=== PATIENT | female | born 1975 | race Caucasian/White ===

== ENCOUNTER 2018-11-28 20:56 | Emergency (ER) | payer BC, MEDICARE ==
--- NOTE | 2018-11-28 22:57 | ED ---
General Adult HPI - General Chief complaint: Recheck/Abnormal Lab/Rx Stated complaint: Stiff muscles & swelling Time Seen by Provider: 11/28/18 22:29 Source: patient, RN notes reviewed, old records reviewed Mode of arrival: ambulatory Limitations: no limitations - History of Present Illness Initial comments: This is a 43-year-old male the ER for evaluation. Patient has history of multiple medical issues. Psychiatric issues. Patient coming in today for joint pain and swelling. Joint pain throughout her body. Hand smoke mainly with most likely. Which she also has knees and ankles and hips, neck pain. Patient denies any trauma. No fevers. No nausea vomiting or diarrhea. No other associated complaints -: days(s) Location: neck, upper extremity, lower extremity Radiation: non-radiation Severity scale (1-10): 1 Quality: aching Consistency: constant, intermittent Improves with: none Worsens with: none Associated Symptoms: denies other symptoms Treatments Prior to Arrival: none - Related Data Home Medications Medication Instructions Recorded Confirmed Cholecalciferol [Vitamin D3] 1,000 unit PO DAILY 11/28/18 11/28/18 Cinnamon Bark [Cinnamon] 500 mg PO DAILY 11/28/18 11/28/18 Ibuprofen [Motrin] 600 mg PO Q8HR PRN 11/28/18 11/28/18 LORazepam [Ativan] 0.5 mg PO HS PRN 11/28/18 11/28/18 Magnesium 200 mg PO DAILY 11/28/18 11/28/18 [place]-3 Fatty Acids/Fish Oil [Fish 1 cap PO DAILY 11/28/18 11/28/18 Oil 1,000 mg Softgel] Phytonadione [Vitamin K] 5 mg PO DAILY 11/28/18 11/28/18 Psyllium Husk 100% [Metamucil 6 gm PO DAILY 11/28/18 11/28/18 Packet] carBAMazepine [TEGretol] 400 mg PO HS 11/28/18 11/28/18 Previous Rx's Medication Instructions Recorded predniSONE 50 mg PO DAILY #5 tab 11/29/18 Allergies Allergy/AdvReac Type Severity Reaction Status Date / Time acetaminophen [From Vicodin] Allergy Dyspnea Verified 11/28/18 23:04 hydrocodone [From Vicodin] Allergy Dyspnea Verified 11/28/18 23:04 lamotrigine [From Lamictal] Allergy Dyspnea Verified 11/28/18 23:04 Sulfa (Sulfonamide Allergy Rash/Hives Verified 11/28/18 23:04 Antibiotics) Review of Systems ROS Statement: Those systems with pertinent positive or pertinent negative responses have been documented in the HPI. ROS Other: All systems not noted in ROS Statement are negative. Past Medical History Past Medical History: Osteoarthritis (OA) History of Any Multi-Drug Resistant Organisms: None Reported Past Surgical History: No Surgical Hx Reported Past Psychological History: Bipolar Smoking Status: Current every day smoker Past Alcohol Use History: None Reported Past Drug Use History: None Reported General Exam Limitations: no limitations General appearance: alert, in no apparent distress Head exam: Present: atraumatic, normocephalic, normal inspection Eye exam: Present: normal appearance, PERRL, EOMI. Absent: scleral icterus, conjunctival injection, periorbital swelling ENT exam: Present: normal exam, mucous membranes moist Neck exam: Present: normal inspection. Absent: tenderness, meningismus, lymphadenopathy Respiratory exam: Present: normal lung sounds bilaterally. Absent: respiratory distress, wheezes, rales, rhonchi, stridor Cardiovascular Exam: Present: regular rate, normal rhythm, normal heart sounds. Absent: systolic murmur, diastolic murmur, rubs, gallop, clicks GI/Abdominal exam: Present: soft, normal bowel sounds. Absent: distended, tenderness, guarding, rebound, rigid Extremities exam: Present: normal inspection, full ROM, normal capillary refill. Absent: tenderness, pedal edema, joint swelling, calf tenderness Back exam: Present: normal inspection Neurological exam: Present: alert, oriented X3, CN II-XII intact Psychiatric exam: Present: normal affect, normal mood Skin exam: Present: warm, dry, intact, normal color. Absent: rash Course Vital Signs 11/28/18 21:25 Temperature 98.8 F Pulse Rate 94 Respiratory 18 Rate Blood Pressure 157/84 O2 Sat by Pulse 98 Oximetry - Reevaluation(s) Reevaluation #1: 11/28/18 23:02 Medical records reviewed, noncontributory Reevaluation #2: 11/28/18 23:02 Symptoms improved Medical Decision Making - Medical Decision Making 43 female the ER with multiple joints affecting her, swelling and arthritis. Patient be discharged to continue Motrin at home and start taking steroids here in the hospital. We will also discharge on short dose of steroids to follow-up with primary care - Lab Data Result diagrams: 11/28/18 22:55 11/28/18 22:55 Lab Results 11/28/18 11/28/18 11/28/18 Range/Units 22:55 22:55 22:55 WBC 9.7 (3.8-10.6) k/uL RBC 4.30 (3.80-5.40) m/uL Hgb 13.6 (11.4-16.0) gm/dL Hct 40.9 (34.0-46.0) % MCV 95.0 (80.0-100.0) fL MCH 31.5 (25.0-35.0) pg MCHC 33.2 (31.0-37.0) g/dL RDW 12.2 (11.5-15.5) % Plt Count 271 (150-450) k/uL Neutrophils % 59 % Lymphocytes % 33 % Monocytes % 6 % Eosinophils % 1 % Basophils % 0 % Neutrophils # 5.7 (1.3-7.7) k/uL Lymphocytes # 3.2 (1.0-4.8) k/uL Monocytes # 0.5 (0-1.0) k/uL Eosinophils # 0.1 (0-0.7) k/uL Basophils # 0.0 (0-0.2) k/uL Sodium 137 (137-145) mmol/L Potassium 4.4 (3.5-5.1) mmol/L Chloride 106 (98-107) mmol/L Carbon Dioxide 23 (22-30) mmol/L Anion Gap 8 mmol/L BUN 14 (7-17) mg/dL Creatinine 0.49 L (0.52-1.04) mg/dL Est GFR (CKD-EPI)AfAm >90 (>60 ml/min/1.73 sqM) Est GFR (CKD-EPI)NonAf >90 (>60 ml/min/1.73 sqM) Glucose 92 (74-99) mg/dL Calcium 9.4 (8.4-10.2) mg/dL Phosphorus 4.0 (2.5-4.5) mg/dL Magnesium 2.0 (1.6-2.3) mg/dL Total Bilirubin 0.3 (0.2-1.3) mg/dL AST 18 (14-36) U/L ALT 25 (9-52) U/L Alkaline Phosphatase 48 (38-126) U/L Creatine Kinase 51 (30-135) U/L CK-MB (CK-2) 0.4 (0.0-2.4) ng/mL Total Protein 6.5 (6.3-8.2) g/dL Albumin 4.1 (3.5-5.0) g/dL Heterophile Antibody (Negative) 11/28/18 Range/Units 23:10 WBC (3.8-10.6) k/uL RBC (3.80-5.40) m/uL Hgb (11.4-16.0) gm/dL Hct (34.0-46.0) % MCV (80.0-100.0) fL MCH (25.0-35.0) pg MCHC (31.0-37.0) g/dL RDW (11.5-15.5) % Plt Count (150-450) k/uL Neutrophils % % Lymphocytes % % Monocytes % % Eosinophils % % Basophils % % Neutrophils # (1.3-7.7) k/uL Lymphocytes # (1.0-4.8) k/uL Monocytes # (0-1.0) k/uL Eosinophils # (0-0.7) k/uL Basophils # (0-0.2) k/uL Sodium (137-145) mmol/L Potassium (3.5-5.1) mmol/L Chloride (98-107) mmol/L Carbon Dioxide (22-30) mmol/L Anion Gap mmol/L BUN (7-17) mg/dL Creatinine (0.52-1.04) mg/dL Est GFR (CKD-EPI)AfAm (>60 ml/min/1.73 sqM) Est GFR (CKD-EPI)NonAf (>60 ml/min/1.73 sqM) Glucose (74-99) mg/dL Calcium (8.4-10.2) mg/dL Phosphorus (2.5-4.5) mg/dL Magnesium (1.6-2.3) mg/dL Total Bilirubin (0.2-1.3) mg/dL AST (14-36) U/L ALT (9-52) U/L Alkaline Phosphatase (38-126) U/L Creatine Kinase (30-135) U/L CK-MB (CK-2) (0.0-2.4) ng/mL Total Protein (6.3-8.2) g/dL Albumin (3.5-5.0) g/dL Heterophile Antibody Negative (Negative) Disposition Clinical Impression: Polyarthritis Disposition: HOME SELF-CARE Condition: Good Instructions (If sedation given, give patient instructions): Arthralgia (ED), Arthritis (ED) Prescriptions: predniSONE 50 mg PO DAILY #5 tab Is patient prescribed a controlled substance at d/c from ED?: No Referrals: Stanton Wen DO [Primary Care Provider] - 1-2 days
[2018-11-28] MEDS: SODIUM CHLORIDE 0.9% 1,000 ML IV STA (23:03)
[2018-11-28] MEDS: KETOROLAC 30 MG/ML 1 ML VIAL IVP STA (23:05)
[2018-11-28] MEDS: DEXAMETHASONE SOD PHOSPHATE 10 MG/ML 1 ML VIAL IV STA (23:06)
[2018-11-28] MEDS: MORPHINE SULFATE 4 MG/ML SYRINGE IV STA (23:07)
[2018-11-29 00:23] LABS: Basophils % (A) 0 %; Eosinophils # (A) 0.1 k/uL (0-0.7); Eosinophils % (A) 1 %; HCT 40.9 % (34.0-46.0); HGB 13.6 gm/dL (11.4-16.0); Lymphocytes # (A) 3.2 k/uL (1.0-4.8); Lymphocytes % (A) 33 %; MCH 31.5 pg (25.0-35.0); MCHC 33.2 g/dL (31.0-37.0); Mean Platelet Volume 6.5; Monocytes # (A) 0.5 k/uL (0-1.0); Monocytes % (A) 6 %; Neutrophils # (A) 5.7 k/uL (1.3-7.7); Neutrophils % (A) 59 %; Platelet Count 271 k/uL (150-450); RDW 12.2 % (11.5-15.5); WBC 9.7 k/uL (3.8-10.6)
[2018-11-29 00:28] LABS: ALT 25 U/L (9-52); AST 18 U/L (14-36); Albumin 4.1 g/dL (3.5-5.0); Alkaline Phosphatase 48 U/L (38-126); Anion Gap 8 mmol/L; Blood Urea Nitrogen 14 mg/dL (7-17); Calcium 9.4 mg/dL (8.4-10.2); Carbon Dioxide 23 mmol/L (22-30); Chloride 106 mmol/L (98-107); Creatine Kinase 51 U/L (30-135); Glucose 92 mg/dL (74-99); Potassium 4.4 mmol/L (3.5-5.1); Sodium 137 mmol/L (137-145); Total Bilirubin 0.3 mg/dL (0.2-1.3); Total Protein 6.5 g/dL (6.3-8.2)
--- NOTE | 2018-11-29 01:46 | ED ---
Medical Decision Making - Lab Data Result diagrams: 11/28/18 22:55 11/28/18 22:55 Lab Results 11/28/18 11/28/18 11/28/18 Range/Units 22:55 22:55 22:55 WBC 9.7 (3.8-10.6) k/uL RBC 4.30 (3.80-5.40) m/uL Hgb 13.6 (11.4-16.0) gm/dL Hct 40.9 (34.0-46.0) % MCV 95.0 (80.0-100.0) fL MCH 31.5 (25.0-35.0) pg MCHC 33.2 (31.0-37.0) g/dL RDW 12.2 (11.5-15.5) % Plt Count 271 (150-450) k/uL Neutrophils % 59 % Lymphocytes % 33 % Monocytes % 6 % Eosinophils % 1 % Basophils % 0 % Neutrophils # 5.7 (1.3-7.7) k/uL Lymphocytes # 3.2 (1.0-4.8) k/uL Monocytes # 0.5 (0-1.0) k/uL Eosinophils # 0.1 (0-0.7) k/uL Basophils # 0.0 (0-0.2) k/uL Sodium 137 (137-145) mmol/L Potassium 4.4 (3.5-5.1) mmol/L Chloride 106 (98-107) mmol/L Carbon Dioxide 23 (22-30) mmol/L Anion Gap 8 mmol/L BUN 14 (7-17) mg/dL Creatinine 0.49 L (0.52-1.04) mg/dL Est GFR (CKD-EPI)AfAm >90 (>60 ml/min/1.73 sqM) Est GFR (CKD-EPI)NonAf >90 (>60 ml/min/1.73 sqM) Glucose 92 (74-99) mg/dL Calcium 9.4 (8.4-10.2) mg/dL Phosphorus 4.0 (2.5-4.5) mg/dL Magnesium 2.0 (1.6-2.3) mg/dL Total Bilirubin 0.3 (0.2-1.3) mg/dL AST 18 (14-36) U/L ALT 25 (9-52) U/L Alkaline Phosphatase 48 (38-126) U/L Creatine Kinase 51 (30-135) U/L CK-MB (CK-2) 0.4 (0.0-2.4) ng/mL Total Protein 6.5 (6.3-8.2) g/dL Albumin 4.1 (3.5-5.0) g/dL Heterophile Antibody (Negative) 11/28/18 Range/Units 23:10 WBC (3.8-10.6) k/uL RBC (3.80-5.40) m/uL Hgb (11.4-16.0) gm/dL Hct (34.0-46.0) % MCV (80.0-100.0) fL MCH (25.0-35.0) pg MCHC (31.0-37.0) g/dL RDW (11.5-15.5) % Plt Count (150-450) k/uL Neutrophils % % Lymphocytes % % Monocytes % % Eosinophils % % Basophils % % Neutrophils # (1.3-7.7) k/uL Lymphocytes # (1.0-4.8) k/uL Monocytes # (0-1.0) k/uL Eosinophils # (0-0.7) k/uL Basophils # (0-0.2) k/uL Sodium (137-145) mmol/L Potassium (3.5-5.1) mmol/L Chloride (98-107) mmol/L Carbon Dioxide (22-30) mmol/L Anion Gap mmol/L BUN (7-17) mg/dL Creatinine (0.52-1.04) mg/dL Est GFR (CKD-EPI)AfAm (>60 ml/min/1.73 sqM) Est GFR (CKD-EPI)NonAf (>60 ml/min/1.73 sqM) Glucose (74-99) mg/dL Calcium (8.4-10.2) mg/dL Phosphorus (2.5-4.5) mg/dL Magnesium (1.6-2.3) mg/dL Total Bilirubin (0.2-1.3) mg/dL AST (14-36) U/L ALT (9-52) U/L Alkaline Phosphatase (38-126) U/L Creatine Kinase (30-135) U/L CK-MB (CK-2) (0.0-2.4) ng/mL Total Protein (6.3-8.2) g/dL Albumin (3.5-5.0) g/dL Heterophile Antibody Negative (Negative) Disposition Clinical Impression: Polyarthritis Disposition: HOME SELF-CARE Condition: Good Instructions (If sedation given, give patient instructions): Arthralgia (ED), Arthritis (ED) Prescriptions: predniSONE 50 mg PO DAILY #5 tab Is patient prescribed a controlled substance at d/c from ED?: No Referrals: Rudy Mon DO [STAFF PHYSICIAN] - 1-2 days
[2018-11-29 01:48] VITALS: BP 139/79; PULSE 87; RESP 20; TEMP 97.7
[2018-11-29 11:10] LABS: Rheumatoid Factor 8 IU/mL (0-15)
[2018-11-29 11:50] LABS: EBV-VCA (IgG) >8.0 AI
== END 2018-11-29 02:14 | disposition home or self-care (01) ==
LOC: EC 20:56
DX: M13.0 Polyarthritis, unspecified (principal); F17.200 Nicotine dependence, unspecified, uncomplicated; Z79.899 Other long term (current) drug therapy; Z88.2 Allergy status to sulfonamides; Z88.5 Allergy status to narcotic agent; Z88.6 Allergy status to analgesic agent; Z88.8 Allergy status to other drugs, medicaments and biological substances
CPT/HCPCS: 36415; 86665 ×2; 80053; 86663; 82550; 82553; 83735; 84100; 85025; 86308; 86431; 86664; 86038; 86039; 99284; 96374; 96375 ×2; 96361 ×2; J2270; J1100; J1885

== ENCOUNTER 2018-12-31 03:04 | Emergency (ER) | payer OTHER, MEDICARE ==
[2018-12-31] MEDS ORDERED: MORPHINE SULFATE 4 MG/ML SYRINGE IV STA (03:35)
[2018-12-31] MEDS ORDERED: SODIUM CHLORIDE 0.9% 500 ML 500 ML IV STA (03:35)
--- NOTE | 2018-12-31 03:43 | ED ---
Neck Injury/Pain HPI - General Chief Complaint: Neck Pain/Injury Stated Complaint: neck/arm numbness Time Seen by Provider: 12/31/18 03:14 Mode of arrival: wheelchair Limitations: physical limitation - History of Present Illness Initial Comments: This patient is a 43-year-old woman with history of chronic neck pain. She states that tonight probably an hour ago while she was in bed she rolled and then experienced sharp neck pain that radiates to her left shoulder and arm. Th e patient states that also feels like there is some tingling to left arm and hand. The patient denies other symptoms. No chest pain. No dyspnea. No diaphoresis. MD Complaint: neck pain Onset/Timin -: hour(s) Place: home Radiation: left lateral, left shoulder Severity: severe Quality: sharp Consistency: constant Improves With: none Worsens With: movement of neck Associated Symptoms: tingling Treatments Prior to Arrival: none - Related Data Home Medications Medication Instructions Recorded Confirmed Cholecalciferol [Vitamin D3] 1,000 unit PO DAILY 11/28/18 11/28/18 Cinnamon Bark [Cinnamon] 500 mg PO DAILY 11/28/18 11/28/18 Ibuprofen [Motrin] 600 mg PO Q8HR PRN 11/28/18 11/28/18 LORazepam [Ativan] 0.5 mg PO HS PRN 11/28/18 11/28/18 Magnesium 200 mg PO DAILY 11/28/18 11/28/18 [place]-3 Fatty Acids/Fish Oil [Fish 1 cap PO DAILY 11/28/18 11/28/18 Oil 1,000 mg Softgel] Phytonadione [Vitamin K] 5 mg PO DAILY 11/28/18 11/28/18 Psyllium Husk 100% [Metamucil 6 gm PO DAILY 11/28/18 11/28/18 Packet] carBAMazepine [TEGretol] 400 mg PO HS 11/28/18 11/28/18 Previous Rx's Medication Instructions Recorded predniSONE 50 mg PO DAILY #5 tab 11/29/18 Methocarbamol [Robaxin-750] 750 mg PO TID PRN #30 tablet 12/31/18 predniSONE 60 mg PO DAILY #30 tab 12/31/18 Allergies Allergy/AdvReac Type Severity Reaction Status Date / Time acetaminophen [From Vicodin] Allergy Dyspnea Verified 12/31/18 03:11 hydrocodone [From Vicodin] Allergy Dyspnea Verified 12/31/18 03:11 lamotrigine [From Lamictal] Allergy Dyspnea Verified 12/31/18 03:11 Sulfa (Sulfonamide Allergy Rash/Hives Verified 12/31/18 03:11 Antibiotics) Review of Systems ROS Statement: Those systems with pertinent positive or pertinent negative responses have been documented in the HPI. ROS Other: All systems not noted in ROS Statement are negative. Constitutional: Denies: fever, chills, weakness Respiratory: Denies: cough, dyspnea Cardiovascular: Denies: chest pain, palpitations, syncope Gastrointestinal: Denies: abdominal pain, nausea, vomiting Musculoskeletal: Reports: as per HPI, other (Neck and shoulder pain) Skin: Denies: rash Neurological: Reports: paresthesias. Denies: headache, weakness Past Medical History Past Medical History: Osteoarthritis (OA) History of Any Multi-Drug Resistant Organisms: None Reported Past Surgical History: No Surgical Hx Reported Past Psychological History: Bipolar Smoking Status: Current every day smoker Past Alcohol Use History: None Reported Past Drug Use History: None Reported General Exam Limitations: physical limitation General appearance: alert, in no apparent distress Head exam: Present: atraumatic, normocephalic Eye exam: Present: normal appearance Neck exam: Absent: tenderness, meningismus Respiratory exam: Present: normal lung sounds bilaterally. Absent: respiratory distress, wheezes, rales, rhonchi, stridor Cardiovascular Exam: Present: normal rhythm, bradycardia (Rate 52 bpm), normal heart sounds. Absent: systolic murmur, diastolic murmur, rubs, gallop GI/Abdominal exam: Present: soft. Absent: distended, tenderness, guarding, rebound, mass Extremities exam: Present: normal inspection, normal capillary refill. Absent: pedal edema, calf tenderness Back exam: Present: normal inspection. Absent: CVA tenderness (R), CVA tenderness (L), vertebral tenderness Neurological exam: Present: alert, oriented X3. Absent: motor sensory deficit Skin exam: Present: warm, dry, intact, normal color. Absent: rash Course Vital Signs 12/31/18 12/31/18 12/31/18 03:08 03:30 03:46 Temperature Pulse Rate 52 L 60 83 Respiratory 18 18 18 Rate Blood Pressure 75/46 108/63 112/98 O2 Sat by Pulse 100 99 99 Oximetry 12/31/18 12/31/18 12/31/18 04:03 04:42 04:46 Temperature 97.4 F L Pulse Rate 81 80 Respiratory 18 17 Rate Blood Pressure 105/75 119/82 O2 Sat by Pulse 98 97 Oximetry Medical Decision Making - Lab Data Result diagrams: 12/31/18 03:20 12/31/18 03:20 Lab Results 12/31/18 12/31/18 12/31/18 Range/Units 03:20 03:20 03:20 WBC 13.8 H (3.8-10.6) k/uL RBC 4.29 (3.80-5.40) m/uL Hgb 13.4 (11.4-16.0) gm/dL Hct 40.7 (34.0-46.0) % MCV 94.9 (80.0-100.0) fL MCH 31.3 (25.0-35.0) pg MCHC 33.0 (31.0-37.0) g/dL RDW 12.4 (11.5-15.5) % Plt Count 359 (150-450) k/uL Neutrophils % 51 % Lymphocytes % 41 % Monocytes % 5 % Eosinophils % 1 % Basophils % 1 % Neutrophils # 7.0 (1.3-7.7) k/uL Lymphocytes # 5.6 H (1.0-4.8) k/uL Monocytes # 0.7 (0-1.0) k/uL Eosinophils # 0.2 (0-0.7) k/uL Basophils # 0.1 (0-0.2) k/uL Sodium 138 (137-145) mmol/L Potassium 4.1 (3.5-5.1) mmol/L Chloride 107 (98-107) mmol/L Carbon Dioxide 22 (22-30) mmol/L Anion Gap 9 mmol/L BUN 17 (7-17) mg/dL Creatinine 0.60 (0.52-1.04) mg/dL Est GFR (CKD-EPI)AfAm >90 (>60 ml/min/1.73 sqM) Est GFR (CKD-EPI)NonAf >90 (>60 ml/min/1.73 sqM) Glucose 143 H (74-99) mg/dL Calcium 9.2 (8.4-10.2) mg/dL Troponin I <0.012 (0.000-0.034) ng/mL C-Reactive Protein 5.3 (<10.0) mg/L - EKG Data EKG shows normal: sinus rhythm, axis (Normal), intervals (Normal), QRS complexes (Normal), ST-T waves (Normal) Rate: normal Disposition Clinical Impression: Cervical radiculopathy Disposition: HOME SELF-CARE Condition: Good Instructions (If sedation given, give patient instructions): Cervical Radiculopathy (ED) Prescriptions: predniSONE 60 mg PO DAILY #30 tab Methocarbamol [Robaxin-750] 750 mg PO TID PRN #30 tablet PRN Reason: pain Is patient prescribed a controlled substance at d/c from ED?: No Referrals: Neeraj Lacy MD [Primary Care Provider] - 1-2 days Sharon Gomez DO [Doctor of Osteopathic Medicine] - 1-2 days
[2018-12-31 03:48] LABS: Basophils # (A) 0.1 k/uL (0-0.2); Basophils % (A) 1 %; Eosinophils # (A) 0.2 k/uL (0-0.7); Eosinophils % (A) 1 %; HCT 40.7 % (34.0-46.0); HGB 13.4 gm/dL (11.4-16.0); Lymphocytes # (A) 5.6 k/uL (1.0-4.8); Lymphocytes % (A) 41 %; MCH 31.3 pg (25.0-35.0); MCV 94.9 fL (80.0-100.0); Mean Platelet Volume 7.3; Monocytes # (A) 0.7 k/uL (0-1.0); Monocytes % (A) 5 %; Neutrophils % (A) 51 %; Platelet Count 359 k/uL (150-450); RBC 4.29 m/uL (3.80-5.40); RDW 12.4 % (11.5-15.5); WBC 13.8 k/uL (3.8-10.6)
[2018-12-31 04:06] LABS: Anion Gap 9 mmol/L; Blood Urea Nitrogen 17 mg/dL (7-17); C Reactive Protein 5.3 mg/L (<10.0); Calcium 9.2 mg/dL (8.4-10.2); Carbon Dioxide 22 mmol/L (22-30); Chloride 107 mmol/L (98-107); Glucose 143 mg/dL (74-99); Potassium 4.1 mmol/L (3.5-5.1); Sodium 138 mmol/L (137-145)
--- NOTE | 2018-12-31 04:13 | CT ---
EXAM: CT Cervical Spine Without Intravenous Contrast CLINICAL HISTORY: pain TECHNIQUE: Axial computed tomography images of the cervical spine without intravenous contrast. CTDI is 8.9 mGy and DLP is 296.4 mGy-cm. This CT exam was performed using one or more of the following dose reduction techniques: automated exposure control, adjustment of the mA and/or kV according to patient size, and/or use of iterative reconstruction technique. Coronal and sagittal reformatted images were created and reviewed. COMPARISON: No relevant prior studies available. FINDINGS: Vertebrae: Unremarkable. No acute fracture. Straightening normal cervical lordosis which may be due to positioning Discs/spinal canal/neural foramina: No acute findings. No spinal canal stenosis. Soft tissues: Unremarkable. IMPRESSION: No evidence for fracture or malalignment cervical spine
[2018-12-31] MEDS ORDERED: methylPREDNISolone SOD SUCCI 125 MG/2 ML VIAL IV STA (04:15)
[2018-12-31] MEDS ORDERED: KETOROLAC 30 MG/ML 1 ML VIAL IVP STA (05:36)
[2018-12-31] MEDS ORDERED: HYDROmorphone 1 MG/ML 1 ML SYRINGE IVP STA (05:36)
[2018-12-31 07:05] VITALS: BP 112/70; PULSE 74; RESP 16; TEMP 98.3
== END 2018-12-31 07:05 | disposition home or self-care (01) ==
LOC: EC 03:04
DX: M54.12 Radiculopathy, cervical region (principal); R00.1 Bradycardia, unspecified; F17.200 Nicotine dependence, unspecified, uncomplicated; Z79.899 Other long term (current) drug therapy; Z88.5 Allergy status to narcotic agent; Z88.2 Allergy status to sulfonamides; Z88.6 Allergy status to analgesic agent; Z88.8 Allergy status to other drugs, medicaments and biological substances
CPT/HCPCS: 99284 ×2; 96374 ×2; 96375 ×4; 36415; 80048; 84484; 85025; 86140; 72125; J2270; J2930; J1885; J1170

== ENCOUNTER 2019-01-13 18:54 | Inpatient (IN) | payer OTHER, MEDICARE ==
[2019-01-13] MEDS ORDERED: AMOXIC-POT CLAV 875-125MG 1 EACH TAB PO STA (19:54)
[2019-01-13 20:35] LABS: Amphetamine Screen,Urine Not Detected (NotDetected); Barbiturate Screen,Urine Not Detected (NotDetected); Benzodiazepines Screen,Urine Not Detected (NotDetected); Cocaine Screen,Urine Not Detected (NotDetected); Methadone Screen, Urine Not Detected (NotDetected); Opiate Screen,Urine Not Detected (NotDetected); Oxycodone Screen, Urine Not Detected (NotDetected); Phencyclidine Screen,Urine Not Detected (NotDetected); Tricyclic Antidepressant,Urine Not Detected (NotDetected); Urn Cannabinoid Scrn Not Detected (NotDetected)
--- NOTE | 2019-01-13 20:46 | ED ---
Psych HPI - General Source: patient, police Mode of arrival: ambulatory <Sera Thorpe - Last Filed: 01/13/19 22:35> <Luna Louie - Last Filed: 01/13/19 23:39> - General Chief Complaint: Psychiatric Symptoms Stated Complaint: EPS eval Time Seen by Provider: 01/13/19 19:20 - History of Present Illness Initial Comments: 43-year-old female patient with past medical history significant for bipolar disorder depressive type. Patient was brought in by the [employer] after being called by her for patient exhibiting manic behavior. Patient states she was cleaning house all day long. Patient denies suicidal or homicidal ideation. She denies any current injuries or physical concerns. She denies alcohol or drug use. Patient denies any recent rash, fever, chills, shortness breath, chest pain, abdominal pain, nausea, vomiting, diarrhea, constipation, back pain, numbness, tingling, dizziness, weakness, hematuria, dysuria, urinary urgency, urinary frequency, headache, visual changes, or any other complaints. (Sera Thorpe) - Related Data Home Medications Medication Instructions Recorded Confirmed Cholecalciferol [Vitamin D3] 1,000 unit PO DAILY 11/28/18 11/28/18 Cinnamon Bark [Cinnamon] 500 mg PO DAILY 11/28/18 11/28/18 Ibuprofen [Motrin] 600 mg PO Q8HR PRN 11/28/18 11/28/18 LORazepam [Ativan] 0.5 mg PO HS PRN 11/28/18 11/28/18 Magnesium 200 mg PO DAILY 11/28/18 11/28/18 [place]-3 Fatty Acids/Fish Oil [Fish 1 cap PO DAILY 11/28/18 11/28/18 Oil 1,000 mg Softgel] Phytonadione [Vitamin K] 5 mg PO DAILY 11/28/18 11/28/18 Psyllium Husk 100% [Metamucil 6 gm PO DAILY 11/28/18 11/28/18 Packet] carBAMazepine [TEGretol] 400 mg PO HS 11/28/18 11/28/18 Previous Rx's Medication Instructions Recorded predniSONE 50 mg PO DAILY #5 tab 11/29/18 Methocarbamol [Robaxin-750] 750 mg PO TID PRN #30 tablet 12/31/18 predniSONE 60 mg PO DAILY #30 tab 12/31/18 Allergies Allergy/AdvReac Type Severity Reaction Status Date / Time acetaminophen [From Vicodin] Allergy Dyspnea Verified 01/13/19 19:12 hydrocodone [From Vicodin] Allergy Dyspnea Verified 01/13/19 19:12 lamotrigine [From Lamictal] Allergy Dyspnea Verified 01/13/19 19:12 Sulfa (Sulfonamide Allergy Rash/Hives Verified 01/13/19 19:12 Antibiotics) Review of Systems ROS Other: All systems not noted in ROS Statement are negative. <Sera Thorpe M - Last Filed: 01/13/19 22:35> ROS Other: All systems not noted in ROS Statement are negative. <Luna Louie - Last Filed: 01/13/19 23:39> ROS Statement: Those systems with pertinent positive or pertinent negative responses have been documented in the HPI. Past Medical History Past Medical History: Osteoarthritis (OA) History of Any Multi-Drug Resistant Organisms: None Reported Past Surgical History: No Surgical Hx Reported Past Psychological History: Bipolar Smoking Status: Current every day smoker Past Alcohol Use History: Occasional Past Drug Use History: None Reported <Sera Thorpe - Last Filed: 01/13/19 22:35> General Exam Limitations: no limitations General appearance: alert, in no apparent distress, other (Physical well- developed, well-nourished adult female patient in no acute distress. Vital signs upon presentation are temperature 98.5F, pulse 77, respirations 18, blood pressure 156/93, pulse ox 98% on room air.) Eye exam: Present: normal appearance, PERRL, EOMI. Absent: scleral icterus, conjunctival injection, periorbital swelling ENT exam: Present: normal exam, normal oropharynx, mucous membranes moist Respiratory exam: Present: normal lung sounds bilaterally. Absent: respiratory distress, wheezes, rales, rhonchi, stridor Cardiovascular Exam: Present: regular rate, normal rhythm, normal heart sounds. Absent: systolic murmur, diastolic murmur, rubs, gallop, clicks Extremities exam: Present: full ROM, normal capillary refill, other (Left hand edema, temperature is normal, no cellulitis.). Absent: tenderness, pedal edema, joint swelling, calf tenderness Neurological exam: Present: alert, oriented X3, CN II-XII intact Psychiatric exam: Present: normal affect, normal mood Skin exam: Present: warm, dry, intact, normal color. Absent: rash <Sera Thorpe - Last Filed: 01/13/19 22:35> Course Vital Signs 01/13/19 01/13/19 19:08 21:58 Temperature 98.5 F 99.0 F Pulse Rate 77 117 H Respiratory 18 18 Rate Blood Pressure 156/93 134/81 O2 Sat by Pulse 98 100 Oximetry Medical Decision Making <Sera Thorpe - Last Filed: 01/13/19 22:35> <Luna Louie - Last Filed: 01/13/19 23:39> - Medical Decision Making Patient seen and evaluated by emergency psychiatric services, associated benefit from inpatient admission, she'll be transferred to the mental health unit. (Sera Thorpe) I personally saw and evaluated this patient. I agree with the mid-level's ass essment as well as the psychiatric service assessment that this patient is currently manic and potentially a danger to herself. Patient would benefit from inpatient psychiatric care. I did complete the psychiatric certification paperwork for the patient to be admitted involuntarily. Patient did state that she would be admitted voluntarily however she does have a history of involuntary admissions and trying to leave immediately upon arrival to the psychiatric facility therefore I feel that it would be in her best interest and safety to have a formal certification completed. (Luna Louie) - Lab Data Lab Results 01/13/19 Range/Units 20:05 Urine Opiates Screen Not Detected (NotDetected) Ur Oxycodone Screen Not Detected (NotDetected) Urine Methadone Screen Not Detected (NotDetected) Ur Propoxyphene Screen Not Detected (NotDetected) Ur Barbiturates Screen Not Detected (NotDetected) U Tricyclic Antidepress Not Detected (NotDetected) Ur Phencyclidine Scrn Not Detected (NotDetected) Ur Amphetamines Screen Not Detected (NotDetected) U Methamphetamines Scrn Not Detected (NotDetected) U Benzodiazepines Scrn Not Detected (NotDetected) Urine Cocaine Screen Not Detected (NotDetected) U Marijuana (THC) Screen Not Detected (NotDetected) Disposition - Out of Hospital Transfer - Req. Specs Out of Hospital Transfer - Requested Specifics: Psychiatric Non-ICU ([facility]) <Sera Thorpe M - Last Filed: 01/13/19 22:35> <Luna Louie - Last Filed: 01/13/19 23:39> Clinical Impression: Jaycee Disposition: TRANSFER TO PSYCH HOSP/UNIT Condition: Serious
[2019-01-13] MEDS ORDERED: MAGNESIUM HYDROXIDE 2,400 MG/10 ML CUP PO PRN (22:31)
[2019-01-13] MEDS ORDERED: MAG HYDROX/AL HYDROX/SIMETH 30 ML CUP PO PRN (22:31)
[2019-01-13 22:46] LABS: Appearance,Urine Clear (Clear); Bilirubin,Urine Negative (Negative); Blood,Urine Trace (Negative); Color,Urine Colorless; Glucose,Urine (UA) Negative (Negative); Ketones,Urine Negative (Negative); Leukocyte Esterase,Urine Negative (Negative); Mucus,Urine Rare /hpf; Nitrite,Urine Negative (Negative); PH, Urine 6.5 (5.0-8.0); Protein,Urine Negative (Negative); RBC,Urine <1 /hpf (0-5); Specific Gravity,Urine 1.001 (1.001-1.035); Urobilinogen,Urine <2.0 mg/dL (<2.0)
[2019-01-14 10:15] LABS: Basophils % (A) 0 %; Eosinophils # (A) 0.1 k/uL (0-0.7); Eosinophils % (A) 1 %; HCT 37.9 % (34.0-46.0); HGB 12.1 gm/dL (11.4-16.0); Lymphocytes # (A) 2.7 k/uL (1.0-4.8); Lymphocytes % (A) 19 %; MCH 30.3 pg (25.0-35.0); MCHC 32.1 g/dL (31.0-37.0); MCV 94.5 fL (80.0-100.0); Mean Platelet Volume 7.4; Monocytes # (A) 0.8 k/uL (0-1.0); Monocytes % (A) 6 %; Neutrophils # (A) 10.2 k/uL (1.3-7.7); Neutrophils % (A) 73 %; Platelet Count 321 k/uL (150-450); RBC 4.01 m/uL (3.80-5.40); RDW 12.5 % (11.5-15.5); WBC 13.9 k/uL (3.8-10.6)
[2019-01-14 10:17] LABS: ALT 45 U/L (9-52); AST 52 U/L (14-36); Albumin 4.1 g/dL (3.5-5.0); Alkaline Phosphatase 52 U/L (38-126); Anion Gap 7 mmol/L; Blood Urea Nitrogen 5 mg/dL (7-17); Calcium 9.1 mg/dL (8.4-10.2); Carbon Dioxide 28 mmol/L (22-30); Chloride 106 mmol/L (98-107); Cholesterol 123 mg/dL (<200); Glucose 103 mg/dL (74-99); HDL Cholesterol 55 mg/dL (40-60); LDL Cholesterol,Calculated 52 mg/dL (0-99); Potassium 3.7 mmol/L (3.5-5.1); Sodium 141 mmol/L (137-145); Total Bilirubin 0.4 mg/dL (0.2-1.3); Total Protein 6.5 g/dL (6.3-8.2); Triglycerides 81 mg/dL (<150)
[2019-01-14 10:25] VITALS: BMI 23.9
[2019-01-14 10:55] LABS: Glucose,Whole Blood 135 mg/dL (75-99)
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
[2019-01-14] MEDS: ZIPRASIDONE 20 MG VIAL IM PRN (12:36)
[2019-01-14] MEDS: LORazepam 2 MG/ML INJ IM PRN (12:36)
[2019-01-14 19:09] LABS: Hemoglobin A1C 5.7 % (4.0-6.0)
[2019-01-14] MEDS: LORazepam 1 MG TAB PO PRN (21:06)
[2019-01-15] MEDS: LORazepam 1 MG TAB PO PRN ×2 (05:22→19:59)
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
[2019-01-15] MEDS ORDERED: ZIPRASIDONE 20 MG CAP PO STA (20:16)
[2019-01-15] MEDS: ZIPRASIDONE 20 MG VIAL IM PRN (20:25)
[2019-01-16] MEDS: LORazepam 1 MG TAB PO PRN (02:59)
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
[2019-01-16] MEDS: ZIPRASIDONE 20 MG VIAL IM PRN (19:31)
[2019-01-17] MEDS ORDERED: diphenhydrAMINE 50 MG/ML 1 ML VIAL IM STA (01:17)
[2019-01-17] MEDS ORDERED: chlorproMAZINE 25 MG/ML 2 ML AMP IM STA (01:17)
[2019-01-17] MEDS: LORazepam 2 MG/ML INJ IM PRN (01:42)
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
[2019-01-17] MEDS: flUPHENAZine 2.5 MG/ML (MDV) 10 ML VIAL IM SCH ×3 (12:12→23:25)
[2019-01-18] MEDS: flUPHENAZine 2.5 MG/ML (MDV) 10 ML VIAL IM SCH ×3 (05:03→18:37)
[2019-01-18] MEDS: DIVALPROEX ER 250 MG TAB.ER.24H PO SCH (08:47)
--- NOTE | 2019-01-18 14:07 | PN ---
DATE OF SERVICE: 01/18/2019 PROGRESS NOTE CHIEF COMPLAINT: The patient had excessive energy bazaar behavior and aggression. INTERVAL HISTORY: Patient has been doing fair. She continues to be disorganized in thoughts and behavior. She wanders the unit. When I first saw her she was in another patient's room and seemed to be in a somewhat bewildered state. She later on attempted to walk back into that room and then seemed to realize it was not her room. She had no specific complaints today. She has not attended group today. She did attend one group yesterday though did not engage in any purposeful activity. She is generally cooperative. She seems to be communicating a little better compared to how she has been. She did not have any specific complaints or concerns when I talked to her. She did not report any specific problems or issues relating to her medications. She was vague about whether or not she slept well last night. Her appetite is fair. MENTAL STATUS: Patient sat with some restlessness. Eye contact was fair. Overall psychomotor activity was slowed. She answered questions with brief responses. Her thoughts were vague and not always goal directed. She had a flat affect. Her mood was reserved. She did not appear to be significantly distressed. On cognitive exam when I asked her the day of the week she first said and then Sunday. She thought for a little bit and then said it is almost Easter. When I asked her the month, she said March then said her birthday was 1975. After that, she said it was December. When I asked her her medications she said without hesitation. "Depakote and Prolixin". She did not make an effort to answer formal cognitive questions. ASSESSMENT: I will continue the current diagnosis, namely bipolar disorder apparently there is consideration for a steroid induced psychosis. The patient will continue current medications including Depakote 250 mg a day and Prolixin 2.5 mg q.6 hours. There is not a Depakote level documented in the chart. Her Depakote level is likely to be low given her current dose. Whether or not she would benefit from titrating up on Prolixin to a more therapeutic range remains to be seen. We will continue to focus on stabilization and discharge planning. MMODL / IJN: [id number] / [facility]
[2019-01-18] MEDS ORDERED: BENZTROPINE 2 MG/2 ML AMP IM ONE (20:09)
[2019-01-19] MEDS: flUPHENAZine 2.5 MG/ML (MDV) 10 ML VIAL IM SCH ×3 (00:47→13:00)
[2019-01-19] MEDS: DIVALPROEX ER 250 MG TAB.ER.24H PO SCH (09:39)
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
[2019-01-19] MEDS: BENZTROPINE MESYLATE 0.5 MG TAB PO SCH (20:58)
[2019-01-19 22:24] LABS: Appearance,Urine Clear (Clear); Bacteria,Urine Rare /hpf; Bilirubin,Urine Negative (Negative); Blood,Urine Moderate (Negative); Color,Urine Light Yellow; Glucose,Urine (UA) Negative (Negative); Ketones,Urine Negative (Negative); Leukocyte Esterase,Urine Negative (Negative); Nitrite,Urine Negative (Negative); Protein,Urine Negative (Negative); RBC,Urine 1 /hpf (0-5); Specific Gravity,Urine 1.003 (1.001-1.035); Squamous Epithelial Cell,Urine 5 /hpf (0-4); Urobilinogen,Urine <2.0 mg/dL (<2.0); WBC,Urine 1 /hpf (0-5)
[2019-01-20] MEDS: DIVALPROEX ER 250 MG TAB.ER.24H PO SCH (08:53)
[2019-01-20] MEDS: BENZTROPINE MESYLATE 0.5 MG TAB PO SCH ×2 (08:53→21:42)
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
[2019-01-20] MEDS: MULTIVITAMINS, THERA 1 EACH TAB PO SCH (13:02)
[2019-01-20] MEDS: DIVALPROEX ER 500 MG TAB.ER.24H PO SCH (21:42)
[2019-01-20] MEDS: PSYLLIUM HUSK 100% 6 GM PACKET PO SCH (21:45)
[2019-01-21] MEDS: LORazepam 1 MG TAB PO PRN (00:27)
[2019-01-21] MEDS: BENZTROPINE MESYLATE 0.5 MG TAB PO SCH (08:43)
[2019-01-21] MEDS: PSYLLIUM HUSK 100% 6 GM PACKET PO SCH ×2 (08:43→21:14)
[2019-01-21] MEDS: MULTIVITAMINS, THERA 1 EACH TAB PO SCH (13:47)
--- NOTE | 2019-01-21 16:23 | PN ---
PROGRESS NOTE DATE OF SERVICE: 01/21/2019 CHIEF COMPLAINT: The patient had excessive energy, bizarre behavior and aggression. INTERVAL HISTORY: Patient has been doing fairly well. She had a quiet evening last night. She slept fairly well today. She has been up. She attended two groups, though not another. Yesterday she did not attend any groups at all. The patient reports that she is doing better in terms of her mood. Her thoughts are much clearer than they had been earlier in her admission. She will be out in the day area. She will walk around the unit with a somewhat slow measured to gait. She will interact with others, though she does tend to keep to herself more than not. She feels that restlessness that she has had may be a little less than she had been experiencing. She otherwise seems to tolerate her psychotropic medications. MENTAL STATUS: Patient gave fairly good eye contact. Psychomotor activity was somewhat restless. She answered questions with direct responses. Her thoughts were clear and coherent. At times she rambled some and was a little tangential in her thoughts. She would talk quite a bit, though it was not clear that she had pressured speech or flight of ideas. Her affect was a little constricted. Her mood was quiet. She did not appear to be significantly distressed. There was no clear indication for hypomanic, manic or depressive symptoms. She was oriented and alert. She was ambulatory with normal gait and strength. There was no tremor, abnormal movements or rigidity. ASSESSMENT: I will continue the current diagnosis and treatment plan. The patient appears to be showing progress. Overall, it appears that her thoughts and function have improved significantly. We will continue to focus on stabilization and discharge planning. MMODL / IJN: [id number] /
[2019-01-21] MEDS: IBUPROFEN 400 MG TAB PO PRN ×2 (16:49→23:11)
[2019-01-21] MEDS: DIVALPROEX ER 500 MG TAB.ER.24H PO SCH (21:14)
[2019-01-21] MEDS: BENZTROPINE MESYLATE 1 MG TAB PO SCH (21:14)
[2019-01-22] MEDS: LORazepam 1 MG TAB PO PRN ×2 (01:14→23:07)
[2019-01-22] MEDS: PSYLLIUM HUSK 100% 6 GM PACKET PO SCH ×2 (09:15→20:49)
[2019-01-22] MEDS: MULTIVITAMINS, THERA 1 EACH TAB PO SCH (13:32)
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
[2019-01-22] MEDS: IBUPROFEN 400 MG TAB PO PRN (15:00)
[2019-01-22] MEDS: BENZTROPINE MESYLATE 1 MG TAB PO SCH (20:49)
[2019-01-22] MEDS: DIVALPROEX ER 500 MG TAB.ER.24H PO SCH (20:49)
[2019-01-23] MEDS: IBUPROFEN 400 MG TAB PO PRN (01:10)
[2019-01-23] MEDS: PSYLLIUM HUSK 100% 6 GM PACKET PO SCH ×2 (08:43→21:45)
[2019-01-23] MEDS ORDERED: IBUPROFEN 400 MG TAB PO PRN (12:33)
[2019-01-23] MEDS ORDERED: IBUPROFEN 800 MG TAB PO PRN (12:37)
[2019-01-23] MEDS: MULTIVITAMINS, THERA 1 EACH TAB PO SCH (12:42)
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
[2019-01-23] MEDS: DIVALPROEX ER 500 MG TAB.ER.24H PO SCH (21:45)
[2019-01-23] MEDS: BENZTROPINE MESYLATE 1 MG TAB PO SCH (21:45)
[2019-01-24] MEDS: LORazepam 1 MG TAB PO PRN (00:51)
[2019-01-24 07:01] VITALS: BP 109/60; PULSE 86; RESP 12; TEMP 97.9
[2019-01-24] MEDS: PSYLLIUM HUSK 100% 6 GM PACKET PO SCH (08:41)
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
== END 2019-01-24 11:33 | disposition home or self-care (01) | DRG 885 ==
LOC: EC 18:54 → 3MHU 22:29
PROVIDERS: ADMIT Psychiatry & Neurology Psychiatry; ATTEND Psychiatry & Neurology Psychiatry
DX: F31.2 Bipolar disorder, current episode manic severe with psychotic features (principal); Z91.19 Patient's noncompliance with other medical treatment and regimen; F17.200 Nicotine dependence, unspecified, uncomplicated; M19.90 Unspecified osteoarthritis, unspecified site; M54.12 Radiculopathy, cervical region; G24.9 Dystonia, unspecified; Z79.899 Other long term (current) drug therapy; Z88.6 Allergy status to analgesic agent; Z88.5 Allergy status to narcotic agent; Z88.2 Allergy status to sulfonamides; Z88.8 Allergy status to other drugs, medicaments and biological substances
CPT/HCPCS: 80053; 80061; 80165; 80306; 81001; 81025; 82075; 83036; 84443; 85025; 87086; 99285

== ENCOUNTER 2019-02-10 11:19 | Inpatient (IN) | payer OTHER, MEDICARE ==
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
[2019-02-10 12:34] LABS: Amphetamine Screen,Urine Not Detected (NotDetected); Barbiturate Screen,Urine Not Detected (NotDetected); Benzodiazepines Screen,Urine Not Detected (NotDetected); Cocaine Screen,Urine Not Detected (NotDetected); Methadone Screen, Urine Not Detected (NotDetected); Opiate Screen,Urine Not Detected (NotDetected); Oxycodone Screen, Urine Not Detected (NotDetected); Phencyclidine Screen,Urine Not Detected (NotDetected); Tricyclic Antidepressant,Urine Not Detected (NotDetected); Urn Cannabinoid Scrn Not Detected (NotDetected)
[2019-02-10] MEDS ORDERED: ZIPRASIDONE 20 MG VIAL IM PRN (15:13)
[2019-02-10] MEDS ORDERED: MAGNESIUM HYDROXIDE 2,400 MG/10 ML CUP PO PRN (15:13)
[2019-02-10] MEDS ORDERED: MAG HYDROX/AL HYDROX/SIMETH 30 ML CUP PO PRN (15:13)
[2019-02-10] MEDS ORDERED: LORazepam 2 MG/ML INJ IM PRN (15:17)
[2019-02-10] MEDS: DIVALPROEX ER 500 MG TAB.ER.24H PO SCH (16:45)
[2019-02-10 17:23] LABS: Amorphous Sediment,Urine Rare /hpf; Appearance,Urine Clear (Clear); Bilirubin,Urine Negative (Negative); Blood,Urine Trace (Negative); Color,Urine Light Yellow; Glucose,Urine (UA) 3+ (Negative); Ketones,Urine Negative (Negative); Leukocyte Esterase,Urine Negative (Negative); Mucus,Urine Rare /hpf; Nitrite,Urine Negative (Negative); PH, Urine 6.5 (5.0-8.0); Protein,Urine Negative (Negative); RBC,Urine 1 /hpf (0-5); Specific Gravity,Urine 1.006 (1.001-1.035); Squamous Epithelial Cell,Urine 7 /hpf (0-4); Urobilinogen,Urine <2.0 mg/dL (<2.0); WBC,Urine <1 /hpf (0-5)
[2019-02-10 17:56] VITALS: BMI 22.1
[2019-02-10] MEDS: PSYLLIUM HUSK 100% 6 GM PACKET PO SCH (21:00)
[2019-02-10] MEDS ORDERED: BENZTROPINE MESYLATE 1 MG TAB PO SCH (21:00)
[2019-02-10] MEDS: LORazepam 1 MG TAB PO PRN (22:55)
[2019-02-11] MEDS: PSYLLIUM HUSK 100% 6 GM PACKET PO SCH ×2 (10:19→21:13)
[2019-02-11 10:34] LABS: Basophils # (A) 0.1 k/uL (0-0.2); Basophils % (A) 1 %; Eosinophils # (A) 0.1 k/uL (0-0.7); Eosinophils % (A) 1 %; HCT 43.5 % (34.0-46.0); HGB 13.9 gm/dL (11.4-16.0); Lymphocytes # (A) 2.2 k/uL (1.0-4.8); Lymphocytes % (A) 24 %; MCH 30.5 pg (25.0-35.0); MCHC 31.9 g/dL (31.0-37.0); MCV 95.7 fL (80.0-100.0); Mean Platelet Volume 7.3; Monocytes # (A) 0.5 k/uL (0-1.0); Monocytes % (A) 6 %; Neutrophils # (A) 6.3 k/uL (1.3-7.7); Neutrophils % (A) 69 %; Platelet Count 294 k/uL (150-450); RBC 4.54 m/uL (3.80-5.40); RDW 13.5 % (11.5-15.5); WBC 9.2 k/uL (3.8-10.6)
[2019-02-11 11:26] LABS: ALT 26 U/L (9-52); AST 24 U/L (14-36); Albumin 4.2 g/dL (3.5-5.0); Alkaline Phosphatase 40 U/L (38-126); Anion Gap 11 mmol/L; Blood Urea Nitrogen 10 mg/dL (7-17); Calcium 9.6 mg/dL (8.4-10.2); Carbon Dioxide 21 mmol/L (22-30); Chloride 106 mmol/L (98-107); Cholesterol 132 mg/dL (<200); Glucose 120 mg/dL (74-99); HDL Cholesterol 47 mg/dL (40-60); LDL Cholesterol,Calculated 62 mg/dL (0-99); Potassium 4.9 mmol/L (3.5-5.1); Sodium 138 mmol/L (137-145); Total Bilirubin 0.6 mg/dL (0.2-1.3); Total Protein 6.5 g/dL (6.3-8.2); Triglycerides 116 mg/dL (<150)
--- NOTE | 2019-02-11 11:29 | P.HP ---
Psychiatric H&P - . H&P Date: 02/11/19 History & Physical: Allergies Allergy/AdvReac Type Severity Reaction Status Date / Time acetaminophen [From Vicodin] Allergy Dyspnea Verified 02/10/19 15:34 carbamazepine [From Tegretol] Allergy Rash/Hives Verified 02/10/19 15:34 hydrocodone [From Vicodin] Allergy Dyspnea Verified 02/10/19 15:34 lamotrigine [From Lamictal] Allergy Dyspnea Verified 02/10/19 15:34 Sulfa (Sulfonamide Allergy Rash/Hives Verified 02/10/19 15:34 Antibiotics) Vital Signs Temp 98.8 F 02/11/19 02:31 Pulse 130 H 02/11/19 02:31 Resp 16 02/11/19 02:31 BP 107/70 02/11/19 02:31 Pulse Ox 98 02/10/19 15:29 Intake & Output 02/10/19 02/11/19 02/11/19 18:59 06:59 18:59 Weight 56.699 kg Laboratory Last Values Urine Color Light Yellow 02/10/19 11:58 Urine Appearance Clear (Clear) 02/10/19 11:58 Urine pH 6.5 (5.0-8.0) 02/10/19 11:58 Ur Specific [place] 1.006 (1.001-1.035) 02/10/19 11:58 Urine Protein Negative (Negative) 02/10/19 11:58 Urine Glucose (UA) 3+ (Negative) H 02/10/19 11:58 Urine Ketones Negative (Negative) 02/10/19 11:58 Urine Blood Trace (Negative) H 02/10/19 11:58 Urine Nitrite Negative (Negative) 02/10/19 11:58 Urine Bilirubin Negative (Negative) 02/10/19 11:58 Urine Urobilinogen <2.0 mg/dL (<2.0) 02/10/19 11:58 Ur Leukocyte Esterase Negative (Negative) 02/10/19 11:58 Urine RBC 1 /hpf (0-5) 02/10/19 11:58 Urine WBC <1 /hpf (0-5) 02/10/19 11:58 Ur Squamous Epith Cells 7 /hpf (0-4) H 02/10/19 11:58 Amorphous Sediment Rare /hpf (None) H 02/10/19 11:58 Urine Mucus Rare /hpf (None) H 02/10/19 11:58 Urine HCG, Qual Not Detected (Not Detectd) 02/10/19 11:58 Urine Opiates Screen Not Detected (NotDetected) 02/10/19 11:58 Ur Oxycodone Screen Not Detected (NotDetected) 02/10/19 11:58 Urine Methadone Screen Not Detected (NotDetected) 02/10/19 11:58 Ur Propoxyphene Screen Not Detected (NotDetected) 02/10/19 11:58 Ur Barbiturates Screen Not Detected (NotDetected) 02/10/19 11:58 Valproic Acid 124.1 ug/mL H* 02/10/19 15:49 U Tricyclic Antidepress Not Detected (NotDetected) 02/10/19 11:58 Ur Phencyclidine Scrn Not Detected (NotDetected) 02/10/19 11:58 Ur Amphetamines Screen Not Detected (NotDetected) 02/10/19 11:58 U Methamphetamines Scrn Not Detected (NotDetected) 02/10/19 11:58 U Benzodiazepines Scrn Not Detected (NotDetected) 02/10/19 11:58 Urine Cocaine Screen Not Detected (NotDetected) 02/10/19 11:58 U Marijuana (THC) Screen Not Detected (NotDetected) 02/10/19 11:58 Assessment and Plan Assessment: This Is a 43-year-old female history depression who is brought in by EMS for evaluation. She was demonstrating flight of ideas and a lot of anxiety. She apparently did have a gun in her house that authorities were looking for. She does not express any thoughts of suicide to me. He is very anxious, however. Tongue about boats and trucks and kids. MD Complaint: other pt brought in by EMS. pt is very anxious and tearful. pt presents with paranoid ideation and requests that staff go into room before she would enter. pt ruminates about being on disability but not needing it and brings this up several times throughout assessment. pt exhibits flight of ideas and requires frequent redirection. pt states that she is here because "My daughter and called it in. Everyone in my house was yelling. I was afraid. There's something weird. God protects me. I don't think there's anything wrong with not wanting to be disabled." pt is hyperverbal and frequently breaks into crying spells. pt states, "I just need to be quiet right now. I need to speak to an trial attorney." pt unable to answer why she needs to speak to an trial attorney. When asked about previous attempts, pt states, "I'll tell you what...for my records...I did not tell the truth at [facility] to get admitted. I wasn't actually suicidal." pt then states, "That's all there is to say about this." When asked about sleep, pt states, "I'm having a strange side effect from Depakote. It just seemed like something was a little off. With all these people yelling at me, it felt like no one was on my side. I stayed up last night." pt reports that she did not sleep last night because she was "uneasy about things" and had "a lot of anxiety." When asked about change in appetite, pt states, "I've been eating a lot of potassium. A lot of bananas."pt states that "My has guns. A lot of guns. They're locked up. You need a little blue hunt. I hid it in the bathroom." When asked for clarification, pt states, "I hid a handgun in the bathroom." Petition filled out by states that pt had barricaded herself in a locked bathroom with a gun and ammunition. - Related Data Home Medications Medication Instructions Recorded Confirmed Divalproex ER [Depakote ER] 500 mg PO HS@209902/10/19 02/10/19 Methocarbamol [Robaxin-750] 750 - 1,500 mg PO TID PRN 02/10/19 02/10/19 Multivitamins, Thera [Multivitamin 1 tab PO DAILY@1200 02/10/19 02/10/19 (formulary)] fluPHENAZine [Prolixin] 10 mg PO HS@2100 02/10/19 02/10/19 Previous Rx's Medication Instructions Recorded Benztropine Mesylate [Cogentin] 1 mg PO HS 30 Days #30 tab 01/24/19 Psyllium Husk 100% [Metamucil 6 gm PO BID packet 01/24/19 Packet] Allergies Allergy/AdvReac Type Severity Reaction Status Date / Time acetaminophen [From Vicodin] Allergy Dyspnea Verified 02/10/19 11:28 carbamazepine [From Tegretol] Allergy Rash/Hives Verified 02/10/19 11:28 hydrocodone [From Vicodin] Allergy Dyspnea Verified 02/10/19 11:28 lamotrigine [From Lamictal] Allergy Dyspnea Verified 02/10/19 11:28 Sulfa (Sulfonamide Allergy Rash/Hives Verified 02/10/19 11:28 Antibiotics) Past Medical History Past Medical History: Osteoarthritis (OA) History of Any Multi-Drug Resistant Organisms: None Reported Past Surgical History: No Surgical Hx Reported Past Anesthesia/Blood Transfusion Reactions: Unable to Obtain Past Psychological History: Bipolar Smoking Status: Former smoker Past Alcohol Use History: Occasional Past Drug Use History: None Reported Musculoskeletal Examination - Abnormal/Involuntary Movements: [none] Strength: [greater than antigravity (greater than/equal to 3/5) in all extremities] Muscle Tone: [no impairment] Gait: [grossly normal Station: [grossly normal : Mental Status Examination - General Appearance: [disheveled, bizarre, appears younger than stated age] Speech/Language: [spontaneous, rapid, expressive, loud] Attitude/Behavior: [cooperative, guarded, irritable, withdrawn, indifferent] Mood: [ depressed, anxious, elated, irritable, angry, fearful, hopelessness] Affect: [full range, lively, flat, incongruent, labile, blunted constricted, other] Orientation: [time, person, place situation] Thought Content: [somatic delusions, obsessions, phobias] Risk Factors: [denies suicidal (ideations, plan) Perception: [wnl,denies hallucinations (auditory, visual, tactile), other] Thought Processes: [ concrete, circumstantial, tangential, other] Concentration/Attention Span: [impaired] [Per observation and interview with the patient] Recent Memory: [ impaired] [0 out of 3 in 3 minutes] Remote Memory: [ impaired] [past events, as related history] Intelligence: [below average] [based on history, based on vocabulary, syntax, grammar, and content] Judgement: [ fair] [per patient's behavior/history of present illness] Insight: [ fair] [understanding severity of illness/history of present illness] Admitting Diagnosis: [Bipolar disorder in acute chris and acute psychosis] Patient Strengths - Housing stability: [x] Resources - social, interpersonal, monetary: x Interpersonal relationships and supports available - family, relatives, friends: [x] Patient Limitations: [medication, non-compliance, intellectual impairment, complicated medical illness, legal issues Initial Plan of Care: [admit involuntary due to no comprehension to [facility]. He will be evaluated by medicine, psychiatry, nursing staff, social work and occupational evaluation for a biopsychosocial treatment to be integrated into a calvo milieu therapeutic environment. She'll remain on the Depakote and will start with Latuda -20 mg with meal and raise Cogentin 1 mg twice a day. Estimated Length of Stay: [7-10 days] Initial Discharge Plan: [home, [facility], referred to therapist, partial hospital, intensive outpatient, residential placement, other] Prognosis: [ guarded] Justification for Inpatient Hospitalization - [ agitation, anxiety, depression resulting in significant loss of functioning.] [Dangerous to self, others, or property with need for controlled environment.] [Emotional or behavioral conditions and complications requiring 24 hour medical and nursing care.] [Need for special drug therapy, or other therapeutic program requiring continuous hospitalization.] [Failure of social or occupational functioning.] [Inability to meet basic life and health needs.] [Legally mandated admission.] (1) Bipolar I disorder with chris Current Visit: Yes Status: Acute Priority: High Code(s): F31.10 - BIPOLAR DISORD, CRNT EPISODE MANIC W/O PSYCH FEATURES, UNSP SNOMED Code(s): 16490738 Time with Patient: Less than 30
[2019-02-11 11:32] LABS: Valproic Acid (Depakene) 49.6 ug/mL
[2019-02-11] MEDS: MULTIVITAMINS, THERA 1 EACH TAB PO SCH (12:42)
[2019-02-11] MEDS: LORazepam 1 MG TAB PO PRN (14:58)
[2019-02-11 19:38] LABS: Hemoglobin A1C 5.9 % (4.0-6.0)
[2019-02-11] MEDS: DIVALPROEX ER 500 MG TAB.ER.24H PO SCH (21:13)
[2019-02-11] MEDS: BENZTROPINE MESYLATE 1 MG TAB PO SCH (21:14)
[2019-02-12] MEDS ORDERED: LORazepam 1 MG TAB ONE (00:36)
--- NOTE | 2019-02-12 07:53 | P.HPIM ---
History of Present Illness H&P Date: 02/12/19 Chief Complaint: Altered mental status suicidality This is a medical history of physical and 43-year-old white female who has struggled with mental illness over the last several months. This is her second admission in the last 8 weeks. She is petitioned by her and has multiple histories of previous mental illness breakdown's. Paranoia and suspicion is still noted. Supposedly, she is petitioned due to patient's stating that she barricaded herself in the household and had weapons. Review of Systems Constitutional: Denies chills, Denies fever Eyes: denies blurred vision, denies pain Ears, nose, mouth and throat: Denies headache, Denies sore throat Cardiovascular: Denies chest pain, Denies shortness of breath Genitourinary: Denies dysuria, Denies hematuria Psychiatric: Reports as per HPI Past Medical History Past Medical History: Osteoarthritis (OA) History of Any Multi-Drug Resistant Organisms: None Reported Past Surgical History: No Surgical Hx Reported Past Anesthesia/Blood Transfusion Reactions: Unable to Obtain Smoking Status: Former smoker Medications and Allergies Home Medications Medication Instructions Recorded Confirmed Type Benztropine Mesylate [Cogentin] 1 mg PO HS 30 Days #30 tab 01/24/19 02/10/19 Rx Psyllium Husk 100% [Metamucil 6 gm PO BID packet 01/24/19 02/10/19 Rx Packet] Divalproex ER [Depakote ER] 500 mg PO HS@2100 02/10/19 02/10/19 History Methocarbamol [Robaxin-750] 750 - 1,500 mg PO TID PRN 02/10/19 02/10/19 History Multivitamins, Thera [Multivitamin 1 tab PO DAILY@1200 02/10/19 02/10/19 History (formulary)] fluPHENAZine [Prolixin] 10 mg PO HS@2100 02/10/19 02/10/19 History Allergies Allergy/AdvReac Type Severity Reaction Status Date / Time acetaminophen [From Vicodin] Allergy Dyspnea Verified 02/10/19 15:34 carbamazepine [From Tegretol] Allergy Rash/Hives Verified 02/10/19 15:34 hydrocodone [From Vicodin] Allergy Dyspnea Verified 02/10/19 15:34 lamotrigine [From Lamictal] Allergy Dyspnea Verified 02/10/19 15:34 Sulfa (Sulfonamide Allergy Rash/Hives Verified 02/10/19 15:34 Antibiotics) Physical Exam Vitals: Vital Signs Temp Pulse Resp BP 02/12/19 00:15 98.7 F 95 14 123/84 - Constitutional General appearance: no acute distress - EENT Eyes: EOMI - Respiratory Respiratory: bilateral: CTA - Cardiovascular Rhythm: regular Heart sounds: normal: S1, S2 Abnormal Heart Sounds: no S3 Gallop - Gastrointestinal General gastrointestinal: soft, no tenderness - Musculoskeletal Musculoskeletal: gait normal - Psychiatric Psychiatric: no appropriate affect Results CBC & Chem 7: 02/11/19 08:55 02/11/19 08:55 Labs: Abnormal Lab Results - Last 24 Hours (Table) 02/11/19 Range/Units 08:55 Carbon Dioxide 21 L (22-30) mmol/L Creatinine 0.50 L (0.52-1.04) mg/dL Glucose 120 H (74-99) mg/dL Thrombosis Risk Factor Assmnt - Choose All That Apply Any of the Below Risk Factors Present?: No Other Risk Factors: No Other congenital or acquired thrombophilia - If yes, enter type in comment: No Thrombosis Risk Factor Assessment Level: Very Low Risk Assessment and Plan (1) Bipolar I disorder with jaycee Current Visit: Yes Status: Acute Priority: High Code(s): F31.10 - BIPOLAR DISORD, CRNT EPISODE MANIC W/O PSYCH FEATURES, UNSP SNOMED Code(s): 68397598 (2) Depression Current Visit: Yes Status: Acute Code(s): F32.9 - MAJOR DEPRESSIVE DISORDER, SINGLE EPISODE, UNSPECIFIED SNOMED Code(s): 97490961 (3) Jaycee Current Visit: No Status: Acute Code(s): F30.9 - MANIC EPISODE, UNSPECIFIED SNOMED Code(s): 456012509 Plan: Recurrent altered mental status and mental breakdown. We'll continue follow from a medical perspective. Reconcile medications as necessary. Continue inpatient treatment Prognosis is guarded secondary to her history and multiple history of mental breakdown. Time with Patient: Less than 30
[2019-02-12] MEDS ORDERED: LURASIDONE 20 MG TAB PO SCH (09:00)
[2019-02-12] MEDS: BENZTROPINE MESYLATE 1 MG TAB PO SCH ×2 (09:16→21:14)
[2019-02-12] MEDS: PSYLLIUM HUSK 100% 6 GM PACKET PO SCH ×2 (09:17→21:31)
--- NOTE | 2019-02-12 11:11 | P.PN ---
Subjective Progress Note Date: 02/12/19 Principal diagnosis: Bipolar disorder in acute chris and acute psychosis] 02/12/2019:chart reviewed, discussed in team. Interview with patient and still remains irritable, paranoid and depressed. Objective - Vital Signs Vital signs: Vital Signs Temp 98.7 F 02/12/19 00:15 Pulse 95 02/12/19 00:15 Resp 14 02/12/19 00:15 BP 123/84 02/12/19 00:15 Pulse Ox 98 02/10/19 15:29 - Labs CBC & Chem 7: 02/11/19 08:55 02/11/19 08:55 Labs: Abnormal Lab Results - Last 24 Hours (Table) 02/11/19 Range/Units 08:55 Carbon Dioxide 21 L (22-30) mmol/L Creatinine 0.50 L (0.52-1.04) mg/dL Glucose 120 H (74-99) mg/dL Assessment and Plan Assessment: This Is a 43-year-old female history depression who is brought in by EMS for evaluation. She was demonstrating flight of ideas and a lot of anxiety. She apparently did have a gun in her house that authorities were looking for. She does not express any thoughts of suicide to me. He is very anxious, however. Tongue about boats and trucks and kids. MD Complaint: other pt brought in by EMS. pt is very anxious and tearful. pt presents with paranoid ideation and requests that staff go into room before she would enter. pt ruminates about being on disability but not needing it and brings this up several times throughout assessment. pt exhibits flight of ideas and requires frequent redirection. pt states that she is here because "My daughter and called it in. Everyone in my house was yelling. I was afraid. There's something weird. God protects me. I don't think there's anything wrong with not wanting to be disabled." pt is hyperverbal and frequently breaks into crying spells. pt states, "I just need to be quiet right now. I need to speak to an workers compensation attorney." pt unable to answer why she needs to speak to an workers compensation attorney. When asked about previous attempts, pt states, "I'll tell you what...for my records...I did not tell the truth at [facility] to get admitted. I wasn't actually suicidal." pt then states, "That's all there is to say about this." When asked about sleep, pt states, "I'm having a strange side effect from Depako te. It just seemed like something was a little off. With all these people yelling at me, it felt like no one was on my side. I stayed up last night." pt reports that she did not sleep last night because she was "uneasy about things" and had "a lot of anxiety." When asked about change in appetite, pt states, "I've been eating a lot of potassium. A lot of bananas."pt states that "My has guns. A lot of guns. They're locked up. You need a little blue hunt. I hid it in the bathroom." When asked for clarification, pt states, "I hid a handgun in the bathroom." Petition filled out by states that pt had barricaded herself in a locked bathroom with a gun and ammunition. - Related Data Home Medications Medication Instructions Recorded Confirmed Divalproex ER [Depakote ER] 500 mg PO HS@2100 02/10/19 02/10/19 Methocarbamol [Robaxin-750] 750 - 1,500 mg PO TID PRN 02/10/19 02/10/19 Multivitamins, Thera [Multivitamin 1 tab PO DAILY@1200 02/10/19 02/10/19 (formulary)] fluPHENAZine [Prolixin] 10 mg PO HS@2100 02/10/19 02/10/19 Previous Rx's Medication Instructions Recorded Benztropine Mesylate [Cogentin] 1 mg PO HS 30 Days #30 tab 01/24/19 Psyllium Husk 100% [Metamucil 6 gm PO BID packet 01/24/19 Packet] Allergies Allergy/AdvReac Type Severity Reaction Status Date / Time acetaminophen [From Vicodin] Allergy Dyspnea Verified 02/10/19 11:28 carbamazepine [From Tegretol] Allergy Rash/Hives Verified 02/10/19 11:28 hydrocodone [From Vicodin] Allergy Dyspnea Verified 02/10/19 11:28 lamotrigine [From Lamictal] Allergy Dyspnea Verified 02/10/19 11:28 Sulfa (Sulfonamide Allergy Rash/Hives Verified 02/10/19 11:28 Antibiotics) Past Medical History Past Medical History: Osteoarthritis (OA) History of Any Multi-Drug Resistant Organisms: None Reported Past Surgical History: No Surgical Hx Reported Past Anesthesia/Blood Transfusion Reactions: Unable to Obtain Past Psychological History: Bipolar Smoking Status: Former smoker Past Alcohol Use History: Occasional Past Drug Use History: None Reported Musculoskeletal Examination - Abnormal/Involuntary Movements: [none] Strength: [greater than antigravity (greater than/equal to 3/5) in all extremities] Muscle Tone: [no impairment] Gait: [grossly normal Station: [grossly normal : Mental Status Examination - General Appearance: [disheveled, bizarre, appears younger than stated age] Speech/Language: [spontaneous, rapid, expressive, loud] Attitude/Behavior: [cooperative, guarded, irritable, withdrawn, indifferent] Mood: [ depressed, anxious, elated, irritable, angry, fearful, hopelessness] Affect: [full range, lively, flat, incongruent, labile, blunted constricted, other] Orientation: [time, person, place situation] Thought Content: [somatic delusions, obsessions, phobias] Risk Factors: [denies suicidal (ideations, plan) Perception: [wnl,denies hallucinations (auditory, visual, tactile), other] Thought Processes: [ concrete, circumstantial, tangential, other] Concentration/Attention Span: [impaired] [Per observation and interview with the patient] Recent Memory: [ impaired] [0 out of 3 in 3 minutes] Remote Memory: [ impaired] [past events, as related history] Intelligence: [below average] [based on history, based on vocabulary, syntax, grammar, and content] Judgement: [ fair] [per patient's behavior/history of present illness] Insight: [ fair] [understanding severity of illness/history of present illness] Admitting Diagnosis: [Bipolar disorder in acute chris and acute psychosis] Patient Strengths - Housing stability: [x] Resources - social, interpersonal, monetary: x Interpersonal relationships and supports available - family, relatives, friends: [x] Patient Limitations: [medication, non-compliance, intellectual impairment, complicated medical illness, legal issues Initial Plan of Care: [admit involuntary due to no comprehension to [facility]. He will be evaluated by medicine, psychiatry, nursing staff, social work and occupational evaluation for a biopsychosocial treatment to be integrated into a cal[facility] milieu therapeutic environment. She'll remain on the Depakote and will start with Latuda -20 mg with meal and raise Cogentin 1 mg twice a day. Estimated Length of Stay: [7-10 days] Initial Discharge Plan: [home, [facility], referred to therapist, partial hospital, intensive outpatient, residential placement, other] Prognosis: [ guarded] Justification for Inpatient Hospitalization - [ agitation, anxiety, depression resulting in significant loss of functioning.] [Dangerous to self, others, or property with need for controlled environment.] [Emotional or behavioral conditions and complications requiring 24 hour medical and nursing care.] [Need for special drug therapy, or other therapeutic program requiring theodore nuous hospitalization.] [Failure of social or occupational functioning.] [Inability to meet basic life and health needs.] [Legally mandated admission.] (1) Bipolar I disorder with chris Current Visit: Yes Status: Acute Priority: High Code(s): F31.10 - BIPOLAR DISORD, CRNT EPISODE MANIC W/O PSYCH FEATURES, UNSP SNOMED Code(s): 56821013 Time with Patient: Less than 30
[2019-02-12] MEDS: MULTIVITAMINS, THERA 1 EACH TAB PO SCH (11:33)
[2019-02-12] MEDS: DIVALPROEX ER 500 MG TAB.ER.24H PO SCH (21:14)
[2019-02-13] MEDS: MAGNESIUM OXIDE 400 MG TAB PO SCH (08:12)
[2019-02-13] MEDS: LURASIDONE 40 MG TAB PO SCH (08:12)
[2019-02-13] MEDS: BENZTROPINE MESYLATE 1 MG TAB PO SCH ×2 (08:12→20:58)
[2019-02-13] MEDS: PSYLLIUM HUSK 100% 6 GM PACKET PO SCH ×2 (08:14→20:58)
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
[2019-02-13] MEDS: MULTIVITAMINS, THERA 1 EACH TAB PO SCH (13:16)
[2019-02-13] MEDS: LURASIDONE 20 MG TAB PO SCH (17:46)
[2019-02-13] MEDS: DIVALPROEX ER 500 MG TAB.ER.24H PO SCH (20:58)
[2019-02-14] MEDS: LURASIDONE 40 MG TAB PO SCH (08:56)
[2019-02-14] MEDS: MAGNESIUM OXIDE 400 MG TAB PO SCH (08:56)
[2019-02-14] MEDS: BENZTROPINE MESYLATE 1 MG TAB PO SCH ×2 (08:56→20:04)
[2019-02-14] MEDS: PSYLLIUM HUSK 100% 6 GM PACKET PO SCH ×2 (08:57→20:08)
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
[2019-02-14] MEDS: MULTIVITAMINS, THERA 1 EACH TAB PO SCH (12:53)
[2019-02-14 16:06] LABS: C Reactive Protein, High Sens 2.5 mg/L (0.000-3.000)
[2019-02-14] MEDS: LURASIDONE 20 MG TAB PO SCH (19:34)
[2019-02-14] MEDS: DIVALPROEX ER 500 MG TAB.ER.24H PO SCH (20:04)
[2019-02-15] MEDS: BENZTROPINE MESYLATE 1 MG TAB PO SCH ×2 (07:43→20:49)
[2019-02-15] MEDS: MAGNESIUM OXIDE 400 MG TAB PO SCH (07:43)
[2019-02-15] MEDS: LURASIDONE 40 MG TAB PO SCH (07:43)
[2019-02-15] MEDS: PSYLLIUM HUSK 100% 6 GM PACKET PO SCH ×2 (08:21→20:49)
--- NOTE | 2019-02-15 10:03 | P.PN ---
Progress Note - Text Interval history: The patient is found in the hallway she follows me to an interview room. She indicates her mood is sad. She is tearful throughout the session. She states that her told her he never wants her to return she states she will build to see her 13-year-old daughter again. She indicates she is not attending groups. Numerous time she states she doesn't know where she will live upon discharge. We reviewed her psychotropic medications. She states that she would like it noted that the Latuda appears to be causing inflammation in her left hand. Mental status exam: The patient is a thin female. She is dressed in her own clothing she is mildly disheveled. Her affect varies between constricted and tearful. She lacks insight as to why she was admitted to the hospital. There is documentation that she presented manic and psychotic and she is unable to appreciate those symptoms as part of her initial presentation. She demonstrated circumstantial thinking at times tangential thinking. She demonstrated no verbal or physical aggressiveness. She reports no thoughts of wanting to harm herself or others. Insight and judgment impaired. Plan: The patient will continue on her current psychotropic medication. She is encouraged to participate in the milieu for coping skill development. We will monitor her for safety. Vital signs reviewed. Suggestions for cognitive reframing were offered.
[2019-02-15] MEDS: MULTIVITAMINS, THERA 1 EACH TAB PO SCH (11:46)
[2019-02-15] MEDS: LURASIDONE 20 MG TAB PO SCH (16:57)
[2019-02-15] MEDS: DIVALPROEX ER 500 MG TAB.ER.24H PO SCH (20:49)
[2019-02-16] MEDS: LURASIDONE 40 MG TAB PO SCH (08:46)
[2019-02-16] MEDS: MULTIVITAMINS, THERA 1 EACH TAB PO SCH ×2 (08:46→12:20)
[2019-02-16] MEDS: MAGNESIUM OXIDE 400 MG TAB PO SCH (08:46)
[2019-02-16] MEDS: BENZTROPINE MESYLATE 1 MG TAB PO SCH ×2 (08:47→20:14)
[2019-02-16] MEDS: PSYLLIUM HUSK 100% 6 GM PACKET PO SCH ×2 (08:47→20:14)
--- NOTE | 2019-02-16 09:22 | P.PN ---
Progress Note - Text Interval history: The patient is found in the hallway she follows me to an interview room. She indicates that she slept well despite staff recording she slept 3 hours. Appetite stable. She length about her concern about where she will go upon discharge. She feels she cannot return to her 's home. She is reassured that this will be discussed prior to her discharge further with her attending psychiatrist and rn social services. She had no questions or concerns regarding medications today. Mental status exam: The patient is alert she is dressed in her own clothing hygiene grooming adequate. She has spontaneous speech she is verbose but not pressured. I do have to interrupt in order to ask another question. She indicates feeling better today and is less fearful. She is reporting no suicidal or homicidal thoughts. She denies any symptoms of psychosis however they may persist. She demonstrates no verbal or physical aggressiveness. Insight and judgment limited. Thought process can be briefly linear she demonstrated circumstantial thinking. She can be tangential at times. She demonstrates no involuntary repetitive movements. Plan: The patient will continue on her current psychotropic medications. We will monitor her for safety and encourage full participation in the milieu. Vital signs reviewed.
[2019-02-16] MEDS: LURASIDONE 20 MG TAB PO SCH (18:40)
[2019-02-16] MEDS: DIVALPROEX ER 500 MG TAB.ER.24H PO SCH (20:14)
[2019-02-17] MEDS: LURASIDONE 40 MG TAB PO SCH (08:31)
[2019-02-17] MEDS: BENZTROPINE MESYLATE 1 MG TAB PO SCH ×2 (08:31→21:36)
[2019-02-17] MEDS: MAGNESIUM OXIDE 400 MG TAB PO SCH (08:31)
[2019-02-17] MEDS: PSYLLIUM HUSK 100% 6 GM PACKET PO SCH ×2 (08:49→21:35)
[2019-02-17] MEDS: MULTIVITAMINS, THERA 1 EACH TAB PO SCH (12:06)
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
[2019-02-17] MEDS ORDERED: LURASIDONE 20 MG TAB PO SCH (17:00)
[2019-02-17] MEDS: DIVALPROEX ER 500 MG TAB.ER.24H PO SCH (21:35)
[2019-02-18] MEDS: PSYLLIUM HUSK 100% 6 GM PACKET PO SCH ×2 (09:37→20:54)
[2019-02-18] MEDS: BENZTROPINE MESYLATE 1 MG TAB PO SCH ×2 (09:37→20:51)
[2019-02-18] MEDS: MAGNESIUM OXIDE 400 MG TAB PO SCH (09:37)
[2019-02-18] MEDS: MULTIVITAMINS, THERA 1 EACH TAB PO SCH (12:52)
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
[2019-02-18] MEDS: LURASIDONE 20 MG TAB PO SCH (16:52)
[2019-02-18] MEDS: DIVALPROEX ER 250 MG TAB.ER.24H PO SCH (20:52)
[2019-02-19] MEDS: MAGNESIUM OXIDE 400 MG TAB PO SCH (08:51)
[2019-02-19] MEDS: BENZTROPINE MESYLATE 1 MG TAB PO SCH ×2 (08:51→20:52)
[2019-02-19] MEDS: MULTIVITAMINS, THERA 1 EACH TAB PO SCH (08:51)
[2019-02-19] MEDS: PSYLLIUM HUSK 100% 6 GM PACKET PO SCH ×2 (08:52→21:52)
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
[2019-02-19] MEDS: LURASIDONE 20 MG TAB PO SCH (18:23)
[2019-02-19] MEDS: DIVALPROEX ER 250 MG TAB.ER.24H PO SCH (20:53)
[2019-02-20] MEDS: BENZTROPINE MESYLATE 1 MG TAB PO SCH ×2 (09:02→21:06)
[2019-02-20] MEDS: MAGNESIUM OXIDE 400 MG TAB PO SCH (09:02)
[2019-02-20] MEDS: PSYLLIUM HUSK 100% 6 GM PACKET PO SCH ×2 (09:03→21:07)
[2019-02-20] MEDS: MULTIVITAMINS, THERA 1 EACH TAB PO SCH (12:16)
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
--- NOTE | 2019-02-20 12:32 | P.DS ---
Providers Date of admission: 02/10/19 14:30 Expected date of discharge: 02/21/19 Attending physician: Vinicius Berry DO Consults: 02/10/19 18:48 Consult Physician Routine Consulting Provider: Neeraj Lacy Consult Reason/Comments: H&P Do you want consulting provider notified?: Yes Primary care physician: Neeraj Lacy - Discharge Diagnosis(es) (1) Bipolar I disorder with chris Allergies Allergy/AdvReac Type Severity Reaction Status Date / Time acetaminophen [From Vicodin] Allergy Dyspnea Verified 02/10/19 15:34 carbamazepine [From Tegretol] Allergy Rash/Hives Verified 02/10/19 15:34 hydrocodone [From Vicodin] Allergy Dyspnea Verified 02/10/19 15:34 lamotrigine [From Lamictal] Allergy Dyspnea Verified 02/10/19 15:34 Sulfa (Sulfonamide Allergy Rash/Hives Verified 02/10/19 15:34 Antibiotics) Vital Signs Temp 98.8 F 02/11/19 02:31 Pulse 130 H 02/11/19 02:31 Resp 16 02/11/19 02:31 BP 107/70 02/11/19 02:31 Pulse Ox 98 02/10/19 15:29 Intake & Output 02/10/19 02/11/19 02/11/19 18:59 06:59 18:59 Weight 56.699 kg Laboratory Last Values Urine Color Light Yellow 02/10/19 11:58 Urine Appearance Clear (Clear) 02/10/19 11:58 Urine pH 6.5 (5.0-8.0) 02/10/19 11:58 Ur Specific [place] 1.006 (1.001-1.035) 02/10/19 11:58 Urine Protein Negative (Negative) 02/10/19 11:58 Urine Glucose (UA) 3+ (Negative) H 02/10/19 11:58 Urine Ketones Negative (Negative) 02/10/19 11:58 Urine Blood Trace (Negative) H 02/10/19 11:58 Urine Nitrite Negative (Negative) 02/10/19 11:58 Urine Bilirubin Negative (Negative) 02/10/19 11:58 Urine Urobilinogen <2.0 mg/dL (<2.0) 02/10/19 11:58 Ur Leukocyte Esterase Negative (Negative) 02/10/19 11:58 Urine RBC 1 /hpf (0-5) 02/10/19 11:58 Urine WBC <1 /hpf (0-5) 02/10/19 11:58 Ur Squamous Epith Cells 7 /hpf (0-4) H 02/10/19 11:58 Amorphous Sediment Rare /hpf (None) H 02/10/19 11:58 Urine Mucus Rare /hpf (None) H 02/10/19 11:58 Urine HCG, Qual Not Detected (Not Detectd) 02/10/19 11:58 Urine Opiates Screen Not Detected (NotDetected) 02/10/19 11:58 Ur Oxycodone Screen Not Detected (NotDetected) 02/10/19 11:58 Urine Methadone Screen Not Detected (NotDetected) 02/10/19 11:58 Ur Propoxyphene Screen Not Detected (NotDetected) 02/10/19 11:58 Ur Barbiturates Screen Not Detected (NotDetected) 02/10/19 11:58 Valproic Acid 124.1 ug/mL H* 02/10/19 15:49 U Tricyclic Antidepress Not Detected (NotDetected) 02/10/19 11:58 Ur Phencyclidine Scrn Not Detected (NotDetected) 02/10/19 11:58 Ur Amphetamines Screen Not Detected (NotDetected) 02/10/19 11:58 U Methamphetamines Scrn Not Detected (NotDetected) 02/10/19 11:58 U Benzodiazepines Scrn Not Detected (NotDetected) 02/10/19 11:58 Urine Cocaine Screen Not Detected (NotDetected) 02/10/19 11:58 U Marijuana (THC) Screen Not Detected (NotDetected) 02/10/19 11:58 Assessment and Plan Assessment: This Is a 43-year-old female history depression who is brought in by EMS for evaluation. She was demonstrating flight of ideas and a lot of anxiety. She apparently did have a gun in her house that authorities were looking for. She does not express any thoughts of suicide to me. He is very anxious, however. Tongue about boats and trucks and kids. Complaint: other pt brought in by EMS. pt is very anxious and tearful. pt presents with paranoid ideation and requests that staff go into room before she would enter. pt ruminates about being on disability but not needing it and brings this up several times throughout assessment. pt exhibits flight of ideas and requires frequent redirection. pt states that she is here because "My daughter and called it in. Everyone in my house was yelling. I was afraid. There's something weird. God protects me. I don't think there's anything wrong with not wanting to be disabled." pt is hyperverbal and frequently breaks into crying spells. pt states, "I just need to be quiet right now. I need to speak to an professional advisor." pt unable to answer why she needs to speak to an professional advisor. When asked about previous attempts, pt states, "I'll tell you what...for my records...I did not tell the truth at [facility] to get admitted. I wasn't actually suicidal." pt then states, "That's all there is to say about this." When asked about sleep, pt states, "I'm having a strange side effect from Depakote. It just seemed like something was a little off. With all these people yelling at me, it felt like no one was on my side. I stayed up last night." pt reports that she did not sleep last night because she was "uneasy about things" and had "a lot of anxiety." When asked about change in appetite, pt states, "I've been eating a lot of potassium. A lot of bananas."pt states that "My has guns. A lot of guns. They're locked up. You need a little blue hunt. I hid it in the bathroom." When asked for clarification, pt states, "I hid a handgun in the bathroom." Petition filled out by states that pt had barricaded herself in a locked bathroom with a gun and ammunition. - Related Data Home Medications Medication Instructions Recorded Confirmed Divalproex ER [Depakote ER] 500 mg PO HS@2100 02/10/19 02/10/19 Methocarbamol [Robaxin-750] 750 - 1,500 mg PO TID PRN 02/10/19 02/10/19 Multivitamins, Thera [Multivitamin 1 tab PO DAILY@1200 02/10/19 02/10/19 (formulary)] fluPHENAZine [Prolixin] 10 mg PO HS@2100 02/10/19 02/10/19 Previous Rx's Medication Instructions Recorded Benztropine Mesylate [Cogentin] 1 mg PO HS 30 Days #30 tab 01/24/19 Psyllium Husk 100% [Metamucil 6 gm PO BID packet 01/24/19 Packet] Allergies Allergy/AdvReac Type Severity Reaction Status Date / Time acetaminophen [From Vicodin] Allergy Dyspnea Verified 02/10/19 11:28 carbamazepine [From Tegretol] Allergy Rash/Hives Verified 02/10/19 11:28 hydrocodone [From Vicodin] Allergy Dyspnea Verified 02/10/19 11:28 lamotrigine [From Lamictal] Allergy Dyspnea Verified 02/10/19 11:28 Sulfa (Sulfonamide Allergy Rash/Hives Verified 02/10/19 11:28 Antibiotics) Past Medical History Past Medical History: Osteoarthritis (OA) History of Any Multi-Drug Resistant Organisms: None Reported Past Surgical History: No Surgical Hx Reported Past Anesthesia/Blood Transfusion Reactions: Unable to Obtain Past Psychological History: Bipolar Smoking Status: Former smoker Past Alcohol Use History: Occasional Past Drug Use History: None Reported Musculoskeletal Examination - Abnormal/Involuntary Movements: [none] Strength: [greater than antigravity (greater than/equal to 3/5) in all extremities] Muscle Tone: [no impairment] Gait: [grossly normal Station: [grossly normal : Mental Status Examination - General Appearance: [disheveled, bizarre, appears younger than stated age] Speech/Language: [spontaneous, rapid, expressive, loud] Attitude/Behavior: [cooperative, guarded, irritable, withdrawn, indifferent] Mood: [ depressed, anxious, elated, irritable, angry, fearful, hopelessness] Affect: [full range, lively, flat, incongruent, labile, blunted constricted, other] Orientation: [time, person, place situation] Thought Content: [somatic delusions, obsessions, phobias] Risk Factors: [denies suicidal (ideations, plan) Perception: [wnl,denies hallucinations (auditory, visual, tactile), other] Thought Processes: [ concrete, circumstantial, tangential, other] Concentration/Attention Span: [impaired] [Per observation and interview with the patient] Recent Memory: [ impaired] [0 out of 3 in 3 minutes] Remote Memory: [ impaired] [past events, as related history] Intelligence: [below average] [based on history, based on vocabulary, syntax, grammar, and content] Judgement: [ fair] [per patient's behavior/history of present illness] Insight: [ fair] [understanding severity of illness/history of present illness] Admitting Diagnosis: [Bipolar disorder in acute chris and acute psychosis] Current Visit: Yes Status: Acute Priority: Low Hospital Course: Plan of Care: [admit involuntary due to no comprehension to Tyl[facility] Batista. He will be evaluated by medicine, psychiatry, nursing staff, social work and occupational evaluation for a biopsychosocial treatment to be integrated into a calvo milieu therapeutic environment. She'll remain on the Depakote and will start with Latuda -20 mg with meal and raise Cogentin 1 mg twice a day. 02/13/2019: She remains on 15 minute checks for safety on the unit and the usual protocol for the mental health unit. She was changed to Latuda 40 mg in the morning and she will be given 20 mg before dinner in the afternoon. Her Depakote level is 47 well within normal now and will add the additional Latuda due to the fact that he still has a depressed psychotic. 02/14/2019:she remains of 15 minutes checks. She continues to take Latuda 40/20. Depakote 500 mg and Cogentin, 02/17/2019: she remains of 15 minutes checks.Will change Latuda to 60 mg to dinner time. She is less psychotic and avoid caffeine. 02/18/2019: She remains on 15 minute checks for safety and usual protocol the mental health unit. She will take her change in Latuda today 60 mg at dinnertime. We'll also increase her Depakote to 750 mg extended release at bedtime and obtain a blood level tomorrow. 02/19/2019 she remains on 15 minute checks. Has been no adverse consequences changing Latuda to 60 mg at dinnertime. Her Depakote and the 7 and 50 mg at bedtime as well. 02/20/2019: She remains on 15 minute checks usual protocol per the unit. She has no adverse consequences to Latuda 60 mg at dinnertime. She remains on Cogentin 2 mg by mouth twice a day. She is also on Depakote 750 mg extended release at bedtime. Anticipate discharge tomorrow on 02/21/2019 Mental status examination time of discharge The patient presents alert, pleasant, and cooperative. There calmly seated without any agitated behavior. [she] reports that [her] mood is good. Affect is congruent and euthymic. [she] deny having any suicidal or homicidal ideation intent or plan. [she] denies any auditory or visual hallucinations. There is no evidence of any delusional thought content. [her] thought process is linear and goal-directed. [her] speech is fluent and nonpressured. [her] memory and concentration is grossly intact for the purposes of this session. Her medications were printed off so she can take them with her. Patient Condition at Discharge: Stable Plan - Discharge Summary Discharge Rx Participant: No New Discharge Prescriptions: New Benztropine Mesylate [Cogentin] 2 mg PO BID 30 Days #60 tab Divalproex ER [Depakote ER] 750 mg PO 2100 30 Days #90 tab.er.24h Lurasidone [Latuda] 60 mg PO 1700 30 Days #90 tab Continue Psyllium Husk 100% [Metamucil Packet] 6 gm PO BID packet Multivitamins, Thera [Multivitamin (formulary)] 1 tab PO DAILY@1200 Discontinued Benztropine Mesylate [Cogentin] 1 mg PO HS 30 Days #30 tab fluPHENAZine [Prolixin] 10 mg PO HS@2100 Methocarbamol [Robaxin-750] 750 - 1,500 mg PO TID PRN PRN Reason: pain Divalproex ER [Depakote ER] 500 mg PO HS@2100 Discharge Medication List Psyllium Husk 100% [Metamucil Packet] 6 gm PO BID packet 01/24/19 [Rx] Multivitamins, Thera [Multivitamin (formulary)] 1 tab PO DAILY@1200 02/10/19 [History] Benztropine Mesylate [Cogentin] 2 mg PO BID 30 Days #60 tab 02/20/19 [Rx] Divalproex ER [Depakote ER] 750 mg PO 2100 30 Days #90 tab.er.24h 02/20/19 [Rx] Lurasidone [Latuda] 60 mg PO 1700 30 Days #90 tab 02/20/19 [Rx] Follow up Appointment(s)/Referral(s): Neeraj Lacy MD [Primary Care Provider] - 1-2 days Patient Instructions/Handouts: Bipolar Disorder (DC), Depression (DC), Psychotic Disorder (DC), Suicide Prevention (DC) Activity/Diet/Wound Care/Special Instructions: Activity and diet as tolerated. No guns or weapons in the home. No drugs or alcohol not prescribed by physician. Take all medications as prescribed. Attend all follow up appointments as scheduled. If in need of medication refills, please go to your primary care physician, or to your out patient psychiatric provider. If in crisis, please call , or go to the nearest ER. Discharge Disposition: HOME SELF-CARE
[2019-02-20] MEDS: LURASIDONE 20 MG TAB PO SCH (16:50)
[2019-02-20] MEDS: DIVALPROEX ER 250 MG TAB.ER.24H PO SCH (21:06)
[2019-02-21 07:13] VITALS: BP 100/62; PULSE 75; RESP 14; TEMP 98.2
[2019-02-21] MEDS: BENZTROPINE MESYLATE 1 MG TAB PO SCH (08:40)
[2019-02-21] MEDS: PSYLLIUM HUSK 100% 6 GM PACKET PO SCH (08:40)
[2019-02-21] MEDS: MAGNESIUM OXIDE 400 MG TAB PO SCH (08:40)
[2019-02-21] MEDS: MULTIVITAMINS, THERA 1 EACH TAB PO SCH (12:21)
== END 2019-02-21 14:28 | disposition home or self-care (01) | DRG 885 ==
LOC: EC 11:19 → 3MHU 14:30
PROVIDERS: ADMIT Psychiatry & Neurology Psychiatry; ATTEND Psychiatry & Neurology Psychiatry
DX: F31.2 Bipolar disorder, current episode manic severe with psychotic features (principal); M19.90 Unspecified osteoarthritis, unspecified site; F41.9 Anxiety disorder, unspecified; Z79.899 Other long term (current) drug therapy; Z88.2 Allergy status to sulfonamides; Z88.5 Allergy status to narcotic agent; Z88.6 Allergy status to analgesic agent; Z88.8 Allergy status to other drugs, medicaments and biological substances; Z87.891 Personal history of nicotine dependence; Z91.19 Patient's noncompliance with other medical treatment and regimen
CPT/HCPCS: 80053; 80061; 80164; 80165; 80306; 80307; 80377; 81001; 81025; 82075; 83036; 83735; 84146; 84443; 85025; 86141; 99284

== ENCOUNTER 2021-04-11 14:26 | Inpatient (IN) | payer OTHER, MEDICARE ==
--- NOTE | 2021-04-11 15:05 | ED ---
General Adult HPI - General Stated complaint: Mental health Time Seen by Provider: 04/11/21 14:33 Source: patient, EMS, RN notes reviewed Mode of arrival: EMS Limitations: altered mental status - History of Present Illness Initial comments: 46-year-old female presented from via EMS for psychiatric evaluation. Patient reportedly has been having bizarre behavior, not taking her medications. Patient is not forthcoming about her symptoms she has some underlying confusion. Patient denies any physical complaints denies chest pain shortness breath headache dizziness blurred vision abdominal pain. She denies taking any illicit drug use no alcohol abuse has been suicidal or homicidal - Related Data Home Medications Medication Instructions Recorded Confirmed Hydroxychloroquine Sulfate 200 mg PO Q48H 04/11/21 04/11/21 [Plaquenil] Hydroxychloroquine Sulfate 400 mg PO Q48H 04/11/21 04/11/21 [Plaquenil] Ibuprofen [Motrin] 600 mg PO Q6H PRN 04/11/21 04/11/21 Lurasidone [Latuda] 40 mg PO DAILY 04/11/21 04/11/21 Nitrofurantoin Macrocrystal 100 mg PO Q12H 04/11/21 04/11/21 [Nitrofurantoin] Ondansetron HCl [Zofran] 4 mg PO Q8H PRN 04/11/21 04/11/21 lamoTRIgine [LaMICtal] 200 mg PO DAILY 04/11/21 04/11/21 predniSONE 10 mg PO DAILY 04/11/21 04/11/21 Allergies Allergy/AdvReac Type Severity Reaction Status Date / Time acetaminophen [From Vicodin] Allergy Dyspnea Verified 04/11/21 17:46 carbamazepine [From Tegretol] Allergy Rash/Hives Verified 04/11/21 17:46 hydrocodone [From Vicodin] Allergy Dyspnea Verified 04/11/21 17:46 lamotrigine [From Lamictal] Allergy Dyspnea Verified 04/11/21 17:46 Sulfa (Sulfonamide Allergy Rash/Hives Verified 04/11/21 17:46 Antibiotics) Review of Systems ROS Statement: Those systems with pertinent positive or pertinent negative responses have been documented in the HPI. ROS Other: All systems not noted in ROS Statement are negative. Past Medical History Past Medical History: Osteoarthritis (OA) History of Any Multi-Drug Resistant Organisms: None Reported Past Surgical History: No Surgical Hx Reported Past Anesthesia/Blood Transfusion Reactions: Unable to Obtain Past Psychological History: Bipolar Past Alcohol Use History: Occasional Past Drug Use History: None Reported General Exam Limitations: altered mental status General appearance: alert, in no apparent distress Head exam: Present: atraumatic, normocephalic, normal inspection Eye exam: Present: normal appearance, PERRL, EOMI. Absent: scleral icterus, conjunctival injection, periorbital swelling ENT exam: Present: normal exam, normal oropharynx, mucous membranes moist Neck exam: Present: normal inspection, full ROM. Absent: tenderness, meningismus, lymphadenopathy Respiratory exam: Present: normal lung sounds bilaterally. Absent: respiratory distress, wheezes, rales, rhonchi, stridor Cardiovascular Exam: Present: normal rhythm, tachycardia, normal heart sounds. Absent: systolic murmur, diastolic murmur, rubs, gallop, clicks GI/Abdominal exam: Present: soft, normal bowel sounds. Absent: distended, tenderness, guarding, rebound, rigid Neurological exam: Present: alert, oriented X3 Psychiatric exam: Present: anxious Skin exam: Present: warm, dry, intact, normal color. Absent: rash Course Vital Signs 04/11/21 15:05 Temperature 99.8 F H Pulse Rate 147 H Respiratory 16 Rate Blood Pressure 129/81 O2 Sat by Pulse 99 Oximetry Medical Decision Making - Medical Decision Making 46-year-old female presented for psychiatric evaluation patient found be ta chycardia 140s to 150s. Patient labs reveal leukocytosis, evidence urinary tract infection. CT is unremarkable. Patient be admitted for acute delirium, UTI and placed on IV antibiotics with consult to psychiatric services. - Lab Data Result diagrams: 04/11/21 15:27 04/11/21 15:27 Lab Results 04/11/21 04/11/21 04/11/21 Range/Units 15:27 15:27 15:27 WBC 19.1 H (3.8-10.6) k/uL RBC 4.05 (3.80-5.40) m/uL Hgb 12.4 (11.4-16.0) gm/dL Hct 36.6 (34.0-46.0) % MCV 90.2 (80.0-100.0) fL MCH 30.7 (25.0-35.0) pg MCHC 34.0 (31.0-37.0) g/dL RDW 12.9 (11.5-15.5) % Plt Count 272 (150-450) k/uL MPV 7.7 Neutrophils % 89 % Lymphocytes % 4 % Monocytes % 5 % Eosinophils % 0 % Basophils % 0 % Neutrophils # 17.0 H (1.3-7.7) k/uL Lymphocytes # 0.8 L (1.0-4.8) k/uL Monocytes # 0.9 (0-1.0) k/uL Eosinophils # 0.1 (0-0.7) k/uL Basophils # 0.0 (0-0.2) k/uL PT 11.3 (9.0-12.0) sec INR 1.1 (<1.2) APTT 24.4 (22.0-30.0) sec Sodium (137-145) mmol/L Potassium (3.5-5.1) mmol/L Chloride (98-107) mmol/L Carbon Dioxide (22-30) mmol/L Anion Gap mmol/L BUN (7-17) mg/dL Creatinine (0.52-1.04) mg/dL Est GFR (CKD-EPI)AfAm (>60 ml/min/1.73 sqM) Est GFR (CKD-EPI)NonAf (>60 ml/min/1.73 sqM) Glucose (74-99) mg/dL Calcium (8.4-10.2) mg/dL Magnesium (1.6-2.3) mg/dL Total Bilirubin (0.2-1.3) mg/dL AST (14-36) U/L ALT (4-34) U/L Alkaline Phosphatase (38-126) U/L Troponin I (0.000-0.034) ng/mL Total Protein (6.3-8.2) g/dL Albumin (3.5-5.0) g/dL TSH (0.465-4.680) mIU/L Urine Color Yellow Urine Appearance Turbid H (Clear) Urine pH 6.0 (5.0-8.0) Ur Specific [place] 1.012 (1.001-1.035) Urine Protein 2+ H (Negative) Urine Glucose (UA) 4+ H (Negative) Urine Ketones Negative (Negative) Urine Blood Large H (Negative) Urine Nitrite Negative (Negative) Urine Bilirubin Negative (Negative) Urine Urobilinogen <2.0 (<2.0) mg/dL Ur Leukocyte Esterase Large H (Negative) Urine RBC 40 H (0-5) /hpf Urine WBC >182 H (0-5) /hpf Urine WBC Clumps Many H (None) /hpf Ur Squamous Epith Cells 6 H (0-4) /hpf Urine Bacteria Many H (None) /hpf Urine Yeast (Budding) Rare H (None) /hpf Urine Opiates Screen Not Detected (NotDetected) Ur Oxycodone Screen Not Detected (NotDetected) Urine Methadone Screen Not Detected (NotDetected) Ur Propoxyphene Screen Not Detected (NotDetected) Ur Barbiturates Screen Not Detected (NotDetected) U Tricyclic Antidepress Not Detected (NotDetected) Ur Phencyclidine Scrn Not Detected (NotDetected) Ur Amphetamines Screen Not Detected (NotDetected) U Methamphetamines Scrn Not Detected (NotDetected) U Benzodiazepines Scrn Not Detected (NotDetected) Urine Cocaine Screen Not Detected (NotDetected) U Marijuana (THC) Screen Detected H (NotDetected) 04/11/21 04/11/21 Range/Units 15:27 15:27 WBC (3.8-10.6) k/uL RBC (3.80-5.40) m/uL Hgb (11.4-16.0) gm/dL Hct (34.0-46.0) % MCV (80.0-100.0) fL MCH (25.0-35.0) pg MCHC (31.0-37.0) g/dL RDW (11.5-15.5) % Plt Count (150-450) k/uL MPV Neutrophils % % Lymphocytes % % Monocytes % % Eosinophils % % Basophils % % Neutrophils # (1.3-7.7) k/uL Lymphocytes # (1.0-4.8) k/uL Monocytes # (0-1.0) k/uL Eosinophils # (0-0.7) k/uL Basophils # (0-0.2) k/uL PT (9.0-12.0) sec INR (<1.2) APTT (22.0-30.0) sec Sodium 131 L (137-145) mmol/L Potassium 4.0 (3.5-5.1) mmol/L Chloride 96 L (98-107) mmol/L Carbon Dioxide 21 L (22-30) mmol/L Anion Gap 14 mmol/L BUN 7 (7-17) mg/dL Creatinine 0.72 (0.52-1.04) mg/dL Est GFR (CKD-EPI)AfAm >90 (>60 ml/min/1.73 sqM) Est GFR (CKD-EPI)NonAf >90 (>60 ml/min/1.73 sqM) Glucose 279 H (74-99) mg/dL Calcium 8.5 (8.4-10.2) mg/dL Magnesium 2.2 (1.6-2.3) mg/dL Total Bilirubin 0.4 (0.2-1.3) mg/dL AST 28 (14-36) U/L ALT 28 (4-34) U/L Alkaline Phosphatase 110 (38-126) U/L Troponin I 0.023 (0.000-0.034) ng/mL Total Protein 6.3 (6.3-8.2) g/dL Albumin 3.6 (3.5-5.0) g/dL TSH 1.360 (0.465-4.680) mIU/L Urine Color Urine Appearance (Clear) Urine pH (5.0-8.0) Ur Specific [place] (1.001-1.035) Urine Protein (Negative) Urine Glucose (UA) (Negative) Urine Ketones (Negative) Urine Blood (Negative) Urine Nitrite (Negative) Urine Bilirubin (Negative) Urine Urobilinogen (<2.0) mg/dL Ur Leukocyte Esterase (Negative) Urine RBC (0-5) /hpf Urine WBC (0-5) /hpf Urine WBC Clumps (None) /hpf Ur Squamous Epith Cells (0-4) /hpf Urine Bacteria (None) /hpf Urine Yeast (Budding) (None) /hpf Urine Opiates Screen (NotDetected) Ur Oxycodone Screen (NotDetected) Urine Methadone Screen (NotDetected) Ur Propoxyphene Screen (NotDetected) Ur Barbiturates Screen (NotDetected) U Tricyclic Antidepress (NotDetected) Ur Phencyclidine Scrn (NotDetected) Ur Amphetamines Screen (NotDetected) U Methamphetamines Scrn (NotDetected) U Benzodiazepines Scrn (NotDetected) Urine Cocaine Screen (NotDetected) U Marijuana (THC) Screen (NotDetected) Disposition Clinical Impression: UTI (urinary tract infection), Acute delirium, Tachycardia Disposition: ADMITTED IP TO THIS HOSP Condition: Fair Referrals: None,Stated [Primary Care Provider] - 1-2 days
[2021-04-11] MEDS ORDERED: IBUPROFEN 600 MG TAB PO STA (15:29)
[2021-04-11] MEDS ORDERED: SODIUM CHLORIDE 0.9% 500 ML 500 ML IV ONE (15:29)
[2021-04-11] MEDS ORDERED: SODIUM CHLORIDE 0.9% 1,000 ML IV ONE (15:29)
[2021-04-11 15:50] LABS: Basophils % (A) 0 %; Eosinophils # (A) 0.1 k/uL (0-0.7); Eosinophils % (A) 0 %; HCT 36.6 % (34.0-46.0); HGB 12.4 gm/dL (11.4-16.0); Lymphocytes # (A) 0.8 k/uL (1.0-4.8); Lymphocytes % (A) 4 %; MCH 30.7 pg (25.0-35.0); MCV 90.2 fL (80.0-100.0); Mean Platelet Volume 7.7; Monocytes # (A) 0.9 k/uL (0-1.0); Monocytes % (A) 5 %; Neutrophils % (A) 89 %; Platelet Count 272 k/uL (150-450); RBC 4.05 m/uL (3.80-5.40); RDW 12.9 % (11.5-15.5); WBC 19.1 k/uL (3.8-10.6)
[2021-04-11 16:05] LABS: ALT 28 U/L (4-34); AST 28 U/L (14-36); African American GFR (CKD) >90 (>60 ml/min/1.73 sqM); Albumin 3.6 g/dL (3.5-5.0); Alkaline Phosphatase 110 U/L (38-126); Anion Gap 14 mmol/L; Blood Urea Nitrogen 7 mg/dL (7-17); Calcium 8.5 mg/dL (8.4-10.2); Carbon Dioxide 21 mmol/L (22-30); Chloride 96 mmol/L (98-107); Glucose 279 mg/dL (74-99); Magnesium 2.2 mg/dL (1.6-2.3); Non-African American GFR(CKD) >90 (>60 ml/min/1.73 sqM); Sodium 131 mmol/L (137-145); Total Bilirubin 0.4 mg/dL (0.2-1.3); Total Protein 6.3 g/dL (6.3-8.2)
[2021-04-11 16:08] LABS: Appearance,Urine Turbid (Clear); Bacteria,Urine Many /hpf; Bilirubin,Urine Negative (Negative); Blood,Urine Large (Negative); Budding Yeast,Urine Rare /hpf; Color,Urine Yellow; Glucose,Urine (UA) 4+ (Negative); Ketones,Urine Negative (Negative); Leukocyte Esterase,Urine Large (Negative); Nitrite,Urine Negative (Negative); Protein,Urine 2+ (Negative); RBC,Urine 40 /hpf (0-5); Specific Gravity,Urine 1.012 (1.001-1.035); Squamous Epithelial Cell,Urine 6 /hpf (0-4); Urobilinogen,Urine <2.0 mg/dL (<2.0); WBC,Urine >182 /hpf (0-5)
--- NOTE | 2021-04-11 16:12 | XR ---
EXAMINATION TYPE: XR chest 2V DATE OF EXAM: 04/11/2021 COMPARISON: NONE HISTORY: Chest pain TECHNIQUE: Frontal and lateral views of the chest are obtained. FINDINGS: There is no focal air space opacity. No evidence for pneumothorax. No pleural effusion. The cardiac silhouette size is within normal limits. The osseous structures are grossly intact. IMPRESSION: 1. No acute cardiopulmonary process.
[2021-04-11 16:17] LABS: INR 1.1 (<1.2); Partial Thromboplastin Time 24.4 sec (22.0-30.0); Prothrombin Time 11.3 sec (9.0-12.0)
[2021-04-11 16:54] LABS: Amphetamine Screen,Urine Not Detected (NotDetected); Barbiturate Screen,Urine Not Detected (NotDetected); Benzodiazepines Screen,Urine Not Detected (NotDetected); Cocaine Screen,Urine Not Detected (NotDetected); Methadone Screen, Urine Not Detected (NotDetected); Opiate Screen,Urine Not Detected (NotDetected); Oxycodone Screen, Urine Not Detected (NotDetected); Phencyclidine Screen,Urine Not Detected (NotDetected); Tricyclic Antidepressant,Urine Not Detected (NotDetected); Urn Cannabinoid Scrn Detected (NotDetected)
[2021-04-11] MEDS: ACETAMINOPHEN TAB 500 MG TAB PO STA ×2 (17:35→17:38)
--- NOTE | 2021-04-11 18:21 | CT ---
EXAMINATION TYPE: CT brain wo con DATE OF EXAM: 04/11/2021 COMPARISON: None HISTORY: Altered mental status. CT DLP: 1100.4 mGycm Automated exposure control for dose reduction was used. Exam performed with no contrast. Ventricles have normal size. There is no mass effect nor midline shift. There is no sign of intracran ial hemorrhage. The calvarium is intact. There is some beam hardening artifact in the posterior fossa . IMPRESSION: No acute intracranial abnormality.
[2021-04-11] MEDS ORDERED: NALOXONE 0.4 MG/ML 1 ML VIAL IV PRN (18:25)
[2021-04-11] MEDS ORDERED: IBUPROFEN 400 MG TAB PO PRN (18:25)
[2021-04-11] MEDS ORDERED: LORazepam 0.5 MG TAB PO PRN (18:57)
[2021-04-11] MEDS ORDERED: TEMAZEPAM 15 MG CAP PO PRN (18:57)
[2021-04-11] MEDS ORDERED: LORazepam 2 MG/ML INJ IV STA (19:30)
--- NOTE | 2021-04-11 19:57 | HP ---
HISTORY AND PHYSICAL CHIEF COMPLAINT: Change in mental status. HISTORY OF PRESENT ILLNESS: This 46-year-old woman with a past history of DJD, history of bipolar and psychiatric issues, was apparently diagnosed to have UTI recently. Patient was given outpatient antibiotics but apparently patient continues to have symptoms such as confusion. The patient is apparently not taking any anti-psychiatric medications. She also has some nausea, vomiting and fever. Patient became progressively confused, was talking to herself, and the patient was taken to [facility] and was admitted for further evaluation and treatment. Currently the patient is unable to provide any coherent history. Most of the history is taken from my discussion with staff as well as discussion with ER physician and review of the chart at this time. There is no history of trauma. PAST MEDICAL HISTORY: Of psychiatric issues as mentioned, bipolar, history of DJD. MEDICATIONS: Prior to admission include home medications are prednisone, Zofran, Motrin, Latuda, Lamictal, Plaquenil. ALLERGIES: Vicodin, Lamictal, antibiotics. SOCIAL HISTORY: Per chart, history of smoking. The patient uses CBD oil. FAMILY HISTORY/SOCIAL HISTORY/REVIEW OF SYSTEMS: Otherwise could not be taken. PHYSICAL EXAMINATION: Patient is conscious but nonverbal, appears to be confused. Pulse is 147, blood pressure 110/81, respirations 16, temperature 99.8, pulse ox 98% on room air. HEENT: Conjunctivae normal. Oral mucosa moist. NECK: No jugular venous distention. CARDIOVASCULAR SYSTEM: S1 and S2. LUNGS: Breath sounds diminished in the bases. No rhonchi. No crackles. ABDOMEN: Soft, obese, nontender. No mass palpable. LEGS: No edema no swelling. NERVOUS SYSTEM: Higher functions as mentioned earlier. Moves all 4 limbs. Unable to provide complete exam. SKIN: No ulcer or rash. JOINTS: No active deforming arthropathy. LYMPHATIC: No lymph nodes palpable in the neck, axillae or groin. LABS: WBC 19.2, sodium is 130, potassium 4. Other labs are noted. ASSESSMENT: 1. Acute urinary tract infection with sepsis present on admission. 2. Change in mental status acute metabolic encephalopathy possibly secondary to sepsis; rule out acute psychosis. 3. Increased WBC. 4. Hyponatremia. 5. Diabetes mellitus type 2, glucose is 279, newly diagnosed. 6. DJD. 7. History of bipolar. 8. History of nicotine dependence. 9. FULL CODE. RECOMMENDATIONS AND DISCUSSION: This 46-year-old woman who presented with multiple complex medical issues, we will monitor the patient closely. We will initiate broad-spectrum IV antibiotics. Obtain cultures. Psychiatric consultation. Symptomatic treatment. Otherwise, prognosis guarded because of multiple complex medical issues. Further recommendations to follow. MMODL / IJN: [id number] /
[2021-04-11] MEDS: HEPARIN SODIUM,PORCINE/PF 5,000 UNIT/0.5 ML SYRINGE SQ SCH (20:56)
[2021-04-11] MEDS: HYDROXYCHLOROQUINE SULFATE 200 MG TAB PO SCH (21:22)
[2021-04-12] MEDS: METOPROLOL TARTRATE 25 MG TAB PO SCH ×3 (00:15→19:49)
[2021-04-12] MEDS: DEXTROSE 5%-0.45% NACL 1,000 ML IV SCH ×2 (00:35→12:09)
[2021-04-12 06:14] LABS: Basophils % (A) 0 %; Eosinophils # (A) 0.1 k/uL (0-0.7); Eosinophils % (A) 0 %; HCT 33.3 % (34.0-46.0); HGB 11.2 gm/dL (11.4-16.0); Lymphocytes # (A) 1.1 k/uL (1.0-4.8); Lymphocytes % (A) 7 %; MCH 30.7 pg (25.0-35.0); MCHC 33.7 g/dL (31.0-37.0); MCV 91.2 fL (80.0-100.0); Mean Platelet Volume 8.4; Monocytes # (A) 0.9 k/uL (0-1.0); Monocytes % (A) 5 %; Neutrophils # (A) 15.1 k/uL (1.3-7.7); Neutrophils % (A) 87 %; Platelet Count 257 k/uL (150-450); RBC 3.65 m/uL (3.80-5.40); RDW 13.1 % (11.5-15.5); WBC 17.5 k/uL (3.8-10.6)
[2021-04-12 07:18] LABS: Glucose,Whole Blood 159 mg/dL (75-99)
--- NOTE | 2021-04-12 08:10 | P.PN ---
Subjective Principal diagnosis: Altered mental status and UTI This is a 46-year-old white female essentially admitted for altered mental status. UTI with positive blood culture was noted. We will start gentamicin in addition to the Rocephin. No significant fever or chills. The patient states significant trauma at the home with she the supposition that her has been drinking excessively. The patient also states that she is been trying to go to plan based diet and that could also be a reason why she has been somewhat unhealthy. Objective - Vital Signs Vital signs: Vital Signs Temp 98.5 F 04/12/21 05:00 Pulse 119 H 04/12/21 05:00 Resp 18 04/12/21 05:00 BP 117/80 04/12/21 05:00 Pulse Ox 98 04/12/21 05:00 Intake & Output 04/11/21 04/12/21 04/12/21 18:59 06:59 18:59 Intake Total 1100 Balance 1100 Weight 68.039 kg 68.039 kg Intake: Intake, IV Titration 600 Amount Dextrose 5%-0.45% NaCl 1, 600 000 ml @ 100 mls/hr IV . Q10H [facility] Rx#:[id number] Oral 500 Other: Voiding Method Diaper Incontinent # Voids 2 # Bowel Movements 1 - Constitutional General appearance: Present: average body habitus - EENT Eyes: Absent: abnormal pupil - Neck Neck: Absent: lymphadenopathy - Respiratory Respiratory: bilateral: CTA - Cardiovascular Rhythm: regular Heart sounds: normal: S1, S2 Abnormal Heart Sounds: Absent: S3 Gallop - Gastrointestinal General gastrointestinal: Present: soft. Absent: tenderness - Integumentary Integumentary: Absent: cellulitis - Labs CBC & Chem 7: 04/12/21 05:25 04/11/21 15:27 Labs: Abnormal Lab Results - Last 24 Hours (Table) 04/11/21 04/11/21 04/11/21 Range/Units 15:27 15:27 15:27 WBC 19.1 H (3.8-10.6) k/uL RBC (3.80-5.40) m/uL Hgb (11.4-16.0) gm/dL Hct (34.0-46.0) % Neutrophils # 17.0 H (1.3-7.7) k/uL Lymphocytes # 0.8 L (1.0-4.8) k/uL Sodium 131 L (137-145) mmol/L Chloride 96 L (98-107) mmol/L Carbon Dioxide 21 L (22-30) mmol/L Glucose 279 H (74-99) mg/dL POC Glucose (mg/dL) (75-99) mg/dL Urine Appearance Turbid H (Clear) Urine Protein 2+ H (Negative) Urine Glucose (UA) 4+ H (Negative) Urine Blood Large H (Negative) Ur Leukocyte Esterase Large H (Negative) Urine RBC 40 H (0-5) /hpf Urine WBC >182 H (0-5) /hpf Urine WBC Clumps Many H (None) /hpf Ur Squamous Epith Cells 6 H (0-4) /hpf Urine Bacteria Many H (None) /hpf Urine Yeast (Budding) Rare H (None) /hpf U Marijuana (THC) Screen Detected H (NotDetected) 04/12/21 04/12/21 Range/Units 05:25 07:16 WBC 17.5 H (3.8-10.6) k/uL RBC 3.65 L (3.80-5.40) m/uL Hgb 11.2 L (11.4-16.0) gm/dL Hct 33.3 L (34.0-46.0) % Neutrophils # 15.1 H (1.3-7.7) k/uL Lymphocytes # (1.0-4.8) k/uL Sodium (137-145) mmol/L Chloride (98-107) mmol/L Carbon Dioxide (22-30) mmol/L Glucose (74-99) mg/dL POC Glucose (mg/dL) 159 H (75-99) mg/dL Urine Appearance (Clear) Urine Protein (Negative) Urine Glucose (UA) (Negative) Urine Blood (Negative) Ur Leukocyte Esterase (Negative) Urine RBC (0-5) /hpf Urine WBC (0-5) /hpf Urine WBC Clumps (None) /hpf Ur Squamous Epith Cells (0-4) /hpf Urine Bacteria (None) /hpf Urine Yeast (Budding) (None) /hpf U Marijuana (THC) Screen (NotDetected) Microbiology - Last 24 Hours (Table) 04/11/21 17:22 Blood Culture - Final Blood 04/11/21 15:27 Urine Culture - Preliminary Urine,Voided Assessment and Plan (1) Sepsis Current Visit: Yes Status: Acute Code(s): A41.9 - SEPSIS, UNSPECIFIED ORGANISM SNOMED Code(s): 18808296 (2) UTI (urinary tract infection) Current Visit: Yes Status: Acute Code(s): N39.0 - URINARY TRACT INFECTION, SITE NOT SPECIFIED SNOMED Code(s): 24709666 Plan: Advance diet and start gentamicin. Check appropriate a.m. labs. Anticipate discharge once cultures and sensitivity is elucidated and patient is on appropriate trajectory of recovery.
[2021-04-12] MEDS ORDERED: GENTAMICIN PER PHARMACY MISCELLANE SCH (08:15)
[2021-04-12] MEDS: HEPARIN SODIUM,PORCINE/PF 5,000 UNIT/0.5 ML SYRINGE SQ SCH ×2 (08:23→19:47)
[2021-04-12] MEDS: lamoTRIgine 100 MG TAB PO SCH (08:23)
[2021-04-12] MEDS: LURASIDONE 40 MG TAB PO SCH (08:24)
[2021-04-12] MEDS ORDERED: GENTAMICIN 300 MG in SODIUM CHLORIDE 0.9% 100 ML IVPB SCH (10:00)
[2021-04-12 10:14] LABS: African American GFR (CKD) 103.2 (60.0-200.0); Anion Gap 10.2 mmol/L (4.00-12.00); BUN/Creat Ratio 11.25 Ratio (12.00-20.00); Calcium 7.3 mg/dL (8.7-10.3); Carbon Dioxide 21.8 mmol/L (21.6-31.8); Potassium 4.1 mmol/L (3.5-5.5)
[2021-04-12] MEDS: FOLIC ACID 1 MG TAB PO SCH (12:08)
[2021-04-12] MEDS: MULTIVITAMINS, THERA 1 EACH TAB PO SCH (12:08)
[2021-04-12] MEDS: THIAMINE 100 MG TAB PO SCH (12:08)
[2021-04-12] MEDS: ACETAMINOPHEN TAB 325 MG TAB PO PRN ×2 (12:25→19:47)
[2021-04-12] MEDS ORDERED: MELATONIN 5 MG TABLET PO PRN (12:46)
--- NOTE | 2021-04-12 12:46 | P.CN ---
Psychiatric Consult - . Consult date: 04/12/21 Consult:: 04/12/21 11:07 IDENTIFYING DATA: This patient is a 46-year-old female with history of bipolar disorder, lives with her in a house, has 1 child. REASON FOR REFERRAL: Psychiatry was consulted for "acute delirium, bipolar" HISTORY OF PRESENT ILLNESS: The patient presented to the hospital with bizarre behavior and not taking her medications. Apparently patient was fairly confusing the ER. Patient was found to have a urinalysis which is positive for a UTI and also had leukocytosis. Patient was admitted for delirium and treatment of her UTI. Her UDS was positive for THC. Patient's nurse claims that patient has been a little bit confused and has rapid speech. Patient was seen at the bedside and appeared to be somewhat tired however was awoken by comic writer. She claims that she is doing well overall and better than when she came in to the hospital. She states that she is currently on antibiotics for her urinary tract infection. She states that she has a history of bipolar disorder diagnosed at the age of 25 and claims that "I've been dealing with this much whole life". She states that she is not having any depression or anxiety at this time. She is denying any flight of ideas or racing thoughts. She states that her sleep is been fairly fragmented in the hospital due to different sounds however at home she has been sleeping fairly. She is denying any paranoia or any other delusions. At this time patient denies any suicidal or homical ideations, intent or plan. Patient denies any auditory, visual hallucinations and denies any paranoia or delusions. Patients admits to using alcohol occasionally and quit cigarettes. PAST PSYCHIATRIC HISTORY: Patient has a a history of bipolar disorder type I. Patient was previously on latuda, Depakote, Cogentin, Lamictal. Patient has had 2 psychiatric admissions in the past according to EMR with her last admission in January 2019. She claims that she follows up with a PA from the for her psychiatric outpatient follow-up. Patient denies any history of suicide attempts in the past. PAST MEDICAL HISTORY: OA ALLERGIES: as per EMR. CHEMICAL DEPENDENCY HISTORY: as per HPI. FAMILY PSYCHIATRIC/SUBSTANCE USE HISTORY: denies SOCIAL HISTORY: Patient was born and raised in [place], [place]. 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 She states that she has 1 child and is currently unemployed and collecting Social Security disability. She denies any legal problems. She claims that she is currently and lives with her in the house. MENTAL STATUS EXAM: General Appearance: Patient appears to be stated age is tired, pleasant, and cooperative. Patient appears to have fair hygiene and grooming wearing hospital gown with fair eye contact. Behavior: Patient is calmly lying in bed without any agitated behavior. Speech: Patient's speech is fluent and nonpressured. Mood/Affect: Patient reports their mood is "fine", affect is congruent Suicidality/Homicidality: Patient denies having any suicidal or homicidal ideation intent or plan. Perceptions: Patient denies any visual hallucinations and denies any auditory hallucinations Though content/process: There is no evidence of any delusional thought content and thought process is linear and goal-directed. Memory and concentration: AOX3, grossly intact for the purposes of this session. Can spell "WORLD" backwards Judgment and insight: fair IMPRESSIONS: Delirium likely secondary to urinary tract infection, resolving History of bipolar disorder type 1 PLAN: -At this time patient DOES NOT meet criteria for inpatient psychiatric admission. -Delirium precautions recommended with patient including - avoiding use of narcotics and SECTIONIZER sedatives, limit anticholinergic medications when possible, frequent re-orientation, minimize use of restraints, open window shades during the day and close them at night -Would recommend the following medication changes/additions: Discontinuing all benzodiazepines as this will further exacerbate patient's confusion/delirium. Can continue with Lamictal 200 mg daily for mood stabilization, Latuda 40mg daily for mood stabilization. -Patient follows up with a PA from for psychiatric care and will need to reschedule her appointment within the next 2 weeks upon discharge -Communicated plan to patient's nurse -Psychiatry will sign off at this time -Please contact with any questions. 04/12/21 12:39
[2021-04-12] MEDS ORDERED: GENTAMICIN TROUGH DUE 1 EACH MISC MISCELLANE ONE (19:00)
[2021-04-12] MEDS ORDERED: HYDROXYCHLOROQUINE SULFATE 200 MG TAB PO SCH (21:00)
[2021-04-13] MEDS: DEXTROSE 5%-0.45% NACL 1,000 ML IV SCH ×3 (02:11→17:22)
[2021-04-13 05:38] LABS: HCT 29.8 % (34.0-46.0); HGB 10.2 gm/dL (11.4-16.0); MCH 31.3 pg (25.0-35.0); MCHC 34.1 g/dL (31.0-37.0); MCV 91.9 fL (80.0-100.0); Mean Platelet Volume 7.9; Platelet Count 239 k/uL (150-450); RBC 3.24 m/uL (3.80-5.40); RDW 13.3 % (11.5-15.5); WBC 12.1 k/uL (3.8-10.6)
[2021-04-13 06:34] LABS: ALT 40 U/L (4-34); AST 47 U/L (14-36); African American GFR (CKD) >90 (>60 ml/min/1.73 sqM); Albumin 2.7 g/dL (3.5-5.0); Albumin/Globulin Ratio 1.1; Alkaline Phosphatase 142 U/L (38-126); Anion Gap 7 mmol/L; Blood Urea Nitrogen 8 mg/dL (7-17); Carbon Dioxide 23 mmol/L (22-30); Chloride 102 mmol/L (98-107); Globulin 2.5 g/dL; Glucose 144 mg/dL (74-99); Non-African American GFR(CKD) >90 (>60 ml/min/1.73 sqM); Potassium 3.8 mmol/L (3.5-5.1); Sodium 132 mmol/L (137-145); Total Bilirubin 0.3 mg/dL (0.2-1.3); Total Protein 5.2 g/dL (6.3-8.2)
[2021-04-13] MEDS: ACETAMINOPHEN TAB 325 MG TAB PO PRN (07:11)
--- NOTE | 2021-04-13 08:18 | P.PN ---
Subjective Principal diagnosis: Altered mental status and UTI This is a 46-year-old white female essentially admitted for altered mental status. UTI with positive blood culture was noted. We will start gentamicin in addition to the Rocephin. No significant fever or chills. The patient states significant trauma at the home with she the supposition that her has been drinking excessively. The patient also states that she is been trying to go to plan based diet and that could also be a reason why she has been somewhat unhealthy. Culture positiive for E. Coli and still with fever spike Objective - Vital Signs Vital signs: Vital Signs Temp 101.2 F H 04/13/21 07:14 Pulse 108 H 04/13/21 04:49 Resp 18 04/13/21 04:49 BP 112/75 04/13/21 04:49 Pulse Ox 96 04/13/21 04:49 Intake & Output 04/12/21 04/13/21 04/13/21 18:59 06:59 18:59 Intake Total 1470 Balance 1470 Intake: Oral 1470 Other: Voiding Method Diaper Toilet Incontinent Diaper Incontinent # Voids 2 3 # Bowel Movements 1 - Constitutional General appearance: Present: average body habitus - EENT Eyes: Absent: abnormal pupil - Neck Neck: Absent: lymphadenopathy - Respiratory Respiratory: bilateral: CTA - Cardiovascular Rhythm: regular Heart sounds: normal: S1, S2 Abnormal Heart Sounds: Absent: S3 Gallop - Gastrointestinal General gastrointestinal: Present: soft. Absent: tenderness - Neurologic Neurologic: Present: CNII-XII intact - Labs CBC & Chem 7: 04/13/21 05:14 04/13/21 05:14 Labs: Abnormal Lab Results - Last 24 Hours (Table) 04/12/21 04/13/21 04/13/21 Range/Units 05:25 05:14 05:14 WBC 12.1 H (3.8-10.6) k/uL RBC 3.24 L (3.80-5.40) m/uL Hgb 10.2 L (11.4-16.0) gm/dL Hct 29.8 L (34.0-46.0) % Sodium 133 L 132 L (135-145) mmol/L BUN/Creatinine Ratio 11.25 L (12.00-20.00) Ratio Glucose 144 H (74-99) mg/dL Calcium 7.3 L 8.0 L (8.7-10.3) mg/dL AST 47 H (14-36) U/L ALT 40 H (4-34) U/L Alkaline Phosphatase 142 H (38-126) U/L Total Protein 5.2 L (6.3-8.2) g/dL Albumin 2.7 L (3.5-5.0) g/dL Microbiology - Last 24 Hours (Table) 04/11/21 17:05 Blood Culture Gram Stain - Preliminary Blood 04/11/21 15:27 Urine Culture - Preliminary Urine,Voided Gram Neg Bacilli 04/11/21 17:22 Blood Culture Gram Stain - Preliminary Blood Blood Culture - Preliminary Escherichia coli 04/11/21 17:05 Blood Culture - Final Blood 04/11/21 17:22 Blood Culture - Final Blood Assessment and Plan (1) Sepsis Current Visit: Yes Status: Acute Code(s): A41.9 - SEPSIS, UNSPECIFIED ORGANISM SNOMED Code(s): 24807216 (2) UTI (urinary tract infection) Current Visit: Yes Status: Acute Code(s): N39.0 - URINARY TRACT INFECTION, SITE NOT SPECIFIED SNOMED Code(s): 53607648 Plan: Sensitivity positive with E. coli to ceftriaxone. Continue antibiotic treatment for the next 24-48 hours. Anticipate discharge in the next 1-2 days. Check CBC in a.m.
[2021-04-13] MEDS: HEPARIN SODIUM,PORCINE/PF 5,000 UNIT/0.5 ML SYRINGE SQ SCH ×2 (09:18→21:50)
[2021-04-13] MEDS: METOPROLOL TARTRATE 25 MG TAB PO SCH ×2 (09:18→21:51)
[2021-04-13] MEDS: LURASIDONE 40 MG TAB PO SCH (09:19)
[2021-04-13] MEDS: lamoTRIgine 100 MG TAB PO SCH (09:33)
[2021-04-13] MEDS: THIAMINE 100 MG TAB PO SCH (12:07)
[2021-04-13] MEDS: FOLIC ACID 1 MG TAB PO SCH (12:07)
[2021-04-13] MEDS: MULTIVITAMINS, THERA 1 EACH TAB PO SCH (12:07)
[2021-04-13] MEDS ORDERED: CALCIUM CARBONATE 500 MG CHEWABLE PO PRN (19:39)
[2021-04-13] MEDS: HYDROXYCHLOROQUINE SULFATE 200 MG TAB PO SCH (21:50)
[2021-04-14] MEDS: DEXTROSE 5%-0.45% NACL 1,000 ML IV SCH (03:30)
[2021-04-14 04:52] VITALS: BP 135/89; PULSE 100; RESP 16; TEMP 98.6
[2021-04-14 06:25] LABS: HCT 30.5 % (34.0-46.0); HGB 10.3 gm/dL (11.4-16.0); MCH 30.9 pg (25.0-35.0); MCHC 33.7 g/dL (31.0-37.0); Mean Platelet Volume 7.9; Platelet Count 314 k/uL (150-450); RBC 3.31 m/uL (3.80-5.40); RDW 13.4 % (11.5-15.5); WBC 10.8 k/uL (3.8-10.6)
--- NOTE | 2021-04-14 08:07 | P.DS ---
Providers Date of admission: 04/12/21 10:06 Attending physician: Neeraj Lacy Consults: 04/11/21 18:26 Consult Physician Routine Consulting Provider: Stanton Landrum Consult Reason/Comments: Acute delirium, bipolar Do you want consulting provider notified?: Already Contacted Primary care physician: Neeraj Lacy - Discharge Diagnosis(es) (1) Sepsis Current Visit: Yes Status: Acute (2) UTI (urinary tract infection) Current Visit: Yes Status: Acute Hospital Course: This is a discharge summary 46-year-old white female who is essentially minute for UTI with sepsis. Element of E. coli was elucidated from her blood and urine culture. She is placed on Rocephin for 3 days IV and did quite well. She did have fever spike 2 days prior to discharge but is not tolerating diet and voiding without difficulty. We will follow-up in about one week. Patient Condition at Discharge: Fair Plan - Discharge Summary Discharge Rx Participant: No New Discharge Prescriptions: New Amoxicillin/Potassium Clav [Augmentin 875-125 Tablet] 1 tab PO BID 10 Days #20 tab No Action Hydroxychloroquine Sulfate [Plaquenil] 400 mg PO Q48H Ibuprofen [Motrin] 600 mg PO Q6H PRN PRN Reason: Pain lamoTRIgine [LaMICtal] 200 mg PO DAILY Hydroxychloroquine Sulfate [Plaquenil] 200 mg PO Q48H Ondansetron HCl [Zofran] 4 mg PO Q8H PRN PRN Reason: Nausea And Vomiting Nitrofurantoin Macrocrystal [Nitrofurantoin] 100 mg PO Q12H Lurasidone [Latuda] 40 mg PO DAILY predniSONE 10 mg PO DAILY Discharge Medication List Hydroxychloroquine Sulfate [Plaquenil] 200 mg PO Q48H 04/11/21 [History] Hydroxychloroquine Sulfate [Plaquenil] 400 mg PO Q48H 04/11/21 [History] Ibuprofen [Motrin] 600 mg PO Q6H PRN 04/11/21 [History] Lurasidone [Latuda] 40 mg PO DAILY 04/11/21 [History] Nitrofurantoin Macrocrystal [Nitrofurantoin] 100 mg PO Q12H 04/11/21 [History] Ondansetron HCl [Zofran] 4 mg PO Q8H PRN 04/11/21 [History] lamoTRIgine [LaMICtal] 200 mg PO DAILY 04/11/21 [History] predniSONE 10 mg PO DAILY 04/11/21 [History] Amoxicillin/Potassium Clav [Augmentin 875-125 Tablet] 1 tab PO BID 10 Days #20 tab 04/14/21 [Rx] Follow up Appointment(s)/Referral(s): None,Stated [REFERRING] - 1-2 days
[2021-04-14] MEDS: HEPARIN SODIUM,PORCINE/PF 5,000 UNIT/0.5 ML SYRINGE SQ SCH (08:50)
[2021-04-14] MEDS: METOPROLOL TARTRATE 25 MG TAB PO SCH (08:51)
[2021-04-14] MEDS: LURASIDONE 40 MG TAB PO SCH (08:51)
[2021-04-14] MEDS: lamoTRIgine 100 MG TAB PO SCH (08:51)
[2021-04-14 10:48] LABS: African American GFR (CKD) 121.3 (60.0-200.0); Albumin 3.4 g/dL (3.80-4.90); Albumin/Globulin Ratio 1.55 (1.60-3.17); Anion Gap 9.8 mmol/L (4.00-12.00); BUN/Creat Ratio 11.43 Ratio (12.00-20.00); Calcium 7.9 mg/dL (8.7-10.3); Carbon Dioxide 24.2 mmol/L (21.6-31.8); Globulin 2.2 g/dL (1.6-3.3); Non-African American GFR(CKD) 104.6 (60.0-200.0); Potassium 3.7 mmol/L (3.5-5.5); Total Bilirubin 0.3 mg/dL (0.2-1.2); Total Protein 5.6 g/dL (6.2-8.2)
== END 2021-04-14 10:34 | disposition home or self-care (01) | DRG 871 ==
LOC: EC 14:26 → 5NMEDONC 18:09 → OBSVTOIN 04-12 10:06
PROVIDERS: ADMIT Family Medicine; ATTEND Family Medicine
DX: A41.51 Sepsis due to Escherichia coli [E. coli] (principal); G93.41 Metabolic encephalopathy; N39.0 Urinary tract infection, site not specified; E87.1 Hypo-osmolality and hyponatremia; E11.9 Type 2 diabetes mellitus without complications; M19.90 Unspecified osteoarthritis, unspecified site; Z87.891 Personal history of nicotine dependence; Z79.899 Other long term (current) drug therapy
CPT/HCPCS: 36415; 70450; 71046; 80048; 80053; 80306; 81001; 83605; 83735; 84443; 84484; 85025; 85027; 85610; 85730; 87040; 87077; 87086; 87186; 93005; 96361; 96365; 99285

== ENCOUNTER 2021-04-22 13:04 | Inpatient (IN) | payer OTHER, MEDICARE ==
--- NOTE | 2021-04-22 13:28 | ED ---
General Adult HPI - General Source: patient, RN notes reviewed, old records reviewed Mode of arrival: ambulatory Limitations: no limitations <Wolfgang Godinez - Last Filed: 04/22/21 13:26> <Charla Mahoney - Last Filed: 04/22/21 17:54> - General Chief complaint: Recheck/Abnormal Lab/Rx Stated complaint: infection Time Seen by Provider: 04/22/21 13:14 - History of Present Illness Initial comments: 46-year-old female who had presented for psychiatric evaluation as well as concern that she may have a persistent urinary tract infection. She was seen at this institution for UTI treated with antibiotics and discharged home. Due to significant vomiting associated with her infection she was off of her daily me dications Anacin she has been home she has been refusing to take many of her psychotic and mood stabilizing medications. I did obtain this limited history from the who is at bedside. The patient currently believe she is here to rule out sepsis. (Wolfgang Godinez) - Related Data Home Medications Medication Instructions Recorded Confirmed Hydroxychloroquine Sulfate 200 mg PO Q48H 04/11/21 04/22/21 [Plaquenil] Hydroxychloroquine Sulfate 400 mg PO Q48H 04/11/21 04/22/21 [Plaquenil] Ibuprofen [Motrin] 600 mg PO Q6H PRN 04/11/21 04/22/21 Lurasidone [Latuda] 40 mg PO DAILY 04/11/21 04/22/21 Ondansetron HCl [Zofran] 4 mg PO Q8H PRN 04/11/21 04/22/21 lamoTRIgine [LaMICtal] 200 mg PO DAILY 04/11/21 04/22/21 Mirtazapine [Remeron] 15 mg PO HS 04/22/21 04/22/21 predniSONE 7.5 mg PO DAILY 04/22/21 04/22/21 Previous Rx's Medication Instructions Recorded Amoxicillin/Potassium Clav 1 tab PO BID 10 Days #20 tab 04/14/21 [Augmentin 875-125 Tablet] Allergies Allergy/AdvReac Type Severity Reaction Status Date / Time acetaminophen [From Vicodin] Allergy Dyspnea Verified 04/22/21 15:26 carbamazepine [From Tegretol] Allergy Rash/Hives Verified 04/22/21 15:26 hydrocodone [From Vicodin] Allergy Dyspnea Verified 04/22/21 15:26 lamotrigine [From Lamictal] Allergy Dyspnea Verified 04/22/21 15:26 Sulfa (Sulfonamide Allergy Rash/Hives Verified 04/22/21 15:26 Antibiotics) Review of Systems ROS Other: All systems not noted in ROS Statement are negative. <Wlofgang Godinez - Last Filed: 04/22/21 13:26> ROS Other: All systems not noted in ROS Statement are negative. <Charla Mahoney - Last Filed: 04/22/21 17:54> ROS Statement: Those systems with pertinent positive or pertinent negative responses have been documented in the HPI. Past Medical History Past Medical History: Osteoarthritis (OA) Additional Past Medical History / Comment(s): Sepsis, Lupus History of Any Multi-Drug Resistant Organisms: None Reported Past Surgical History: No Surgical Hx Reported Past Anesthesia/Blood Transfusion Reactions: Unable to Obtain Past Psychological History: Bipolar, Depression Smoking Status: Former smoker Past Alcohol Use History: Occasional Past Drug Use History: None Reported <Wolfgang Godinez - Last Filed: 04/22/21 13:26> General Exam Limitations: no limitations General appearance: alert, anxious Head exam: Present: atraumatic, normocephalic Eye exam: Present: normal appearance, PERRL ENT exam: Present: normal exam Neck exam: Present: normal inspection. Absent: tenderness, meningismus Respiratory exam: Present: normal lung sounds bilaterally. Absent: respiratory distress, wheezes Cardiovascular Exam: Present: regular rate, normal rhythm GI/Abdominal exam: Present: soft. Absent: distended, tenderness, guarding Extremities exam: Present: normal inspection, normal capillary refill. Absent: pedal edema Neurological exam: Present: alert, altered Psychiatric exam: Present: anxious, manic Skin exam: Present: warm, dry, intact. Absent: cyanosis, diaphoretic <Wolfgang Godinez - Last Filed: 04/22/21 13:26> Course <Wolfgang Godinez - Last Filed: 04/22/21 13:26> Vital Signs 04/22/21 04/22/21 04/22/21 13:06 13:42 17:18 Temperature 97.9 F Pulse Rate 109 H 117 H Respiratory 20 22 Rate Blood Pressure 167/89 161/98 O2 Sat by Pulse 100 99 Oximetry - Reevaluation(s) Reevaluation #1: 04/22/21 1500 Patient care signed out to Dr. Mahoney at shift change awaiting EPS evaluation. (Wolfgang Godinez) Medical Decision Making - Lab Data Result diagrams: 04/22/21 13:29 04/22/21 13:29 <Charla Mahoney - Last Filed: 04/22/21 17:54> - Medical Decision Making EVS has evaluated the patient and will be admitted to 3 W. (Charla Mahoney) - Lab Data Lab Results 04/22/21 04/22/21 04/22/21 Range/Units 13:29 13:29 13:29 WBC 13.8 H (3.8-10.6) k/uL RBC 3.87 (3.80-5.40) m/uL Hgb 11.7 (11.4-16.0) gm/dL Hct 36.6 (34.0-46.0) % MCV 94.8 (80.0-100.0) fL MCH 30.3 (25.0-35.0) pg MCHC 32.0 (31.0-37.0) g/dL RDW 13.9 (11.5-15.5) % Plt Count 914 H D (150-450) k/uL MPV 7.1 Neutrophils % 83 % Lymphocytes % 13 % Monocytes % 2 % Eosinophils % 0 % Basophils % 0 % Neutrophils # 11.5 H (1.3-7.7) k/uL Lymphocytes # 1.9 (1.0-4.8) k/uL Monocytes # 0.3 (0-1.0) k/uL Eosinophils # 0.0 (0-0.7) k/uL Basophils # 0.1 (0-0.2) k/uL Sodium 133 L (137-145) mmol/L Potassium 5.1 (3.5-5.1) mmol/L Chloride 99 (98-107) mmol/L Carbon Dioxide 24 (22-30) mmol/L Anion Gap 10 mmol/L BUN 22 H (7-17) mg/dL Creatinine 0.65 (0.52-1.04) mg/dL Est GFR (CKD-EPI)AfAm >90 (>60 ml/min/1.73 sqM) Est GFR (CKD-EPI)NonAf >90 (>60 ml/min/1.73 sqM) Glucose 131 H (74-99) mg/dL Plasma Lactic Acid Jatin (0.7-2.0) mmol/L Calcium 9.7 (8.4-10.2) mg/dL Total Bilirubin 0.1 L (0.2-1.3) mg/dL AST 53 H (14-36) U/L ALT 59 H (4-34) U/L Alkaline Phosphatase 98 (38-126) U/L Total Protein 6.9 (6.3-8.2) g/dL Albumin 4.2 (3.5-5.0) g/dL Urine Color Colorless Urine Appearance Clear (Clear) Urine pH 6.0 (5.0-8.0) Ur Specific [place] 1.002 (1.001-1.035) Urine Protein Negative (Negative) Urine Glucose (UA) Negative (Negative) Urine Ketones Negative (Negative) Urine Blood Negative (Negative) Urine Nitrite Negative (Negative) Urine Bilirubin Negative (Negative) Urine Urobilinogen <2.0 (<2.0) mg/dL Ur Leukocyte Esterase Negative (Negative) Urine Opiates Screen Not Detected (NotDetected) Ur Oxycodone Screen Not Detected (NotDetected) Urine Methadone Screen Not Detected (NotDetected) Ur Propoxyphene Screen Not Detected (NotDetected) Ur Barbiturates Screen Not Detected (NotDetected) U Tricyclic Antidepress Not Detected (NotDetected) Ur Phencyclidine Scrn Not Detected (NotDetected) Ur Amphetamines Screen Not Detected (NotDetected) U Methamphetamines Scrn Not Detected (NotDetected) U Benzodiazepines Scrn Not Detected (NotDetected) Urine Cocaine Screen Not Detected (NotDetected) U Marijuana (THC) Screen Not Detected (NotDetected) Serum Alcohol <10 mg/dL 04/22/21 Range/Units 13:29 WBC (3.8-10.6) k/uL RBC (3.80-5.40) m/uL Hgb (11.4-16.0) gm/dL Hct (34.0-46.0) % MCV (80.0-100.0) fL MCH (25.0-35.0) pg MCHC (31.0-37.0) g/dL RDW (11.5-15.5) % Plt Count (150-450) k/uL MPV Neutrophils % % Lymphocytes % % Monocytes % % Eosinophils % % Basophils % % Neutrophils # (1.3-7.7) k/uL Lymphocytes # (1.0-4.8) k/uL Monocytes # (0-1.0) k/uL Eosinophils # (0-0.7) k/uL Basophils # (0-0.2) k/uL Sodium (137-145) mmol/L Potassium (3.5-5.1) mmol/L Chloride (98-107) mmol/L Carbon Dioxide (22-30) mmol/L Anion Gap mmol/L BUN (7-17) mg/dL Creatinine (0.52-1.04) mg/dL Est GFR (CKD-EPI)AfAm (>60 ml/min/1.73 sqM) Est GFR (CKD-EPI)NonAf (>60 ml/min/1.73 sqM) Glucose (74-99) mg/dL Plasma Lactic Acid Jatin 1.6 (0.7-2.0) mmol/L Calcium (8.4-10.2) mg/dL Total Bilirubin (0.2-1.3) mg/dL AST (14-36) U/L ALT (4-34) U/L Alkaline Phosphatase (38-126) U/L Total Protein (6.3-8.2) g/dL Albumin (3.5-5.0) g/dL Urine Color Urine Appearance (Clear) Urine pH (5.0-8.0) Ur Specific [place] (1.001-1.035) Urine Protein (Negative) Urine Glucose (UA) (Negative) Urine Ketones (Negative) Urine Blood (Negative) Urine Nitrite (Negative) Urine Bilirubin (Negative) Urine Urobilinogen (<2.0) mg/dL Ur Leukocyte Esterase (Negative) Urine Opiates Screen (NotDetected) Ur Oxycodone Screen (NotDetected) Urine Methadone Screen (NotDetected) Ur Propoxyphene Screen (NotDetected) Ur Barbiturates Screen (NotDetected) U Tricyclic Antidepress (NotDetected) Ur Phencyclidine Scrn (NotDetected) Ur Amphetamines Screen (NotDetected) U Methamphetamines Scrn (NotDetected) U Benzodiazepines Scrn (NotDetected) Urine Cocaine Screen (NotDetected) U Marijuana (THC) Screen (NotDetected) Serum Alcohol mg/dL Disposition <Wolfgang Godinez - Last Filed: 04/22/21 13:26> Is patient prescribed a controlled substance at d/c from ED?: No Time of Disposition: 17:54 <Charla Mahoney - Last Filed: 04/22/21 17:54> Clinical Impression: Acute delirium Disposition: TRANSFER TO PSYCH HOSP/UNIT Condition: Stable Referrals: Nonstaff,Physician [Primary Care Provider] - 1-2 days
[2021-04-22 14:06] LABS: Appearance,Urine Clear (Clear); Bilirubin,Urine Negative (Negative); Blood,Urine Negative (Negative); Color,Urine Colorless; Glucose,Urine (UA) Negative (Negative); Ketones,Urine Negative (Negative); Leukocyte Esterase,Urine Negative (Negative); Nitrite,Urine Negative (Negative); Protein,Urine Negative (Negative); Specific Gravity,Urine 1.002 (1.001-1.035); Urobilinogen,Urine <2.0 mg/dL (<2.0)
[2021-04-22 14:13] LABS: ALT 59 U/L (4-34); AST 53 U/L (14-36); African American GFR (CKD) >90 (>60 ml/min/1.73 sqM); Albumin 4.2 g/dL (3.5-5.0); Alcohol <10 mg/dL; Alkaline Phosphatase 98 U/L (38-126); Anion Gap 10 mmol/L; Blood Urea Nitrogen 22 mg/dL (7-17); Calcium 9.7 mg/dL (8.4-10.2); Carbon Dioxide 24 mmol/L (22-30); Chloride 99 mmol/L (98-107); Glucose 131 mg/dL (74-99); Non-African American GFR(CKD) >90 (>60 ml/min/1.73 sqM); Potassium 5.1 mmol/L (3.5-5.1); Sodium 133 mmol/L (137-145); Total Bilirubin 0.1 mg/dL (0.2-1.3); Total Protein 6.9 g/dL (6.3-8.2)
[2021-04-22 14:16] LABS: Basophils # (A) 0.1 k/uL (0-0.2); Basophils % (A) 0 %; Eosinophils % (A) 0 %; HCT 36.6 % (34.0-46.0); HGB 11.7 gm/dL (11.4-16.0); Lymphocytes # (A) 1.9 k/uL (1.0-4.8); Lymphocytes % (A) 13 %; MCH 30.3 pg (25.0-35.0); MCV 94.8 fL (80.0-100.0); Mean Platelet Volume 7.1; Monocytes # (A) 0.3 k/uL (0-1.0); Monocytes % (A) 2 %; Neutrophils # (A) 11.5 k/uL (1.3-7.7); Neutrophils % (A) 83 %; RBC 3.87 m/uL (3.80-5.40); RDW 13.9 % (11.5-15.5); WBC 13.8 k/uL (3.8-10.6)
[2021-04-22 14:24] LABS: Platelet Count 914 k/uL (150-450)
[2021-04-22 14:39] LABS: Amphetamine Screen,Urine Not Detected (NotDetected); Barbiturate Screen,Urine Not Detected (NotDetected); Benzodiazepines Screen,Urine Not Detected (NotDetected); Cocaine Screen,Urine Not Detected (NotDetected); Methadone Screen, Urine Not Detected (NotDetected); Opiate Screen,Urine Not Detected (NotDetected); Oxycodone Screen, Urine Not Detected (NotDetected); Phencyclidine Screen,Urine Not Detected (NotDetected); Tricyclic Antidepressant,Urine Not Detected (NotDetected); Urn Cannabinoid Scrn Not Detected (NotDetected)
[2021-04-22] MEDS ORDERED: LORazepam 2 MG/ML INJ IM PRN (19:33)
[2021-04-22] MEDS ORDERED: HALOPERIDOL LACTATE 5 MG/ML 1 ML VIAL IM PRN (19:34)
[2021-04-23 02:39] LABS: Glucose,Whole Blood 102 mg/dL (75-99)
[2021-04-23 07:40] LABS: Basophils # (A) 0.1 k/uL (0-0.2); Basophils % (A) 0 %; Eosinophils # (A) 0.1 k/uL (0-0.7); Eosinophils % (A) 1 %; HCT 37.7 % (34.0-46.0); HGB 12.2 gm/dL (11.4-16.0); Lymphocytes # (A) 2.7 k/uL (1.0-4.8); Lymphocytes % (A) 22 %; MCHC 32.4 g/dL (31.0-37.0); MCV 95.5 fL (80.0-100.0); Mean Platelet Volume 7.2; Monocytes # (A) 0.6 k/uL (0-1.0); Monocytes % (A) 5 %; Neutrophils # (A) 8.7 k/uL (1.3-7.7); Neutrophils % (A) 71 %; Platelet Count 784 k/uL (150-450); RBC 3.95 m/uL (3.80-5.40); RDW 13.5 % (11.5-15.5); WBC 12.3 k/uL (3.8-10.6)
[2021-04-23 07:53] LABS: ALT 70 U/L (4-34); AST 65 U/L (14-36); African American GFR (CKD) >90 (>60 ml/min/1.73 sqM); Albumin 3.9 g/dL (3.5-5.0); Alkaline Phosphatase 83 U/L (38-126); Anion Gap 9 mmol/L; Blood Urea Nitrogen 14 mg/dL (7-17); Calcium 9.4 mg/dL (8.4-10.2); Carbon Dioxide 26 mmol/L (22-30); Chloride 104 mmol/L (98-107); Glucose 103 mg/dL (74-99); Non-African American GFR(CKD) >90 (>60 ml/min/1.73 sqM); Potassium 4.5 mmol/L (3.5-5.1); Sodium 139 mmol/L (137-145); Total Bilirubin 0.1 mg/dL (0.2-1.3); Total Protein 6.5 g/dL (6.3-8.2)
[2021-04-23 08:02] LABS: Glucose,Whole Blood 122 mg/dL (75-99)
[2021-04-23 09:28] LABS: Glucose,Whole Blood 182 mg/dL (75-99)
[2021-04-23 11:36] LABS: Appearance,Urine Clear (Clear); Bilirubin,Urine Negative (Negative); Blood,Urine Negative (Negative); Color,Urine Colorless; Glucose,Urine (UA) Negative (Negative); Ketones,Urine Negative (Negative); Leukocyte Esterase,Urine Negative (Negative); Nitrite,Urine Negative (Negative); Protein,Urine Negative (Negative); Specific Gravity,Urine 1.001 (1.001-1.035); Urobilinogen,Urine <2.0 mg/dL (<2.0)
[2021-04-23 12:37] LABS: Chol/HDL Ratio 3.75; Cholesterol 150 mg/dL (0-200); LDL Cholesterol,Calculated 61.6 mg/dL (0.0-131.0)
[2021-04-23 12:48] LABS: Glucose,Whole Blood 106 mg/dL (75-99)
[2021-04-23 14:05] LABS: Hemoglobin A1C 6.5 % (4.0-6.0)
[2021-04-23] MEDS ORDERED: ONDANSETRON 4 MG TAB PO PRN (14:16)
[2021-04-23] MEDS ORDERED: HYDROXYCHLOROQUINE SULFATE 200 MG TAB PO ONE (14:30)
[2021-04-23 14:51] VITALS: BMI 27.4
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
--- NOTE | 2021-04-23 17:26 | P.CONS ---
History of Present Illness - Reason for Consult Medical clearance - History of Present Illness Patient is a 44-year-old female admitted to the second floor because of acute psychosis patient stopped taking the antipsychotic medications because of nausea vomiting secondary to antibiotics. Patient was diagnosed with urinary tract infection and was started on Augmentin patient completed about a week of the rapy. Patient denied any UTI symptoms at this time patient doesn't have any fever does have leukocytosis which is reactive secondary to her acute psychosis and probably secondary to prednisone she was taking for lupus. Patient doesn't have any fever chills. Patient has sinus tachycardia patient is known to have tachycardia. Because of sinus tachycardia obtain a TSH which is within normal limits d-dimer is within normal limits will use my metoprolol for her tachycardia. Patient EKG showed QTC of around 400. Since patient is on lidocaine 2 bronchial medications including Gan, haloperidol, metoprolol we will repeat another EKG tomorrow morning. REVIEW OF SYSTEMS: CONSTITUTIONAL: No fever, no malaise, no fatigue. HEENT: No recent visual problems or hearing problems. Denied any sore throat. CARDIOVASCULAR: No chest pain, orthopnea, PND, no palpitations, no syncope. PULMONARY: No shortness of breath, no cough, no hemoptysis. GASTROINTESTINAL: No diarrhea, no nausea, no vomiting, no abdominal pain. NEUROLOGICAL: No headaches, no weakness, no numbness. HEMATOLOGICAL: Denies any bleeding or petechiae. GENITOURINARY: Denies any burning micturition, frequency, or urgency. MUSCULOSKELETAL/RHEUMATOLOGICAL: Denies any joint pain, swelling, or any muscle pain. ENDOCRINE: Denies any polyuria or polydipsia. The rest of the 14-point review of systems is negative. PHYSICAL EXAMINATION: GENERAL: The patient is alert and oriented x3, not in any acute distress. Well developed, well nourished. HEENT: Pupils are round and equally reacting to light. EOMI. No scleral icterus. No conjunctival pallor. Normocephalic, atraumatic. No pharyngeal erythema. No thyromegaly. CARDIOVASCULAR: S1 and S2 present. No murmurs, rubs, or gallops. PULMONARY: Chest is clear to auscultation, no wheezing or crackles. ABDOMEN: Soft, nontender, nondistended, normoactive bowel sounds. No palpable organomegaly. MUSCULOSKELETAL: No joint swelling or deformity. EXTREMITIES: No cyanosis, clubbing, or pedal edema. NEUROLOGICAL: Gross neurological examination did not reveal any focal deficits. SKIN: No rashes. Assessment and plan -Leukocytosis reactive or secondary to prednisone no evidence of infection at this time patient will not require any antibiotics completed antibiotic therapy. Urinalysis is within normal limits -Mildly elevated liver enzymes a transaminitis will not require any further workup as there is only mild elevation. -History of lupus for which patient is on plaquanil and prednisone which will be continued -Sinus tachycardia workup as mentioned above. Patient will be started on symptomatic treatment with metoprolol -Acute psychosis and psychiatric issues management as per primary service -History of diabetes mellitus: In spite of her being on prednisone patient's hemoglobin A1c 6.5 will not require any medications but continues metformin down the line. Past Medical History Past Medical History: Diabetes Mellitus, Osteoarthritis (OA) Additional Past Medical History / Comment(s): Sepsis, Lupus,Type II diabetes History of Any Multi-Drug Resistant Organisms: None Reported Past Surgical History: No Surgical Hx Reported Past Anesthesia/Blood Transfusion Reactions: Unable to Obtain Smoking Status: Former smoker Medications and Allergies Home Medications Medication Instructions Recorded Confirmed Type Hydroxychloroquine Sulfate 200 mg PO Q48H 04/11/21 04/22/21 History [Plaquenil] Hydroxychloroquine Sulfate 400 mg PO Q48H 04/11/21 04/22/21 History [Plaquenil] Ibuprofen [Motrin] 600 mg PO Q6H PRN 04/11/21 04/22/21 History Lurasidone [Latuda] 40 mg PO DAILY 04/11/21 04/22/21 History Ondansetron HCl [Zofran] 4 mg PO Q8H PRN 04/11/21 04/22/21 History lamoTRIgine [LaMICtal] 200 mg PO DAILY 04/11/21 04/22/21 History Amoxicillin/Potassium Clav 1 tab PO BID 10 Days #20 tab 04/14/21 04/22/21 Rx [Augmentin 875-125 Tablet] Mirtazapine [Remeron] 15 mg PO HS 04/22/21 04/22/21 History predniSONE 7.5 mg PO DAILY 04/22/21 04/22/21 History Allergies Allergy/AdvReac Type Severity Reaction Status Date / Time acetaminophen [From Vicodin] Allergy Dyspnea Verified 04/23/21 03:04 carbamazepine [From Tegretol] Allergy Rash/Hives Verified 04/23/21 03:04 hydrocodone [From Vicodin] Allergy Dyspnea Verified 04/23/21 03:04 lamotrigine [From Lamictal] Allergy Dyspnea Verified 04/23/21 03:04 Sulfa (Sulfonamide Allergy Rash/Hives Verified 04/23/21 03:04 Antibiotics) Physical Exam Vitals: Vital Signs Temp Pulse Pulse Resp BP Pulse Ox 04/23/21 10:00 118 H 16 128/84 98 04/23/21 09:30 99.1 F 142 H 16 124/78 97 04/22/21 19:45 98.4 F 119 H 18 97 Intake and Output 04/23/21 04/23/21 04/23/21 06:59 14:59 22:59 Other: Weight 72.6 kg 72.6 kg Results CBC & Chem 7: 04/23/21 06:31 04/23/21 06:31 Labs: Abnormal Lab Results - Last 24 Hours (Table) 04/23/21 04/23/21 04/23/21 Range/Units 02:36 06:31 06:31 WBC 12.3 H (3.8-10.6) k/uL Plt Count 784 H (150-450) k/uL Neutrophils # 8.7 H (1.3-7.7) k/uL Glucose (74-99) mg/dL POC Glucose (mg/dL) 102 H (75-99) mg/dL Hemoglobin A1c 6.5 H (4.0-6.0) % Total Bilirubin (0.2-1.3) mg/dL AST (14-36) U/L ALT (4-34) U/L Triglycerides (0.0-149.0) mg/dL VLDL Cholesterol, Calc (5.00-40.00) mg/dL 04/23/21 04/23/21 04/23/21 Range/Units 06:31 08:00 09:25 WBC (3.8-10.6) k/uL Plt Count (150-450) k/uL Neutrophils # (1.3-7.7) k/uL Glucose 103 H (74-99) mg/dL POC Glucose (mg/dL) 122 H 182 H (75-99) mg/dL Hemoglobin A1c (4.0-6.0) % Total Bilirubin 0.1 L (0.2-1.3) mg/dL AST 65 H (14-36) U/L ALT 70 H (4-34) U/L Triglycerides 242.0 H (0.0-149.0) mg/dL VLDL Cholesterol, Calc 48.40 H (5.00-40.00) mg/dL 04/23/21 Range/Units 12:47 WBC (3.8-10.6) k/uL Plt Count (150-450) k/uL Neutrophils # (1.3-7.7) k/uL Glucose (74-99) mg/dL POC Glucose (mg/dL) 106 H (75-99) mg/dL Hemoglobin A1c (4.0-6.0) % Total Bilirubin (0.2-1.3) mg/dL AST (14-36) U/L ALT (4-34) U/L Triglycerides (0.0-149.0) mg/dL VLDL Cholesterol, Calc (5.00-40.00) mg/dL Microbiology - Last 24 Hours (Table) 04/22/21 13:29 Blood Culture - Preliminary Blood No Growth after 24 hours
[2021-04-23 17:51] LABS: Glucose,Whole Blood 89 mg/dL (75-99)
[2021-04-23] MEDS: METOPROLOL TARTRATE 25 MG TAB PO SCH (21:51)
[2021-04-23] MEDS: MIRTAZAPINE 15 MG TAB PO SCH (21:51)
[2021-04-24] MEDS: LORazepam 1 MG TAB PO PRN (00:54)
[2021-04-24] MEDS: predniSONE 2.5 MG TAB PO SCH (07:49)
[2021-04-24] MEDS: METOPROLOL TARTRATE 25 MG TAB PO SCH ×2 (07:49→20:16)
[2021-04-24] MEDS: HYDROXYCHLOROQUINE SULFATE 200 MG TAB PO SCH ×2 (07:49→07:56)
[2021-04-24 07:52] LABS: Glucose,Whole Blood 138 mg/dL (75-99)
[2021-04-24] MEDS ORDERED: lamoTRIgine 100 MG TAB PO SCH (09:00)
--- NOTE | 2021-04-24 11:02 | P.PN ---
Progress Note - Text Progress Note Date: 04/24/21 Interval History: Patient was seen wandering the hallways and was directable and agreeable to ulisses sanchez with keno writer/runner in the office. She is a 46-year-old female. She was admitted due to having confusing thoughts. It was reported that she had stopped taking all of her psychiatric medications that she was taking for bipolar disorder and obsessive-compulsive disorder. Patient states her thoughts are getting clear. She states her mood swings and mind racing are better. She states that she slept 5 hours last night. Patient states that she would like to resume gabapentin that she had for anxiety. She continues to report that she could not tolerate antipsychotics because they caused her to have tingling sensations and also had dyskinesia reaction. At this time patient denies any suicidal or homical ideations, intent or plan. Patient denies any auditory, visual hallucinations and denies any paranoia or delusions. Patient denies any side effects from the medications and has been compliant with meds. Mental Status Exam: General Appearance: Patient appears to be stated age is alert, directable, and cooperative. Behavior: Patient is calmly seated without any agitated behavior. Speech: Patient's speech is fluent and nonpressured. Mood/Affect: Mood is improving mildly, affect is congruent and constricted. Suicidality/Homicidality: Patient denies having any suicidal or homicidal ideation intent or plan. Perceptions: Patient denies any visual hallucinations and denies any auditory hallucinations Though content/process: There is no evidence of any delusional thought content and thought process is linear and goal-directed. Memory and concentration: AOX3, grossly intact for the purposes of this session Judgment and insight: Improving mildly Assessment Bipolar type I disorder mixed History of OCD Medical issues, lupus Plan: -Patient continues to meet criteria for inpatient psychiatric admission for symptom stabilization and safety. -Medications: Continue Lamictal 25 mg daily with the plan to titrate the dose if tolerated to 50 mg on 05/08/2021. Historically she responded favorably to Lamictal 200 mg. Continue Remeron 15 mg nightly and resume Neurontin 100 mg 3 times daily. Sent benefits of the medication regimen were discussed with the p atient. -When necessary Ativan and Haldol for agitation/aggression. -NRT - nicotine patch -SW on board for discharge planning. Encouraged the patient to participate in milieu. Currently awaiting deferral with rn radiation and court date.
[2021-04-24] MEDS: lamoTRIgine 25 MG TAB PO SCH (13:25)
[2021-04-24] MEDS: GABAPENTIN 100 MG CAP PO SCH ×2 (16:05→20:16)
[2021-04-24] MEDS: MIRTAZAPINE 15 MG TAB PO SCH (20:16)
[2021-04-24 20:20] LABS: Glucose,Whole Blood 121 mg/dL (75-99)
[2021-04-25] MEDS: lamoTRIgine 25 MG TAB PO SCH ×2 (08:05→19:57)
[2021-04-25] MEDS: GABAPENTIN 100 MG CAP PO SCH (08:05)
[2021-04-25] MEDS: LORazepam 1 MG TAB PO PRN (08:06)
[2021-04-25] MEDS: predniSONE 2.5 MG TAB PO SCH (08:06)
[2021-04-25] MEDS: METOPROLOL TARTRATE 25 MG TAB PO SCH ×2 (08:06→19:57)
[2021-04-25] MEDS: HYDROXYCHLOROQUINE SULFATE 200 MG TAB PO SCH (08:07)
--- NOTE | 2021-04-25 11:24 | P.PN ---
Progress Note - Text Progress Note Date: 04/25/21 Interval History: Patient was seen resting in bed and was directable and agreeable to speak with typewriter tester in the office. Patient appears oppositional. She states this provider, history of breath or my chart and no my history a lot more than he do right now. This is despite the provider trying to hear her side of the story of why she was admitted to the hospital. She remains vague on the details of the reasons for her hospitalization. She does state that she was trying to "detox my body from sepsis." When asked to further define what that entails, the patient provides vague responses and does not quite understand what sepsis is. She states that it is toxins in her organs. The patient states that she will not take any antipsychotic medications. She reports that she was placed on them initially because she was "practicing witchcraft." She reports that in the past she was prescribed antipsychotics because she had the ability to insert thoughts and read minds. She states that she does not have any currently. She is currently not reporting any suicidal or homicidal ideation, intention, and/or plan. She was denying any auditory or visualizations. She reports no paranoia or delusions at this time. She has been adherent with her medications but states that gabapentin and Lamictal should not mix. She notes multiple grandiose or narcissistic comments toward staff stating that she knows how to run a psychiatric unit better than everyone here and that she has a 4.0 GPA and knows more about medications and this provider. Mental Status Exam: General Appearance: Patient appears to be stated age is alert, directable, and cooperative. Fair hygiene and grooming. Behavior: Patient is calmly seated without any agitated behavior. Psychomotor activity appears normal. Speech: Patient's speech is fluent and nonpressured. Monotone, but spontaneous, with normal rate and volume. Mood/Affect: Mood is "kind of annoyed," affect is irritable. Suicidality/Homicidality: Patient denies having any suicidal or homicidal ideation intent or plan. Perceptions: Patient denies any visual hallucinations and denies any auditory hallucinations Though content/process: Possible grandiose delusions. Guarded in response to the reasons for her admission. Memory and concentration: AOX3, grossly intact for the purposes of this session Judgment and insight: Poor Vital Signs Temp 96.9 F L 04/25/21 08:00 Pulse 102 H 04/25/21 08:00 Resp 16 04/25/21 08:00 BP 170/100 04/25/21 08:00 Pulse Ox 98 04/25/21 08:00 Intake & Output 04/24/21 04/25/21 04/25/21 18:59 06:59 18:59 Weight 72.1 kg Laboratory Results - Last 24 Hours 04/24/21 20:18 POC Glucose (mg/dL) 121 H POC Glu Public Health Microbiologist ID Sabina Mistry Bipolar disorder, type I, mixed episode Obsessive-compulsive disorder, as per history Plan: -Patient continues to meet criteria for inpatient psychiatric admission for symptom stabilization and safety. Patient has signed adult voluntary form and medication consent and was placed in patient's chart. This provider will attempt to contact the patient's regarding the reasons for her admission. If the patient continues to refuse any antipsychotic medications, we will consider having the petition the patient while the treatment team will certify her. -Medications: Increase Lamictal to 25 mg by mouth twice a day for mood stabilization Discontinue gabapentin as per patient preference Continue Remeron 15 mg by mouth at bedtime for depression/insomnia -When necessary Ativan and Haldol for agitation/aggression. -SW on board for discharge planning. Encouraged the patient to participate in milieu.
[2021-04-25 12:00] LABS: Glucose,Whole Blood 103 mg/dL (75-99)
[2021-04-25] MEDS: diphenhydrAMINE 50 MG CAP PO PRN (14:40)
[2021-04-25] MEDS: MIRTAZAPINE 15 MG TAB PO SCH (19:57)
[2021-04-25] MEDS ORDERED: LURASIDONE 20 MG TAB PO SCH (21:00)
[2021-04-26 05:45] LABS: Glucose,Whole Blood 110 mg/dL (75-99)
[2021-04-26 07:47] LABS: Glucose,Whole Blood 134 mg/dL (75-99)
[2021-04-26] MEDS: HYDROXYCHLOROQUINE SULFATE 200 MG TAB PO SCH (09:56)
[2021-04-26] MEDS: METOPROLOL TARTRATE 25 MG TAB PO SCH ×2 (09:56→21:18)
[2021-04-26] MEDS: predniSONE 2.5 MG TAB PO SCH (09:56)
[2021-04-26] MEDS: lamoTRIgine 25 MG TAB PO SCH ×2 (09:57→21:18)
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
[2021-04-26 12:34] LABS: Glucose,Whole Blood 123 mg/dL (75-99)
[2021-04-26 17:32] LABS: Glucose,Whole Blood 113 mg/dL (75-99)
[2021-04-26 18:30] LABS: Glucose,Whole Blood 137 mg/dL (75-99)
[2021-04-26] MEDS ORDERED: PALIPERIDONE 3 MG TAB.ER.24 PO SCH (21:00)
[2021-04-26] MEDS: MIRTAZAPINE 15 MG TAB PO SCH (21:18)
[2021-04-26] MEDS: MAG HYDROX/AL HYDROX/SIMETH 30 ML CUP PO PRN (22:18)
[2021-04-27] MEDS ORDERED: MAG HYDROX/AL HYDROX/SIMETH 30 ML CUP ONE (02:34)
[2021-04-27 08:15] LABS: Glucose,Whole Blood 161 mg/dL (75-99)
[2021-04-27] MEDS: METOPROLOL TARTRATE 25 MG TAB PO SCH ×2 (08:36→21:33)
[2021-04-27] MEDS: predniSONE 2.5 MG TAB PO SCH (08:36)
[2021-04-27] MEDS: HYDROXYCHLOROQUINE SULFATE 200 MG TAB PO SCH (08:36)
[2021-04-27] MEDS: lamoTRIgine 25 MG TAB PO SCH ×2 (08:36→21:33)
[2021-04-27] MEDS: MAG HYDROX/AL HYDROX/SIMETH 30 ML CUP PO PRN ×3 (08:46→21:43)
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
[2021-04-27 17:58] LABS: Glucose,Whole Blood 100 mg/dL (75-99)
[2021-04-27 20:04] LABS: Glucose,Whole Blood 145 mg/dL (75-99)
[2021-04-27] MEDS: MIRTAZAPINE 15 MG TAB PO SCH (21:33)
[2021-04-27] MEDS: PALIPERIDONE 3 MG TAB.ER.24 PO SCH (21:33)
[2021-04-27] MEDS: diphenhydrAMINE 50 MG CAP PO PRN (22:56)
[2021-04-28 07:47] LABS: Glucose,Whole Blood 160 mg/dL (75-99)
[2021-04-28] MEDS: predniSONE 2.5 MG TAB PO SCH (08:44)
[2021-04-28] MEDS: HYDROXYCHLOROQUINE SULFATE 200 MG TAB PO SCH (08:44)
[2021-04-28] MEDS: lamoTRIgine 25 MG TAB PO SCH ×2 (08:48→20:46)
[2021-04-28] MEDS: METOPROLOL TARTRATE 25 MG TAB PO SCH ×2 (08:49→20:46)
[2021-04-28] MEDS: MAG HYDROX/AL HYDROX/SIMETH 30 ML CUP PO PRN (12:03)
[2021-04-28 13:00] LABS: Glucose,Whole Blood 106 mg/dL (75-99)
--- NOTE | 2021-04-28 14:22 | P.PN ---
Progress Note - Text Progress Note Date: 04/28/21 Clinical Problems: Bipolar disorder type I most current episode mixed, poor compliance with psychiatric treatment, history of lupus Interim history: I reviewed the medical record, interviewed the patient and discuss her treatment and treatment plan during team meeting. She was directable and agreed to speak to this fiction and nonfiction prose writer in his office. She continues to express concern about treatment with antipsychotic medication. She complained of at first side effects including increased muscle stiffness that resulted in what she described as "lobster hands." She also alleged that she is more restless and, last night, had emesis and urinary continence as result of her antipsychotic. She also perseverated about treatment of her lupus alleging that although she had not been taking her medication should not been restarted on 7.5 mg of prednisone. She requested that I contact her outpatient provider to verify that she should only taking 5 mg per day. She would not give me a clear answer whether her provider had recommended that she decrease her daily dose of prednisone. She began attending therapeutic groups and activities today. Her therapist described her behavior and appearance is appropriate, her thinking is concrete and her demonstrating fair focus, insight and judgment. She slept 6 hours last night. Mental status exam: She presented as a casually groomed 46-year-old female who was pleasant on approach. She made eye contact and attended to the interview. She had no distinguishing features or prominent physical modalities. She had an anxious facial expression. She was alert and oriented to person, place and time. She is able to sit throughout the interview. She had no abnormal involuntary movements. Her speech was spontaneous with slightly increased rate and rhythm. Her affect was blunted but appropriate. She denied suicidal ideation, wishes or homicidal ideation. She denied feeling hopeless, helpless or worthless. She ruminated about this hospitalization, the prescription of antipsychotic medications and current treatment of her lupus. She did not express clear ideas reference, paranoid ideation or delusions. Her thinking was concrete but her associations were not fully coherent, logical and goal directed. She denied hallucinations did not appear to responding to internal stimuli. Assessment: She is moderately mentally ill and moderately improved from admission. She is much less restless, irritable and agitated on admission. Plan: Continue inpatient treatment. Safety precautions. Continue current psychotropic medications including Lamictal 25 mg twice a day, Remeron 15 mg at bedtime and intake of 6. milligrams at bedtime. Continue with the plan to transition from oral to long-acting Invega given her history of noncompliance but stability when adherent with her medication. Continue current dose of her intellect lupus medications as recommended by the data processing consultant patch setter including Plaquenil 600 mg by mouth every 48 hours and prednisone 7.5 mg by mouth daily. Contact her outpatient provider to clarify a daily dose of prednisone. Encouraged continued participation in therapeutic groups and activities. Evaluate clinical status response to treatment daily basis.
[2021-04-28 17:34] LABS: Glucose,Whole Blood 125 mg/dL (75-99)
[2021-04-28] MEDS: PALIPERIDONE 3 MG TAB.ER.24 PO SCH (20:46)
[2021-04-28] MEDS: MIRTAZAPINE 15 MG TAB PO SCH (20:47)
[2021-04-28] MEDS ORDERED: MAGNESIUM HYDROXIDE 2,400 MG/10 ML CUP PO PRN (21:54)
[2021-04-29] MEDS: diphenhydrAMINE 50 MG CAP PO PRN (01:55)
[2021-04-29 07:49] LABS: Glucose,Whole Blood 139 mg/dL (75-99)
[2021-04-29] MEDS: HYDROXYCHLOROQUINE SULFATE 200 MG TAB PO SCH (08:29)
[2021-04-29] MEDS: MULTIVITAMINS, THERA 1 EACH TAB PO SCH (08:29)
[2021-04-29] MEDS: lamoTRIgine 25 MG TAB PO SCH ×2 (08:29→20:45)
[2021-04-29] MEDS: predniSONE 2.5 MG TAB PO SCH (08:29)
[2021-04-29] MEDS: METOPROLOL TARTRATE 25 MG TAB PO SCH ×2 (08:29→20:45)
[2021-04-29 11:55] LABS: Glucose,Whole Blood 109 mg/dL (75-99)
--- NOTE | 2021-04-29 13:39 | P.PN ---
Progress Note - Text Progress Note Date: 04/29/21 Clinical Problems: Bipolar disorder type I most current episode mixed, poor compliance with psychiatric treatment, history of lupus Interim history: I reviewed the medical record, interviewed the patient and discuss her treatment and treatment plan during team meeting. She again complained of side effects to Invega including feeling restless, staff and tremulous. We spent much of the session talking about Invega, treatment of her bipolar illness and side effects. She appeared receptive to my concern that if he were to lower the Invega before she achieves a therapeutic dose of Lamictal there is a risk of a setback that may prolong her current episode and hospitalization. She spent much of time talking about past negative experience with psychotropic medications and maintain that she did well when she was taking only Lamictal. Isabel also complained of continued poor sleep. The nursing sleep log notes that she only slept 2 hours last night and difficulty falling asleep been worked up frequently during the night. Isabel requests an increase in Remeron to help her sleep but we discussed concerns about the antidepressant worsening her mood. I spoke with the nurse practitioner, Gisela Last, from [facility]'s rheumatology clinic regarding her prednisone dose. She prescribed prednisone for the treatment of arthritic symptoms. The practitioner was receptive to plan to reduce the dose of prednisone because of the current manic episode. She has posed no management problem and has had no episodes of behavioral dyscontrol. She did not report further episodes of incontinence or vomiting. Mental status exam: She presented as a casually groomed 46-year-old female who was pleasant on approach. She made eye contact and attended to the interview. She had a blunted facial expression. She was alert and oriented to person, place and time. She appeared to have more difficulty remaining seated throughout the interview. She had a very fine hand tremor and her arm movements. Status. However, on examination she did not have increased muscle tone or cogwheeling. Her speech was spontaneous with an increased rate and rhythm. Her affect was blunted but appropriate. She denied suicidal ideation, wishes or homicidal ideation. She denied feeling hopeless, helpless or worthless. She ruminated about this hospitalization, the prescription of antipsychotic medications and current treatment of her lupus. She did not express clear ideas reference, paranoid ideation or delusions. Her thinking was concrete but her associations were not fully coherent, logical and goal directed. She denied hallucinations did not appear to responding to internal stimuli. Assessment: She is moderately mentally ill and moderately improved from admission. She is much less restless, irritable and agitated on admission. Plan: Continue inpatient treatment. Safety precautions. Continue current psychotropic medications including Lamictal 25 mg twice a day, Remeron 15 mg at bedtime and intake of 6 milligrams at bedtime. Continue with the plan to transition from oral to long-acting Invega given her history of noncompliance but stability when adherent with her medication. Continue Plaquenil 600 mg by mouth every 48 hours but decrease prednisone to 5 mg by mouth daily. Encouraged continued participation in therapeutic groups and activities. Evaluate clinical status response to treatment daily basis.
[2021-04-29 17:36] LABS: Glucose,Whole Blood 101 mg/dL (75-99)
[2021-04-29] MEDS: PALIPERIDONE 3 MG TAB.ER.24 PO SCH (20:45)
[2021-04-29] MEDS: MIRTAZAPINE 15 MG TAB PO SCH (21:42)
[2021-04-30] MEDS: HYDROXYCHLOROQUINE SULFATE 200 MG TAB PO SCH (07:42)
[2021-04-30] MEDS: METOPROLOL TARTRATE 25 MG TAB PO SCH ×2 (07:42→20:45)
[2021-04-30] MEDS: lamoTRIgine 25 MG TAB PO SCH ×2 (07:43→20:45)
[2021-04-30] MEDS: MULTIVITAMINS, THERA 1 EACH TAB PO SCH (07:43)
[2021-04-30] MEDS: predniSONE 5 MG TAB PO SCH (07:43)
[2021-04-30 07:46] VITALS: RESP 16
--- NOTE | 2021-04-30 11:35 | P.PN ---
Progress Note - Text Progress Note Date: 04/30/21 Interval History: Patient was seen wandering the hallways and was directable and agreeable to ulisses sanchez with radio script writer in the office. This is a 46-year-old female. Currently she is being treated for bipolar type I disorder and has history of OCD. Patient states that she was upset when she was put on Invega because antipsychotics made her restless in the past. Patient states the restlessness from inVega is lessening. No evidence of muscle stiffness. She camly seated in a chair and has not been observed being restless. Patient states that she will take her medications while in the hospital but will talk to her [facility] provider if she began to have any side effects from inVega. Patient states her tolerance for frustration is getting better. She states her mind racing and mood swings are better. She states she slept 6 hours last night. She states that she is learning how to cope by attending group therapy sessions. At this time patient denies any suicidal or homical ideations, intent or plan. Patient denies any auditory, visual hallucinations and denies any paranoia or delusions. Patient denies any side effects from the medications and has been compliant with meds. Mental Status Exam: General Appearance: Patient appears to be stated age is alert, directable, and cooperative. Behavior: Patient is calmly seated without any agitated behavior. Speech: Patient's speech is fluent and nonpressured. Mood/Affect: Mood is improving mildly, affect is congruent and constricted. Suicidality/Homicidality: Patient denies having any suicidal or homicidal ideation intent or plan. Perceptions: Patient denies any visual hallucinations and denies any auditory hallucinations Though content/process: There is no evidence of any delusional thought content and thought process is linear and goal-directed. Memory and concentration: AOX3, grossly intact for the purposes of this session Judgment and insight: Improving mildly Assessment Bipolar type I disorder mixed OCD by history Plan: -Patient continues to meet criteria for inpatient psychiatric admission for symp veronica stabilization and safety. -Medications: Continue current medications without any changes and monitor which include Lamictal 25 mg twice daily inVega 6 mg at bedtime and Remeron 15 mg at bedtime. -When necessary Ativan and Haldol for agitation/aggression. -NRT - nicotine patch -SW on board for discharge planning. Encouraged the patient to participate in milieu.
[2021-04-30] MEDS: PALIPERIDONE 3 MG TAB.ER.24 PO SCH (20:45)
[2021-04-30] MEDS: MIRTAZAPINE 15 MG TAB PO SCH (22:00)
[2021-05-01] MEDS: MULTIVITAMINS, THERA 1 EACH TAB PO SCH (08:37)
[2021-05-01] MEDS: METOPROLOL TARTRATE 25 MG TAB PO SCH ×2 (08:37→20:58)
[2021-05-01] MEDS: predniSONE 5 MG TAB PO SCH (08:37)
[2021-05-01] MEDS: lamoTRIgine 25 MG TAB PO SCH ×2 (08:37→20:58)
[2021-05-01] MEDS: HYDROXYCHLOROQUINE SULFATE 200 MG TAB PO SCH (08:37)
--- NOTE | 2021-05-01 15:27 | P.PN ---
Progress Note - Text Progress Note Date: 05/01/21 Interval History: Patient was seen wandering the hallways and was directable and agreeable to ulisses sanchez with report writer in the office. This is a 46-year-old female. Currently she is being treated for bipolar type I disorder and has history of OCD. Patient states the restlessness from inVega is occures in the evening after she tasks it. No evidence of muscle stiffness. He is being observed moving her arms and legs with no issues. She camly seated in a chair and has not been observed being restless. She states that she is learning how to cope by attending group therapy sessions. Patient states her tolerance for frustration is getting better. She states her mind racing and mood swings are better. She states she slept 7 hours last night. At this time patient denies any suicidal or homical ideations, intent or plan. Patient denies any auditory, visual hallucinations and denies any paranoia or delusions. Patient denies any side effects from the medications and has been compliant with meds. Mental Status Exam: General Appearance: Patient appears to be stated age is alert, directable, and cooperative. Behavior: Patient is calmly seated without any agitated behavior. Speech: Patient's speech is fluent and nonpressured. Mood/Affect: Mood is improving mildly, affect is congruent and constricted. Suicidality/Homicidality: Patient denies having any suicidal or homicidal ideation intent or plan. Perceptions: Patient denies any visual hallucinations and denies any auditory hallucinations Though content/process: There is no evidence of any delusional thought content and thought process is linear and goal-directed. Memory and concentration: AOX3, grossly intact for the purposes of this session Judgment and insight: Improving Assessment Bipolar type I disorder mixed OCD by history Plan: -Patient continues to meet criteria for inpatient psychiatric admission for symptom stabilization and safety. -Medications: Continue current medications without any changes and monitor which include Lamictal 25 mg twice daily inVega 6 mg at bedtime and Remeron 15 mg at bedtime. -When necessary Ativan and Haldol for agitation/aggression. -NRT - nicotine patch -SW on board for discharge planning. Encouraged the patient to participate in milieu.
[2021-05-01] MEDS: PALIPERIDONE 3 MG TAB.ER.24 PO SCH (20:58)
[2021-05-01] MEDS: MIRTAZAPINE 15 MG TAB PO SCH (22:14)
[2021-05-02 05:40] VITALS: TEMP 96.6
[2021-05-02] MEDS: predniSONE 5 MG TAB PO SCH (08:45)
[2021-05-02] MEDS: HYDROXYCHLOROQUINE SULFATE 200 MG TAB PO SCH (08:45)
[2021-05-02] MEDS: METOPROLOL TARTRATE 25 MG TAB PO SCH (08:45)
[2021-05-02] MEDS: lamoTRIgine 25 MG TAB PO SCH (08:46)
[2021-05-02] MEDS: MULTIVITAMINS, THERA 1 EACH TAB PO SCH (08:46)
[2021-05-02 08:48] VITALS: BP 138/75
[2021-05-02 10:53] VITALS: PULSE 86
--- NOTE | 2021-05-02 11:27 | P.DS ---
Providers Date of admission: 04/22/21 19:24 Expected date of discharge: 05/02/21 Attending physician: Sarwat Taylor MD Consults: 04/23/21 09:31 Consult Physician Routine Consulting Provider: Neeraj Lacy Consult Reason/Comments: history and physical Do you want consulting provider notified?: Already Contacted Primary care physician: Physician Nonstaff - Discharge Diagnosis(es) (1) Bipolar I disorder with chris Current Visit: Yes Status: Acute Priority: High (2) History of OCD (obsessive compulsive disorder) Current Visit: Yes Status: Chronic Priority: Medium Hospital Course: Admission HPI: Initial psychiatric evaluation was completed by Dr. Herrera on 04/23/2021 who wrote: "Patient is a 46-year-old female. She is the mother of one biological daughter and has 5 stepchildren. Patient states that she has an associates degree. She states she is receiving Social Security disability. Patient presented to the hospital for psychiatric evaluation as well as there was a concern about possible sepsis which has been ruled out. Patient reported that she came into the hospital as a result of having confusing thoughts. She states that she has been diagnosed with bipolar disorder and OCD. Patient states that she has not been taking any of her medications ( Lamictal, latuda and Remeron) without Providing an explanation. She states Lamictal helped her before to stabilize her mood and Remeron helped her to sleep better. Patient states that she is ALLERGIC to all antipsychotics because they made her have tingling sensations. Patient states her symptoms has gotten worse since she started taking a higher dose of prednisone that she takes for having lupus. Patient states prednisone worsened her agitation, made her become mean to people and also caused her to have mood swings and mind racing. Patient demonstrated having flight of ideas. She states "I practiced witchcraft when I was in my 20s" then says "my mom was always jealous of me because I'm prettier" . She states that she has not been sleeping well since this summer started. Patient reported having episodes of depression with lack of motivation, feeling hopeless and helpless with crying spells. Patient states that she has also been diagnosed with OCD. She states that she has the tendency to seek perfectionism. She states that she has to have things organized in a certain order otherwise she gets upset and anxious. She states in the past she responded to Neurontin for anxiety and BuSpar. Patient denies any suicidal or homicidal ideations intent or plan. At this time patient denies any auditory or visual hallucinations. Patient states that he has had multiple inpatient psychiatric admissions in the past. She states that she was treated at [facility] where she was diagnosed with OCD. She states she also received mental health services at [facility] and [place] where she was diagnosed with bipolar disorder. Patient states that she did not respond favorably to lithium or Depakote. She states she cannot take any antipsychotics because they made her have tingling sensations." Hospital course: Upon admission to the unit patient was initially presenting as bizarre, somatic, with very poor insight and judgment. Initially, patient was hesitant to agree with treatment. Everytime the idea of starting an antipsychotic medication was started with the patient, she would immediately push back and refused treatment. This provider then informed the patient that he would like to petition and certify her for an involuntary stay in order to ensure medication adherence. Initially, the patient's was on board with this plan but refused to petition the patient stating that he would prefer if the patient can just be convinced to take the oral medications. The patient's Latuda was discontinued and the patient was started on Invega instead should the plan to administer the long-acting injectable be started. She was continued on her Remeron and her Lamictal. Over the course of the hospitalization, the patient displayed gradual improvement in regards to her delusions, and became more cooperative with treatment. She displayed less somatic delusions and was less bizarre and more open and cooperative with this provider. On the day of discharge, the patient is not reporting any suicidal or homicidal ideation, intention, and/or plan. She is not reporting any auditory or visual hallucinations. She denies any paranoia or other delusions. The patient does express understanding that she is to take her medications and follow up with her appropriate outpatient providers. Patient does state that she will no longer listen to her and told her to get off her medications and to "detox from them." The patient is not reporting any access to firearms or other weapons. She is future oriented and expresses strong desire to live for herself and for her . The patient does not have a significant history of substance abuse however was counseled at great length and avoiding all substances including alcohol and marijuana. Prior to discharge, family meeting will be arranged by the social services director to ensure safety and provide education is needed. Mental status exam: General Appearance: Patient appears to be stated age is alert, pleasant, and cooperative. Patient is in no acute distress and has fair hygiene and grooming. Behavior: Patient is calmly seated without any agitated behavior. Normal psychomotor activity. Eye contact is appropriate. Friendly on approach. Speech: Patient's speech is fluent and nonpressured. Spontaneous, normal rate, tone, and volume. Mood/Affect: Patient reports their mood is "much better", affect is congruent and euthymic. Suicidality/Homicidality: Patient denies having any suicidal or homicidal ideation intent or plan. Perceptions: Patient denies any auditory or visual hallucinations. Though content/process: There is no evidence of any delusional thought content and thought process is linear and goal-directed. She is future oriented. Memory and concentration: AOX3, grossly intact for the purposes of this session. Can spell "WORLD" backwards correctly. Judgment and insight: Improved with guarded prognosis Vital Signs Temp 96.6 F L 05/02/21 05:39 Pulse 86 05/02/21 10:45 Resp 16 05/02/21 05:39 BP 138/75 05/02/21 08:48 Pulse Ox 97 05/02/21 05:39 Impression: Bipolar disorder, type I, mixed episode Obsessive-compulsive disorder, as per history Plan: -Continue with discharge today as patient has improved and stabilized psychiatrically and is not currently an imminent threat to herself and/or others. Patient will remain at chronically elevated risk for harm to self and/or others due to her history of nonadherence. -Continue medications: Invega 6 mg daily at bedtime for psychosis/mood stabilization Lamictal 25 mg by mouth twice a day for mood stabilization - LAMICTAL IS NOT A TRUE ALLERGY. Patient has many medications listed as allergies but likely she had some intolerance or a somatic delusion. She has been tolerating her lamictal well without any incident. Remeron 15 mg by mouth at bedtime for insomnia/depression -Patient was counseled on the need for medication compliance and appropriate follow-up at mental health and also primary care for medical issues. Patient verbalized understanding and agreed. -Social work to arrange for and conduct family meeting to ensure safety upon discharge and answer any questions/concerns.] Social work also to arrange for patients follow up appointments with [facility] for psychiatric care along with follow up with primary care provider. -Patient counseled on abstaining from recreational drugs and marijuana and alcohol. Was informed/educated on the adverse effects on their physical and mental health. Patient verbally agreed and understood. -Patient was instructed to return to the hospital or seek immediate medical care if their psychiatric or medical symptoms do worsen or reoccur. -Psychoeducation and supportive therapy provided to patient. Risks and benefits of pharmacological treatment versus the risks and benefits of nontreatment weight and discussed. Informed consent discussion held. Common side effects of psychotropics discussed such as, but not limited to headache, GI disturbance, sexual dysfunction, movement disorders, sedation, and orthostatic hypotension. Life threatening and blackbox warnings of prescribed medications also discussed. Potential risks of operating a vehicle or heavy machinery discussed with patient at length. Advised on importance of compliance and a reliable and responsible manner. Patient advised to review FDA consumer labeling of all medications prior to taking. Patient verbalized understanding of potential risks, and agrees with current treatment plan. Patient advised to medically contact physician/emergency personnel if any acute changes in condition occur. Laboratory Results WBC 12.3 k/uL (3.8-10.6) H 04/23/21 06:31 RBC 3.95 m/uL (3.80-5.40) 04/23/21 06:31 Hgb 12.2 gm/dL (11.4-16.0) 04/23/21 06:31 Hct 37.7 % (34.0-46.0) 04/23/21 06:31 MCV 95.5 fL (80.0-100.0) 04/23/21 06:31 MCH 31.0 pg (25.0-35.0) 04/23/21 06:31 MCHC 32.4 g/dL (31.0-37.0) 04/23/21 06:31 RDW 13.5 % (11.5-15.5) 04/23/21 06:31 Plt Count 784 k/uL (150-450) H 04/23/21 06:31 MPV 7.2 04/23/21 06:31 Neutrophils % 71 % 04/23/21 06:31 Lymphocytes % 22 % 04/23/21 06:31 Monocytes % 5 % 04/23/21 06:31 Eosinophils % 1 % 04/23/21 06:31 Basophils % 0 % 04/23/21 06:31 Neutrophils # 8.7 k/uL (1.3-7.7) H 04/23/21 06:31 Lymphocytes # 2.7 k/uL (1.0-4.8) 04/23/21 06:31 Monocytes # 0.6 k/uL (0-1.0) 04/23/21 06:31 Eosinophils # 0.1 k/uL (0-0.7) 04/23/21 06:31 Basophils # 0.1 k/uL (0-0.2) 04/23/21 06:31 D-Dimer 0.40 mg/L FEU (<0.60) 04/23/21 09:51 Sodium 139 mmol/L (137-145) 04/23/21 06:31 Potassium 4.5 mmol/L (3.5-5.1) 04/23/21 06:31 Chloride 104 mmol/L (98-107) 04/23/21 06:31 Carbon Dioxide 26 mmol/L (22-30) 04/23/21 06:31 Anion Gap 9 mmol/L 04/23/21 06:31 BUN 14 mg/dL (7-17) 04/23/21 06:31 Creatinine 0.59 mg/dL (0.52-1.04) 04/23/21 06:31 Est GFR (CKD-EPI)AfAm >90 (>60 ml/min/1.73 sqM) 04/23/21 06:31 Est GFR (CKD-EPI)NonAf >90 (>60 ml/min/1.73 sqM) 04/23/21 06:31 Glucose 103 mg/dL (74-99) H 04/23/21 06:31 POC Glucose (mg/dL) 101 mg/dL (75-99) H 04/29/21 17:33 POC Glu [employer] Addie Juan 04/29/21 17:[address] Glu mg/dL 140 04/23/21 06:31 Hemoglobin A1c 6.5 % (4.0-6.0) H 04/23/21 06:31 Plasma Lactic Acid Jatin 1.6 mmol/L (0.7-2.0) 04/22/21 13:29 Calcium 9.4 mg/dL (8.4-10.2) 04/23/21 06:31 Total Bilirubin 0.1 mg/dL (0.2-1.3) L 04/23/21 06:31 AST 65 U/L (14-36) H 04/23/21 06:31 ALT 70 U/L (4-34) H 04/23/21 06:31 Alkaline Phosphatase 83 U/L (38-126) 04/23/21 06:31 Total Protein 6.5 g/dL (6.3-8.2) 04/23/21 06:31 Albumin 3.9 g/dL (3.5-5.0) 04/23/21 06:31 Triglycerides 242.0 mg/dL (0.0-149.0) H 04/23/21 06:31 Cholesterol 150 mg/dL (0-200) 04/23/21 06:31 LDL Cholesterol, Calc 61.6 mg/dL (0.0-131.0) 04/23/21 06:31 VLDL Cholesterol, Calc 48.40 mg/dL (5.00-40.00) H 04/23/21 06:31 HDL Cholesterol 40.0 mg/dL (40.0-60.0) 04/23/21 06:31 Cholesterol/HDL Ratio 3.75 04/23/21 06:31 TSH 4.140 mIU/L (0.465-4.680) 04/23/21 06:31 Urine Color Colorless 04/23/21 11:15 Urine Appearance Clear (Clear) 04/23/21 11:15 Urine pH 6.0 (5.0-8.0) 04/23/21 11:15 Ur Specific [place] 1.001 (1.001-1.035) 04/23/21 11:15 Urine Protein Negative (Negative) 04/23/21 11:15 Urine Glucose (UA) Negative (Negative) 04/23/21 11:15 Urine Ketones Negative (Negative) 04/23/21 11:15 Urine Blood Negative (Negative) 04/23/21 11:15 Urine Nitrite Negative (Negative) 04/23/21 11:15 Urine Bilirubin Negative (Negative) 04/23/21 11:15 Urine Urobilinogen <2.0 mg/dL (<2.0) 04/23/21 11:15 Ur Leukocyte Esterase Negative (Negative) 04/23/21 11:15 Urine Opiates Screen Not Detected (NotDetected) 04/22/21 13:29 Ur Oxycodone Screen Not Detected (NotDetected) 04/22/21 13:29 Urine Methadone Screen Not Detected (NotDetected) 04/22/21 13:29 Ur Propoxyphene Screen Not Detected (NotDetected) 04/22/21 13:29 Ur Barbiturates Screen Not Detected (NotDetected) 04/22/21 13:29 U Tricyclic Antidepress Not Detected (NotDetected) 04/22/21 13:29 Ur Phencyclidine Scrn Not Detected (NotDetected) 04/22/21 13:29 Ur Amphetamines Screen Not Detected (NotDetected) 04/22/21 13:29 U Methamphetamines Scrn Not Detected (NotDetected) 04/22/21 13:29 U Benzodiazepines Scrn Not Detected (NotDetected) 04/22/21 13:29 Urine Cocaine Screen Not Detected (NotDetected) 04/22/21 13:29 U Marijuana (THC) Screen Not Detected (NotDetected) 04/22/21 13:29 Serum Alcohol <10 mg/dL 04/22/21 13:29 Allergies Allergy/AdvReac Type Severity Reaction Status Date / Time acetaminophen [From Vicodin] Allergy Dyspnea Verified 04/23/21 03:04 carbamazepine [From Tegretol] Allergy Rash/Hives Verified 04/23/21 03:04 hydrocodone [From Vicodin] Allergy Dyspnea Verified 04/23/21 03:04 lamotrigine [From Lamictal] Allergy Dyspnea Verified 04/23/21 03:04 Sulfa (Sulfonamide Allergy Rash/Hives Verified 04/23/21 03:04 Antibiotics) Patient Condition at Discharge: Stable Plan - Discharge Summary Discharge Rx Participant: No New Discharge Prescriptions: New Paliperidone [Invega] 6 mg PO HS 30 Days tab.er.24 lamoTRIgine [LaMICtal] 25 mg PO BID 30 Days tab Multivitamins, Thera [Multivitamin (formulary)] 1 each PO DAILY 30 Days tab Mirtazapine [Remeron] 15 mg PO HS 30 Days tab Metoprolol Tartrate [Lopressor] 25 mg PO BID tab Continue Hydroxychloroquine Sulfate [Plaquenil] 400 mg PO Q48H predniSONE 7.5 mg PO DAILY Hydroxychloroquine Sulfate [Plaquenil] 200 mg PO Q48H Discontinued Ibuprofen [Motrin] 600 mg PO Q6H PRN PRN Reason: Pain lamoTRIgine [LaMICtal] 200 mg PO DAILY Mirtazapine [Remeron] 15 mg PO HS Ondansetron HCl [Zofran] 4 mg PO Q8H PRN PRN Reason: Nausea And Vomiting Lurasidone [Latuda] 40 mg PO DAILY Amoxicillin/Potassium Clav [Augmentin 875-125 Tablet] 1 tab PO BID 10 Days #20 tab Discharge Medication List Hydroxychloroquine Sulfate [Plaquenil] 200 mg PO Q48H 04/11/21 [History] Hydroxychloroquine Sulfate [Plaquenil] 400 mg PO Q48H 04/11/21 [History] predniSONE 7.5 mg PO DAILY 04/22/21 [History] Metoprolol Tartrate [Lopressor] 25 mg PO BID tab 05/02/21 [Rx] Mirtazapine [Remeron] 15 mg PO HS 30 Days tab 05/02/21 [Rx] Multivitamins, Thera [Multivitamin (formulary)] 1 each PO DAILY 30 Days tab 05/02/21 [Rx] Paliperidone [Invega] 6 mg PO HS 30 Days tab.er.24 05/02/21 [Rx] lamoTRIgine [LaMICtal] 25 mg PO BID 30 Days tab 05/02/21 [Rx] Follow up Appointment(s)/Referral(s): [facility] [Outside] - 05/06/21 9:00 am (05/06 @ 9am- 10:30 Lizzette Raya 05/09 @ 14:00-15:00 Kristian Lagunas ) Nonstaff,Physician [Primary Care Provider] - 1-2 days Activity/Diet/Wound Care/Special Instructions: Activity and diet as tolerated. Avoid the use of street drugs and alcohol. Take all medications as prescribed. When you are in need of refills on your medications please contact your medical provider and/or outpatient psychiatrist to have this done. Please go to scheduled outpatient appointment for aftercare treatment. If symptoms return or become worse, call the crisis line at and/or go to the nearest emergency room for evaluation. Discharge Disposition: HOME SELF-CARE
== END 2021-05-02 13:00 | disposition home or self-care (01) | DRG 885 ==
LOC: EC 13:04 → 3MHU 19:24
PROVIDERS: ADMIT Psychiatry & Neurology Psychiatry; ATTEND Psychiatry & Neurology Psychiatry
DX: F31.60 Bipolar disorder, current episode mixed, unspecified (principal); F42.9 Obsessive-compulsive disorder, unspecified; E11.9 Type 2 diabetes mellitus without complications; D72.829 Elevated white blood cell count, unspecified; T38.0X5A Adverse effect of glucocorticoids and synthetic analogues, initial encounter; M32.9 Systemic lupus erythematosus, unspecified; R00.0 Tachycardia, unspecified; Z88.2 Allergy status to sulfonamides; Z88.5 Allergy status to narcotic agent; Z88.8 Allergy status to other drugs, medicaments and biological substances; M19.90 Unspecified osteoarthritis, unspecified site; Z87.891 Personal history of nicotine dependence
CPT/HCPCS: 36415; 80053; 80061; 80306; 80320; 81003; 82075; 83036; 83605; 84443; 85025; 85379; 87040; 93005; 99285

== ENCOUNTER 2021-06-19 12:15 | Inpatient (IN) | payer OTHER, MEDICARE ==
--- NOTE | 2021-06-19 12:47 | ED ---
General Adult HPI - General Chief complaint: Psychiatric Symptoms Stated complaint: Mental Health Time Seen by Provider: 06/19/21 12:30 Source: patient, RN notes reviewed, old records reviewed Mode of arrival: ambulatory Limitations: no limitations - History of Present Illness Initial comments: 46-year-old tearful white female, alert and oriented 4, presents to the emergency room with 2 weeks of increasing depression and hopelessness. She states that she started have suicidal ideations today thinking that she was going to overdose on her own medications. She states that she feels as though she is not been productive and is not working. She had a job interview yesterday and he wanted to pay her under the table and she declines. She thinks that her is upset with her. He is normally very supportive for her. She states that her [facility] mental health doctor had put her on medications but she states they're not working. She also is complaining of some dysuria and is concerned because in the past she had a bladder infection that turned into sepsis. She denies any pain at this time. She does have a history of lupus, bipolar and depression. -: week(s) (2) Severity scale (1-10): 0 - Related Data Home Medications Medication Instructions Recorded Confirmed Hydroxychloroquine Sulfate 200 mg PO Q48H 04/11/21 06/19/21 [Plaquenil] Hydroxychloroquine Sulfate 400 mg PO Q48H 04/11/21 06/19/21 [Plaquenil] predniSONE 5 mg PO DAILY 04/22/21 06/19/21 Acetaminophen [Tylenol 8 Hour] 1,300 mg PO Q8H PRN 06/19/21 06/19/21 Clotrimazole Cream [Lotrimin Cream] 1 applic TOPICAL BID PRN 06/19/21 06/19/21 Multivitamins, Thera [Multivitamin 1 tab PO DAILY 06/19/21 06/19/21 (formulary)] Paliperidone [Invega] 6 mg PO HS 06/19/21 06/19/21 lamoTRIgine [LaMICtal] 25 mg PO DAILY 06/19/21 06/19/21 lamoTRIgine [LaMICtal] 50 mg PO HS 06/19/21 06/19/21 Previous Rx's Medication Instructions Recorded Metoprolol Tartrate [Lopressor] 25 mg PO BID tab 05/02/21 Mirtazapine [Remeron] 15 mg PO HS 30 Days tab 05/02/21 Allergies Allergy/AdvReac Type Severity Reaction Status Date / Time carbamazepine [From Tegretol] Allergy Rash/Hives Verified 06/19/21 13:30 hydrocodone [From Vicodin] Allergy Dyspnea Verified 06/19/21 13:30 lamotrigine [From Lamictal] Allergy Dyspnea Verified 06/19/21 13:30 Sulfa (Sulfonamide Allergy Rash/Hives Verified 06/19/21 13:30 Antibiotics) Review of Systems ROS Statement: Those systems with pertinent positive or pertinent negative responses have been documented in the HPI. ROS Other: All systems not noted in ROS Statement are negative. Past Medical History Past Medical History: Diabetes Mellitus Additional Past Medical History / Comment(s): Sepsis, Lupus, History of Any Multi-Drug Resistant Organisms: None Reported Past Surgical History: No Surgical Hx Reported Past Anesthesia/Blood Transfusion Reactions: Unable to Obtain Past Psychological History: Bipolar, Depression Smoking Status: Former smoker Past Alcohol Use History: None Reported Past Drug Use History: None Reported General Exam Limitations: no limitations General appearance: alert, in no apparent distress Head exam: Present: atraumatic, normocephalic, normal inspection Eye exam: Present: normal appearance, PERRL, EOMI. Absent: scleral icterus, conjunctival injection, periorbital swelling ENT exam: Present: normal exam, normal oropharynx, mucous membranes moist, other (Nicotine stained tongue) Neck exam: Present: normal inspection, full ROM. Absent: tenderness, m eningismus, lymphadenopathy, thyromegaly Respiratory exam: Present: normal lung sounds bilaterally. Absent: respiratory distress, wheezes, rales, rhonchi, stridor Cardiovascular Exam: Present: regular rate, normal rhythm, normal heart sounds. Absent: systolic murmur, diastolic murmur, rubs, gallop, clicks GI/Abdominal exam: Present: soft, normal bowel sounds. Absent: distended, tenderness, guarding, rebound, rigid Back exam: Present: normal inspection, full ROM. Absent: rash noted Neurological exam: Present: alert, oriented X3, normal gait Psychiatric exam: Present: depressed (Tearful), suicidal ideation (Plan to take overdose of her own meds, Lopressor and Ativan Lamictal) Skin exam: Present: warm, dry, intact, normal color. Absent: rash Course Vital Signs 06/19/21 12:24 Temperature 98.3 F Pulse Rate 91 Respiratory 18 Rate Blood Pressure 154/89 O2 Sat by Pulse 96 Oximetry Medical Decision Making - Medical Decision Making Patient's urinalysis clear of infection. She will be admitted to the hospital for suicidal ideations after examination and assessment by EPS nurse Maria R. - Lab Data Lab Results 06/19/21 06/19/21 Range/Units 13:17 15:05 Urine Color Light Yellow Urine Appearance Clear (Clear) Urine pH 7.0 (5.0-8.0) Ur Specific [place] 1.003 (1.001-1.035) Urine Protein Negative (Negative) Urine Glucose (UA) Negative (Negative) Urine Ketones Negative (Negative) Urine Blood Negative (Negative) Urine Nitrite Negative (Negative) Urine Bilirubin Negative (Negative) Urine Urobilinogen <2.0 (<2.0) mg/dL Ur Leukocyte Esterase Negative (Negative) Coronavirus (PCR) Not Detected (Not Detectd) Disposition Clinical Impression: Suicidal ideation Disposition: ADMITTED IP TO THIS [facility] Condition: Fair Decision Date: 06/19/21 Decision Time: 17:13
[2021-06-19 13:37] LABS: Appearance,Urine Clear (Clear); Bilirubin,Urine Negative (Negative); Blood,Urine Negative (Negative); Color,Urine Light Yellow; Glucose,Urine (UA) Negative (Negative); Ketones,Urine Negative (Negative); Leukocyte Esterase,Urine Negative (Negative); Nitrite,Urine Negative (Negative); Protein,Urine Negative (Negative); Specific Gravity,Urine 1.003 (1.001-1.035); Urobilinogen,Urine <2.0 mg/dL (<2.0)
[2021-06-19] MEDS ORDERED: MAGNESIUM HYDROXIDE 2,400 MG/10 ML CUP PO PRN (16:01)
[2021-06-19] MEDS ORDERED: MAG HYDROX/AL HYDROX/SIMETH 30 ML CUP PO PRN (16:01)
[2021-06-19] MEDS ORDERED: LORazepam 1 MG TAB PO PRN (16:01)
[2021-06-19] MEDS ORDERED: LORazepam 2 MG/ML INJ IM PRN (16:06)
[2021-06-19] MEDS ORDERED: HALOPERIDOL LACTATE 5 MG/ML 1 ML VIAL IM PRN (16:07)
[2021-06-19] MEDS: ACETAMINOPHEN TAB 325 MG TAB PO PRN (17:33)
[2021-06-19] MEDS: MIRTAZAPINE 15 MG TAB PO SCH (20:36)
[2021-06-19] MEDS: PALIPERIDONE 6 MG TAB.ER.24 PO SCH (20:36)
--- NOTE | 2021-06-20 03:33 | P.MDCNMH ---
History of Present Illness H&P Date: 06/20/21 Chief Complaint: Medical evaluation 46-year-old female with lupus Patient comes in due to overwhelming depression and suicidal ideation Patient has lupus she takes hydroxy chloroquine alternating dose and Lopressor she is not sure why she takes are Lopressor. She is also on prednisone low dose chronically She currently denies any flareup of her lupus symptoms. However she was concerned about urinary tract infection, urine analysis in the ED was unremarkable. Otherwise she denies any chest pain or trouble breathing nausea vomiting fevers or chills She does admit to occasional tobacco smoking she is trying to quit however every time she quits she relapses currently she is declining any nicotine patch Review of Systems Pertinent positives as noted in HPI. All other systems were reviewed and are negative Past Medical History Additional Past Medical History / Comment(s): Sepsis, Lupus, History of Any Multi-Drug Resistant Organisms: None Reported Past Surgical History: No Surgical Hx Reported Past Anesthesia/Blood Transfusion Reactions: Unable to Obtain Past Psychological History: Bipolar, Depression Smoking Status: Former smoker Past Alcohol Use History: None Reported Past Drug Use History: None Reported - Past Family History Family Family Medical History: No Reported History Medications and Allergies Home Medications Medication Instructions Recorded Confirmed Type Hydroxychloroquine Sulfate 200 mg PO Q48H 04/11/21 06/19/21 History [Plaquenil] Hydroxychloroquine Sulfate 400 mg PO Q48H 04/11/21 06/19/21 History [Plaquenil] predniSONE 5 mg PO DAILY 04/22/21 06/19/21 History Metoprolol Tartrate [Lopressor] 25 mg PO BID tab 05/02/21 06/19/21 Rx Mirtazapine [Remeron] 15 mg PO HS 30 Days tab 05/02/21 06/19/21 Rx Acetaminophen [Tylenol 8 Hour] 1,300 mg PO Q8H PRN 06/19/21 06/19/21 History Clotrimazole Cream [Lotrimin Cream] 1 applic TOPICAL BID PRN 06/19/21 06/19/21 History Multivitamins, Thera [Multivitamin 1 tab PO DAILY 06/19/21 06/19/21 History (formulary)] Paliperidone [Invega] 6 mg PO HS 06/19/21 06/19/21 History lamoTRIgine [LaMICtal] 25 mg PO DAILY 06/19/21 06/19/21 History lamoTRIgine [LaMICtal] 50 mg PO HS 06/19/21 06/19/21 History Allergies Allergy/AdvReac Type Severity Reaction Status Date / Time carbamazepine [From Tegretol] Allergy Rash/Hives Verified 06/19/21 13:30 hydrocodone [From Vicodin] Allergy Dyspnea Verified 06/19/21 13:30 lamotrigine [From Lamictal] Allergy Dyspnea Verified 06/19/21 13:30 Sulfa (Sulfonamide Allergy Rash/Hives Verified 06/19/21 13:30 Antibiotics) Physical Exam Vitals: Vital Signs Temp Pulse Pulse Resp BP BP Pulse Ox 06/19/21 17:09 98.4 F 93 16 105/83 97 06/19/21 12:24 98.3 F 91 18 154/89 96 Intake and Output 06/19/21 06/19/21 06/20/21 14:59 22:59 06:59 Other: Weight 75.75 kg 76 kg Constitutional: No acute distress, conversant, pleasant Eyes: Anicteric sclerae, moist conjunctiva, Pupils equal round reactive to light ENMT: NC/AT Oropharynx clear, no erythema, or exudates Neck: Supple, FROM, no masses, or JVD No carotid bruits No thyromegaly Lungs: Clear to auscultation Clear to percussion Normal respiratory effort, no accessory muscle use Cardiovascular: Heart regular in rate and rhythm, No murmurs, gallops, or rubs No peripheral edema Abdominal: Soft Nontender, no guarding, rebound or rigidity Abdomen moving with respiration Normoactive bowel sounds No hepatomegaly, No splenomegaly No palpable mass No abdominal wall hernia noted Skin: Normal temperature, tone, texture, turgor No induration No subcutaneous nodules No rash, lesions No ulcers Extremities: No digital cyanosis No clubbing Pedal pulses intact and symmetrical Radial pulses intact and symmetrical No calf tenderness Psychiatric: Alert and oriented to person, place and time Neuro Muscles Strength 5/5 in all 4 extremities Sensation to light touch grossly present throughout Cranial nerves II-XII grossly intact No focal sensory deficits Lymphatics: no palpable cervical or supraclavicular , or inguinal lymph nodes Cranial Nerve Examination - Cranial Nerves Cranial Nerve II- Optic: Intact Cranial Nerve III- Oculomotor: Intact Cranial Nerve IV- Trochlear: Intact Cranial Nerve V- Trigeminal: Intact Cranial Nerve - Abducens: Intact Cranial Nerve VII- Facial: Intact Cranial Nerve VIII- Auditory: Intact Cranial Nerve IX- Glossopharyngeal: Intact Cranial Nerve X- Vagus: Intact Cranial Nerve XI- Accessory: Intact Cranial Nerve XII- Hypoglossal: Intact Assessment and Plan Assessment: Depression and suicidal ideation Per psych Lupus Continue with her home medications hydroxychloroquine, prednisone Continue with Lopressor to avoid rebound hypertension and tachycardia It is not clear why patient is on Lopressor, i performed chart review, it seems to be new med since last discharge a month ago, but I can not find any clinical documentation on why it was started Follow-up labs Thank you for allowing us to participate in the care of this patient. We will follow peripherally. Do not hesitate to contact us with questions. Someone can be reached from the [facility] hospitalist group at all hours of the day at [phone].
[2021-06-20] MEDS ORDERED: NICOTINE 14MG/24HR PATCH TRANSDERM SCH (09:00)
[2021-06-20] MEDS: METOPROLOL TARTRATE 25 MG TAB PO SCH ×2 (09:08→20:08)
[2021-06-20] MEDS: HYDROXYCHLOROQUINE SULFATE 200 MG TAB PO SCH (09:09)
[2021-06-20] MEDS: predniSONE 5 MG TAB PO SCH (09:23)
[2021-06-20] MEDS: ACETAMINOPHEN TAB 325 MG TAB PO PRN ×3 (10:34→20:07)
[2021-06-20 10:54] LABS: Urine Alcohol Negative (Negative); Urine Barbiturate Negative (Negative); Urine Cocaine Negative (Negative); Urine Methadone Negative (Negative); Urine Opiates Negative (Negative); Urine Phencyclidine Negative (Negative)
[2021-06-20] MEDS ORDERED: CLOTRIMAZOLE 1% CREAM 30 GM TUBE TOPICAL PRN (11:52)
[2021-06-20] MEDS ORDERED: NICOTINE GUM (POLACRILEX) 2 MG GUM BUCCAL PRN (12:04)
--- NOTE | 2021-06-20 12:04 | P.HP ---
Psychiatric H&P - . H&P Date: 06/20/21 History & Physical: Allergies Allergy/AdvReac Type Severity Reaction Status Date / Time carbamazepine From Tegretol Allergy Rash/Hives Verified 06/19/21 13:30 hydrocodone From Vicodin Allergy Dyspnea Verified 06/19/21 13:30 lamotrigine From Lamictal Allergy Dyspnea Verified 06/19/21 13:30 Sulfa (Sulfonamide Allergy Rash/Hives Verified 06/19/21 13:30 Antibiotics) Vital Signs Temp 97.7 F 06/20/21 06:42 Pulse 76 06/20/21 06:42 Resp 18 06/20/21 06:42 BP 109/58 06/20/21 06:42 Pulse Ox 97 06/19/21 17:09 Intake & Output 06/19/21 06/20/21 06/20/21 18:59 06:59 18:59 Weight 76 kg Laboratory Last Values Urine Color Light Yellow 06/19/21 13:17 Urine Appearance Clear (Clear) 06/19/21 13:17 Urine pH 7.0 (5.0-8.0) 06/19/21 13:17 Ur Specific [place] 1.003 (1.001-1.035) 06/19/21 13:17 Urine Protein Negative (Negative) 06/19/21 13:17 Urine Glucose (UA) Negative (Negative) 06/19/21 13:17 Urine Ketones Negative (Negative) 06/19/21 13:17 Urine Blood Negative (Negative) 06/19/21 13:17 Urine Nitrite Negative (Negative) 06/19/21 13:17 Urine Bilirubin Negative (Negative) 06/19/21 13:17 Urine Urobilinogen <2.0 mg/dL (<2.0) 06/19/21 13:17 Ur Leukocyte Esterase Negative (Negative) 06/19/21 13:17 Urine HCG, Qual Not Detected (Not Detectd) 06/19/21 13:17 Urine Opiates Screen Negative ng/mL (Negative) 06/19/21 13:17 Urine Methadone Screen Negative ng/mL (Negative) 06/19/21 13:17 Ur Propoxyphene Screen Negative ng/mL (Negative) 06/19/21 13:17 Urine Barbiturates Negative ng/mL (Negative) 06/19/21 13:17 Ur Phencyclidine Scrn Negative ng/mL (Negative) 06/19/21 13:17 Ur Amphetamine Screen Negative ng/mL (Negative) 06/19/21 13:17 U Benzodiazepines Scrn Negative ng/mL (Negative) 06/19/21 13:17 Urine Cocaine Screen Negative ng/mL (Negative) 06/19/21 13:17 U Cannabinoids Screen Negative ng/mL (Negative) 06/19/21 13:17 Urine Alcohol Negative mg/dL (Negative) 06/19/21 13:17 Coronavirus (PCR) Not Detected (Not Detectd) 06/19/21 15:05 06/20/21 11:56 IDENTIFYING DATA: Patient is a 46-year-old female with history of bipolar disorder is currently has one daughter lives in a house and is unemployed. HPI: Patient presented to the hospital and according to ER reports she is clubbing of suicidal thoughts, depression with a plan of possibly overdosing on medications at home. Patient also claimed in the ER that her [facility] physician has been prescribing her medications and following her however she feels that they are not working for her. Patient was admitted for evaluation and treatment. Patient was recently admitted to the mental health unit in late March 2021. Patient was seen today by journalists and other writers and agreeable to speak in the office. She claims that she was feeling hopeless and helpless at home with regards to her bipolar and her mood swings. She states that she was upset that she had quit smoking at home and using marijuana coffee as well however states that she recently relapsed and was feeling very disappointed. She states that she "couldn't deal with relapsing on smoking" and was fairly tearful when describing it. She claims that she has been having experiencing had difficult time accepting her bipolar diagnosis. She claims that she was diagnosed at the age of 25 and has caused her significant impairment in life. She states that "I'm not super woman anymore" and feels that her mental illness has really taken a hold and prevented her from doing things in life. She states that she has been taking her medications consistently at home including Invega Lamictal and Remeron. She states that her sleep is fair however states that she is oversedated at times. She is denying any paranoia today. Patient denies any current suicidal or homicidal ideations intent or plan. At this time patient denies any auditory or visual hallucinations. Patient denies any flight of ideas racing thoughts and increased in goal directed behavior. Patient admits to using cigarettes recently and marijuana occasionally. She states that she is trying to quit these substances PAST PSYCHIATRIC HISTORY: Patient states that . She has a history of bipolar disorder. She is previously on intake, Lamictal and Remeron. She was last psychiatrically hospitalized in late March 2021. Patient currently follows up at [facility] with her psychiatrist. Patient denies any history of suicide attempts in the past. Past Medical History: Diabetes Mellitus Additional Past Medical History / Comment(s): Sepsis, Lupus, ALLERGIES: as per EMR CHEMICAL DEPENDENCY HISTORY: as per HPI FAMILY PSYCHIATRIC/SUBSTANCE USE HISTORY: She states that her daughter has anxiety and depression. She also states that her mother has a history of depression. SOCIAL HISTORY: Patient was born and raised in [facility]. She states that she has a business degree and completed college. 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 She states that she is currently unemployed. She currently lives with her and is has 1 daughter.. MENTAL STATUS EXAM: General Appearance: Patient appears to be tearful today, stated age is alert, directable, and attempts to cooperate. Patient appears to have fair hygiene and grooming. Behavior: Patient is seated without any agitated behavior. Tearful and anxious. Speech: Patient's speech is fluent and nonpressured. Mood/Affect: Patient reports their mood is depressed anxious, affect is congruent Suicidality/Homicidality: Patient denies having any homicidal ideation intent or plan. Denies any suicidal ideations intent or plan Perceptions: Patient denies any visual hallucinations and denies any auditory hallucinations Though content/process: Patient was fairly focused on her symptoms and her stre ssors. Logical at times. Thought endorse any delusions or paranoia. Memory and concentration: AOX3, grossly intact for the purposes of this session. Can spell "WORLD" backwards Judgment and insight: fair STRENGTHS/WEAKNESSES: strength is that patient is resilient. Weakness is that patient severe mental illness and medical comorbidities. INTELLECT: average IMPRESSIONS: Bipolar disorder, current episode depressed Cannabis use disorder mild Nicotine dependence. PLAN: -Patient is admitted under voluntary status to MHU for stabilization of psychiatric symptoms and safety. Patient has signed adult voluntary form and medication consent and is placed in patient's chart. -Medications : Will start patient on paliperidone by mouth 6 mg daily at bedtime for mood stabilization. We will also restart Lamictal however increase the dose to 50 mg twice a day for mood stabilization/depression. Continue with Remeron 15 mg daily at bedtime for mood/anxiety/insomnia. Consider adding on an anti depressant if patient is still not improving. -Ativan and Haldol PRN for agitation/aggression -Patient was informed of the risks, benefits and side effects of the medication and patient verbally consented to taking the medications. Patient signed med consent form and was placed in chart. -Internal Medicine consult to perform medical evaluation and physical. -NRT - nicotine gum. -SW on board for discharge planning. Encourage patient to participate in groups to work on coping skills. [employer] plant construction worker to gather collateral information from .
[2021-06-20] MEDS: lamoTRIgine 25 MG TAB PO SCH ×2 (12:26→20:08)
[2021-06-20] MEDS: MULTIVITAMINS, THERA 1 EACH TAB PO SCH (12:27)
[2021-06-20] MEDS: MIRTAZAPINE 15 MG TAB PO SCH (20:08)
[2021-06-20] MEDS: PALIPERIDONE 6 MG TAB.ER.24 PO SCH (20:08)
[2021-06-21 07:45] LABS: African American GFR (CKD) >90 (>60 ml/min/1.73 sqM); Anion Gap 9 mmol/L; Blood Urea Nitrogen 15 mg/dL (7-17); Calcium 9.5 mg/dL (8.4-10.2); Carbon Dioxide 23 mmol/L (22-30); Chloride 106 mmol/L (98-107); Glucose 104 mg/dL (74-99); Non-African American GFR(CKD) >90 (>60 ml/min/1.73 sqM); Potassium 4.6 mmol/L (3.5-5.1); Sodium 138 mmol/L (137-145)
[2021-06-21] MEDS: lamoTRIgine 25 MG TAB PO SCH ×2 (08:43→20:42)
[2021-06-21] MEDS: MULTIVITAMINS, THERA 1 EACH TAB PO SCH (08:43)
[2021-06-21] MEDS: predniSONE 5 MG TAB PO SCH (08:43)
[2021-06-21] MEDS: METOPROLOL TARTRATE 25 MG TAB PO SCH ×2 (08:43→20:42)
[2021-06-21] MEDS: HYDROXYCHLOROQUINE SULFATE 200 MG TAB PO SCH (08:44)
[2021-06-21] MEDS: ACETAMINOPHEN TAB 325 MG TAB PO PRN ×2 (08:46→15:16)
[2021-06-21] MEDS ORDERED: HYDROXYCHLOROQUINE SULFATE 200 MG TAB PO SCH (09:00)
--- NOTE | 2021-06-21 10:40 | P.PN ---
Progress Note - Text Progress Note Date: 06/21/21 Interval History: Patient was seen wandering the hallways and was directable and agreeable to ulisses sanchez with poem writer in the office. Patient states that she has been going to groups and trying to participate as best she can. She continues to endorse depression and some anxiety. She claims that she spoke to her yesterday and they both want her to start taking Cymbalta. she states that she is finding it hard to gather energy and get out of bed in the mornings and claims that her concentration has been poor without antidepressant. She states that she was able to sleep fairly last night. She states there have been a fair appetite. At this time patient denies any suicidal or homical ideations, intent or plan. Patient denies any auditory, visual hallucinations and denies any paranoia or delusions. Patient denies any side effects from the medications and has been compliant with meds. Mental Status Exam: General Appearance: Patient appears to not be tearful today, stated age is alert, directable, and attempts to cooperate. Patient appears to have fair hygiene and grooming. Behavior: Patient is seated without any agitated behavior. not tearful today Speech: Patient's speech is fluent and nonpressured. Mood/Affect: Patient reports their mood is depressed anxious, affect is co ngruent Suicidality/Homicidality: Patient denies having any homicidal ideation intent or plan. Denies any suicidal ideations intent or plan Perceptions: Patient denies any visual hallucinations and denies any auditory hallucinations Though content/process: Patient was fairly focused on her symptoms and her stressors. Logical at times. did not endorse any delusions or paranoia. Memory and concentration: AOX3, grossly intact for the purposes of this session. Judgment and insight: fair, improving mildly Assessment Bipolar disorder, current episode depressed Cannabis use disorder mild Nicotine dependence. Plan: -Patient continues to meet criteria for inpatient psychiatric admission for symptom stabilization and safety. Patient has signed adult voluntary form and medication consent and was placed in patient's chart. -Medications: Continue with paliperidone 6 mg daily at bedtime for mood stabilization, Remeron 15 mg daily at bedtime for mood/anxiety/insomnia. Started Cymbalta 30 mg daily for mood/anxiety/pain. Increased Lamictal to 75 mg twice a day for mood stabilization/depression. -When necessary Ativan and Haldol for agitation/aggression. -NRT - nicotine gum -SW on board for discharge planning. Encouraged the patient to participate in milieu. Likely discharge in 1-2 days back home.
[2021-06-21] MEDS: DULoxetine HCL 30 MG CAPSULE.DR PO SCH (10:58)
[2021-06-21] MEDS: PALIPERIDONE 6 MG TAB.ER.24 PO SCH (20:42)
[2021-06-21] MEDS: MIRTAZAPINE 15 MG TAB PO SCH (20:42)
[2021-06-22 07:11] VITALS: RESP 16; TEMP 97.6
[2021-06-22] MEDS: predniSONE 5 MG TAB PO SCH (08:45)
[2021-06-22] MEDS: lamoTRIgine 25 MG TAB PO SCH (08:45)
[2021-06-22] MEDS: DULoxetine HCL 30 MG CAPSULE.DR PO SCH (08:45)
[2021-06-22] MEDS: MULTIVITAMINS, THERA 1 EACH TAB PO SCH (08:45)
[2021-06-22] MEDS: METOPROLOL TARTRATE 25 MG TAB PO SCH (08:45)
[2021-06-22 08:47] VITALS: BP 103/66; PULSE 125
--- NOTE | 2021-06-22 10:45 | P.DS ---
Providers Date of admission: 06/19/21 15:50 Expected date of discharge: 06/22/21 Attending physician: Stanton Landrum MD Consults: 06/19/21 16:01 Consult Physician Routine Consulting Provider: [facility] Consult Reason/Comments: medical mangement Do you want consulting provider notified?: Yes Primary care physician: Physician Nonstaff - Discharge Diagnosis(es) (1) Bipolar disorder current episode depressed Current Visit: Yes Status: Acute Priority: High (2) Cannabis use disorder, mild, abuse Current Visit: Yes Status: Acute Priority: Medium (3) Nicotine dependence Current Visit: Yes Status: Acute Priority: Low Hospital Course: Admission HPI: Admission note was completed by property underwriter "Patient is a 46-year-old female with history of bipolar disorder is currently has one daughter lives in a house and is unemployed. Patient presented to the hospital and according to ER reports she is clubbing of suicidal thoughts, depression with a plan of possibly overdosing on medications at home. Patient also claimed in the ER that her [facility] physician has been prescribing her medications and following her however she feels that they are not working for her. Patient was admitted for evaluation and treatment. Patient was recently admitted to the mental health unit in late March 2021. Patient was seen today by property underwriter and agreeable to speak in the office. She claims that she was feeling hopeless and helpless at home with regards to her bipolar and her mood swings. She states that she was upset that she had quit smoking at home and using marijuana coffee as well however states that she recently relapsed and was feeling very disappointed. She states that she "couldn't deal with relapsing on smoking" and was fairly tearful when describing it. She claims that she has been having experiencing had difficult time accepting her bipolar diagnosis. She claims that she was diagnosed at the age of 25 and has caused her significant impairment in life. She states that "I'm not super woman anymore" and feels that her mental illness has really taken a hold and prevented her from doing things in life. She states that she has been taking her medications consistently at home including Invega Lamictal and Remeron. She states that her sleep is fair however states that she is oversedated at times. She is denying any paranoia today. Patient denies any current suicidal or homicidal ideations intent or plan. At this time patient denies any auditory or visual hallucinations. Patient denies any flight of ideas racing thoughts and increased in goal directed behavior. Patient admits to using cigarettes recently and marijuana occasionally. She states that she is trying to quit these substances" Hospital course: Upon admission to the unit patient was initially depressed and tearful. Patient was however directable and agreeable to commence treatment and signed adult voluntary form. Patient got along well with other patients on the unit and followed unit protocol. Patient was compliant with the medications and denied any side effects throughout hospital course. Patient was started on her home dose of paliperidone by mouth 6 mg daily at bedtime for mood stabilization, Remeron 15 mg daily at bedtime for mood/anxiety/insomnia, Cymbalta was started at 30 mg daily for mood/anxiety/pain. Patient was also restarted back on Lamictal and titrated up to dose of 150 mg daily at bedtime for mood stabilization/depression. Patient spoke of her stressors and engaged in therapy both group and individual. Patient was also seen by medical team for history and physical exam. Throughout the course of the hospitalization patient gradually improved with regards to mood lability, anxiety, sleep and returned back to her baseline level of functioning. On the day of discharge patient denied any suicidal or homicidal ideations intent or plan denied any auditory or visual hallucinations. Patient endorsed wanting to live for her health and her family. The patient denied any access to guns or weapons. Patient denied any paranoia and did not endorse any delusions. Patient does not have a significant history of substance abuse however was counseled on abstaining from all substances including alcohol and marijuana. Patient was also counseled on the medications and need for regular compliance and was encouraged to follow-up with their outpatient appointment for mental health and also for primary care. Prior to discharge a family meeting will be arranged by health care social worker to answer any questions and ensure safety upon discharge and to ensure that guns and weapons are locked away or removed from the house. Mental status exam: General Appearance: Patient appears to be stated age is alert, pleasant, and cooperative. Patient is in no acute distress and has improved hygiene and grooming Behavior: Patient is calmly seated without any agitated behavior. Speech: Patient's speech is fluent and nonpressured. Mood/Affect: Patient reports their mood is "better", affect is congruent Suicidality/Homicidality: Patient denies having any suicidal or homicidal ideation intent or plan. Perceptions: Patient denies any auditory or visual hallucinations. Though content/process: There is no evidence of any delusional thought content and thought process is linear and goal-directed. more future oriented Memory and concentration: AOX3, grossly intact for the purposes of this session. Can spell "WORLD" backwards correctly. Judgment and insight: improved with guarded prognosis Impression: Bipolar disorder, currently depressed Cannabis use disorder mild Nicotine dependence Plan: -Continue with discharge today as patient has improved and stabilized psychiatrically and is not currently an imminent threat to herself and/or others. -Continue medications: Paliperidone by mouth 6 mg daily at bedtime for mood stabilization, Remeron 15 mg daily at bedtime for mood/anxiety/insomnia, Cymbalta 30 mg daily for mood/anxiety/pain, Lamictal 150 mg daily at bedtime for mood stabilization/depression. Patient has been checking her skin for any rashes and was educated on the risk of Miranda-Keyon's rash and to stop medication and seek urgent medical attention if this does occur, patient verbally understood and agreed. -Patient was counseled on the need for medication compliance and appropriate follow-up at mental health and also primary care for medical issues. Patient verbalized understanding and agreed. -Social work to arrange for and conduct family meeting to ensure safety upon discharge and answer any questions/concerns. Social work also to arrange for patients follow up appointments with [facility] for psychiatric care along with follow up with primary care provider. -Patient counseled on abstaining from recreational drugs and marijuana and alcohol. Was informed/educated on the adverse effects on their physical and me ntal health. Patient verbally agreed and understood. -Patient was instructed to return to the hospital or seek immediate medical care if their psychiatric or medical symptoms do worsen or reoccur. Allergies Allergy/AdvReac Type Severity Reaction Status Date / Time carbamazepine [From Tegretol] Allergy Rash/Hives Verified 06/19/21 13:30 hydrocodone [From Vicodin] Allergy Dyspnea Verified 06/19/21 13:30 Sulfa (Sulfonamide Allergy Rash/Hives Verified 06/19/21 13:30 Antibiotics) Laboratory Results Sodium 138 mmol/L (137-145) 06/21/21 06:48 Potassium 4.6 mmol/L (3.5-5.1) 06/21/21 06:48 Chloride 106 mmol/L (98-107) 06/21/21 06:48 Carbon Dioxide 23 mmol/L (22-30) 06/21/21 06:48 Anion Gap 9 mmol/L 06/21/21 06:48 BUN 15 mg/dL (7-17) 06/21/21 06:48 Creatinine 0.69 mg/dL (0.52-1.04) 06/21/21 06:48 Est GFR (CKD-EPI)AfAm >90 (>60 ml/min/1.73 sqM) 06/21/21 06:48 Est GFR (CKD-EPI)NonAf >90 (>60 ml/min/1.73 sqM) 06/21/21 06:48 Glucose 104 mg/dL (74-99) H 06/21/21 06:48 Calcium 9.5 mg/dL (8.4-10.2) 06/21/21 06:48 Urine Color Light Yellow 06/19/21 13:17 Urine Appearance Clear (Clear) 06/19/21 13:17 Urine pH 7.0 (5.0-8.0) 06/19/21 13:17 Ur Specific [place] 1.003 (1.001-1.035) 06/19/21 13:17 Urine Protein Negative (Negative) 06/19/21 13:17 Urine Glucose (UA) Negative (Negative) 06/19/21 13:17 Urine Ketones Negative (Negative) 06/19/21 13:17 Urine Blood Negative (Negative) 06/19/21 13:17 Urine Nitrite Negative (Negative) 06/19/21 13:17 Urine Bilirubin Negative (Negative) 06/19/21 13:17 Urine Urobilinogen <2.0 mg/dL (<2.0) 06/19/21 13:17 Ur Leukocyte Esterase Negative (Negative) 06/19/21 13:17 Urine HCG, Qual Not Detected (Not Detectd) 06/19/21 13:17 Urine Opiates Screen Negative ng/mL (Negative) 06/19/21 13:17 Urine Methadone Screen Negative ng/mL (Negative) 06/19/21 13:17 Ur Propoxyphene Screen Negative ng/mL (Negative) 06/19/21 13:17 Urine Barbiturates Negative ng/mL (Negative) 06/19/21 13:17 Ur Phencyclidine Scrn Negative ng/mL (Negative) 06/19/21 13:17 Ur Amphetamine Screen Negative ng/mL (Negative) 06/19/21 13:17 U Benzodiazepines Scrn Negative ng/mL (Negative) 06/19/21 13:17 Urine Cocaine Screen Negative ng/mL (Negative) 06/19/21 13:17 U Cannabinoids Screen Negative ng/mL (Negative) 06/19/21 13:17 Urine Alcohol Negative mg/dL (Negative) 06/19/21 13:17 Coronavirus (PCR) Not Detected (Not Detectd) 06/19/21 15:05 Vital Signs Temp 97.6 F 06/22/21 06:55 Pulse 125 H 06/22/21 08:46 Resp 16 06/22/21 06:55 BP 103/66 06/22/21 08:46 Pulse Ox 97 06/19/21 17:09 Patient Condition at Discharge: Fair Plan - Discharge Summary Discharge Rx Participant: No New Discharge Prescriptions: New DULoxetine HCL [Cymbalta] 30 mg PO DAILY 30 Days lamoTRIgine [LaMICtal] 150 mg PO HS 30 Days tab Nicotine Gum (Polacrilex) [Nicorette] 2 mg BUCCAL Q4HR PRN 28 Days PRN Reason: Nicotine Cravings Continue Hydroxychloroquine Sulfate [Plaquenil] 400 mg PO Q48H predniSONE 5 mg PO DAILY Clotrimazole Cream [Lotrimin Cream] 1 applic TOPICAL BID PRN PRN Reason: ATHLETES FEET Multivitamins, Thera [Multivitamin (formulary)] 1 tab PO DAILY Acetaminophen [Tylenol 8 Hour] 1,300 mg PO Q8H PRN PRN Reason: Pain Paliperidone [Invega] 6 mg PO HS 30 Days tab Metoprolol Tartrate [Lopressor] 25 mg PO BID 30 Days tab Mirtazapine [Remeron] 15 mg PO HS 30 Days tab Discontinued lamoTRIgine [LaMICtal] 50 mg PO HS Hydroxychloroquine Sulfate [Plaquenil] 200 mg PO Q48H lamoTRIgine [LaMICtal] 25 mg PO DAILY Discharge Medication List Hydroxychloroquine Sulfate [Plaquenil] 400 mg PO Q48H 04/11/21 [History] predniSONE 5 mg PO DAILY 04/22/21 [History] Acetaminophen [Tylenol 8 Hour] 1,300 mg PO Q8H PRN 06/19/21 [History] Clotrimazole Cream [Lotrimin Cream] 1 applic TOPICAL BID PRN 06/19/21 [History] Multivitamins, Thera [Multivitamin (formulary)] 1 tab PO DAILY 06/19/21 [History] DULoxetine HCL [Cymbalta] 30 mg PO DAILY 30 Days 06/22/21 [Rx] Metoprolol Tartrate [Lopressor] 25 mg PO BID 30 Days tab 06/22/21 [Rx] Mirtazapine [Remeron] 15 mg PO HS 30 Days tab 06/22/21 [Rx] Nicotine Gum (Polacrilex) [Nicorette] 2 mg BUCCAL Q4HR PRN 28 Days 06/22/21 [Rx] Paliperidone [Invega] 6 mg PO HS 30 Days tab 06/22/21 [Rx] lamoTRIgine [LaMICtal] 150 mg PO HS 30 Days tab 06/22/21 [Rx] Follow up Appointment(s)/Referral(s): Nonstaff,Physician [Primary Care Provider] - 1-2 days Discharge Disposition: HOME SELF-CARE
[2021-06-22] MEDS ORDERED: lamoTRIgine 100 MG TAB PO SCH (21:00)
== END 2021-06-22 16:55 | disposition home or self-care (01) | DRG 885 ==
LOC: EC 12:15 → 3MHU 15:50
PROVIDERS: ADMIT Psychiatry & Neurology Psychiatry; ATTEND Psychiatry & Neurology Psychiatry
DX: F31.30 Bipolar disorder, current episode depressed, mild or moderate severity, unspecified (principal); R45.851 Suicidal ideations; F41.9 Anxiety disorder, unspecified; E11.9 Type 2 diabetes mellitus without complications; F12.10 Cannabis abuse, uncomplicated; M32.9 Systemic lupus erythematosus, unspecified; G47.00 Insomnia, unspecified; Z20.822 Contact with and (suspected) exposure to COVID-19; Z56.0 Unemployment, unspecified; Z79.899 Other long term (current) drug therapy; Z88.5 Allergy status to narcotic agent; Z88.2 Allergy status to sulfonamides; Z88.1 Allergy status to other antibiotic agents; Z87.891 Personal history of nicotine dependence
CPT/HCPCS: 80048; 80306; 81003; 81025; 82075; 87635; 99285

== ENCOUNTER 2021-07-20 11:08 | Inpatient (IN) | payer OTHER, MEDICARE ==
--- NOTE | 2021-07-20 12:13 | ED ---
General Adult HPI <MattFerdinand - Last Filed: 07/21/21 00:01> - General Source: patient Mode of arrival: ambulatory Limitations: no limitations <Jerardo Madison - Last Filed: 07/23/21 07:13> - General Chief complaint: Psychiatric Symptoms Stated complaint: mental health Time Seen by Provider: 07/20/21 11:42 - History of Present Illness Initial comments: Dictation was produced using [employer] dictation software. please excuse any grammatical, word or spelling errors. Chief Complaint: 46-year-old female presents to emergency Department for suicidal ideation and depression History of Present Illness: 46-year-old female she spoke with [facility]. Patient has plans to overdose on her medications. She states she's been feeling depressed. Denies any visual or auditory hallucinations. Patient has no medical complaints today. The ROS documented in this emergency department record has been reviewed and confirmed by me. Those systems with pertinent positive or negative responses have been documented in the HPI. All other systems are other negative and/or noncontributory. PHYSICAL EXAM: General Impression: Alert and oriented x3, not in acute distress HEENT: Normocephalic atraumatic, extra-ocular movements intact, pupils equal and reactive to light bilaterally, mucous membranes moist. Cardiovascular: Heart regular rate and rhythm Chest: Able to complete full sentences, no retractions, no tachypnea Abdomen: abdomen soft, non-tender, non-distended, no organomegaly Musculoskeletal: Pulses present and equal in all extremities, no peripheral edema Motor: no focal deficits noted Neurological: CN II-XII grossly intact, no focal motor or sensory deficits noted Skin: Intact with no visualized rashes Psych: Normal affect and mood ED course: 46-year-old female presents to the ER for suicidal ideation and depression. vital signs upon arrival are within acceptable limits. Patient has no medical complaints. Patient medically cleared for EPS. signed out to oncoming physician pending EPS recommendations. (Jerardo Madison) - Related Data Home Medications Medication Instructions Recorded Confirmed Hydroxychloroquine Sulfate 400 mg PO Q48H 04/11/21 07/20/21 [Plaquenil] Acetaminophen [Tylenol 8 Hour] 1,300 mg PO Q8H PRN 06/19/21 07/20/21 Multivitamins, Thera [Multivitamin 1 tab PO DAILY 06/19/21 07/20/21 (formulary)] Hydroxychloroquine Sulfate 200 mg PO Q48H 07/20/21 07/20/21 [Plaquenil] diphenhydrAMINE [Benadryl] 25 mg PO HS 07/20/21 07/20/21 predniSONE 5 mg PO DAILY 07/20/21 07/20/21 Previous Rx's Medication Instructions Recorded DULoxetine HCL [Cymbalta] 30 mg PO DAILY 30 Days 06/22/21 Metoprolol Tartrate [Lopressor] 25 mg PO BID 30 Days tab 06/22/21 Mirtazapine [Remeron] 15 mg PO HS 30 Days tab 06/22/21 Paliperidone [Invega] 6 mg PO HS 30 Days tab 06/22/21 lamoTRIgine [LaMICtal] 150 mg PO HS 30 Days tab 06/22/21 Allergies Allergy/AdvReac Type Severity Reaction Status Date / Time carbamazepine [From Tegretol] Allergy Rash/Hives Verified 07/20/21 12:49 hydrocodone [From Vicodin] Allergy Dyspnea Verified 07/20/21 12:49 Sulfa (Sulfonamide Allergy Rash/Hives Verified 07/20/21 12:49 Antibiotics) Review of Systems ROS Other: All systems not noted in ROS Statement are negative. <Ferdinand Gutierrez - Last Filed: 07/21/21 00:01> ROS Other: All systems not noted in ROS Statement are negative. <Jerardo Madison - Last Filed: 07/23/21 07:13> ROS Statement: Those systems with pertinent positive or pertinent negative responses have been documented in the HPI. Past Medical History Past Medical History: Diabetes Mellitus Additional Past Medical History / Comment(s): Sepsis, Lupus, History of Any Multi-Drug Resistant Organisms: None Reported Past Surgical History: No Surgical Hx Reported Past Anesthesia/Blood Transfusion Reactions: Unable to Obtain Past Psychological History: Bipolar, Depression Smoking Status: Former smoker Past Alcohol Use History: None Reported Past Drug Use History: None Reported - Past Family History Family Family Medical History: No Reported History <Jerardo Madison - Last Filed: 07/23/21 07:13> General Exam Limitations: no limitations <Jerardo Madison - Last Filed: 07/23/21 07:13> Course Vital Signs 07/20/21 07/20/21 11:15 16:30 Temperature 99.1 F Pulse Rate 95 79 Respiratory 19 20 Rate Blood Pressure 141/91 117/75 O2 Sat by Pulse 97 96 Oximetry Medical Decision Making <Ferdinand Gutierrez - Last Filed: 07/21/21 00:01> - Lab Data Result diagrams: 07/21/21 10:16 07/21/21 10:16 <Jerardo Madison - Last Filed: 07/23/21 07:13> - Medical Decision Making Patient was signed out to me pending evaluation by psychiatry. EPS evaluated the patient and patient was deemed appropriate for inpatient psychiatric admission. Patient was therefore admitted to inpatient psychiatry in stable condition. (Ferdinand Gutierrez) - Lab Data Lab Results 07/20/21 07/20/21 Range/Units 12:25 16:55 Urine Opiates Screen Not Detected (NotDetected) Ur Oxycodone Screen Not Detected (NotDetected) Urine Methadone Screen Not Detected (NotDetected) Ur Propoxyphene Screen Not Detected (NotDetected) Ur Barbiturates Screen Not Detected (NotDetected) U Tricyclic Antidepress Not Detected (NotDetected) Ur Phencyclidine Scrn Not Detected (NotDetected) Ur Amphetamines Screen Not Detected (NotDetected) U Methamphetamines Scrn Not Detected (NotDetected) U Benzodiazepines Scrn Not Detected (NotDetected) Urine Cocaine Screen Not Detected (NotDetected) U Marijuana (THC) Screen Not Detected (NotDetected) Coronavirus (PCR) Not Detected (Not Detectd) Disposition <Ferdinand Gutierrez - Last Filed: 07/21/21 00:01> <Jerardo Madison - Last Filed: 07/23/21 07:13> Clinical Impression: Encounter for psychiatric assessment, Depression, Suicidal ideation Disposition: ADMITTED IP TO THIS HOSP Condition: Stable
[2021-07-20 13:09] LABS: Amphetamine Screen,Urine Not Detected (NotDetected); Benzodiazepines Screen,Urine Not Detected (NotDetected); Cocaine Screen,Urine Not Detected (NotDetected); Opiate Screen,Urine Not Detected (NotDetected); Phencyclidine Screen,Urine Not Detected (NotDetected); Tricyclic Antidepressant,Urine Not Detected (NotDetected); Urn Cannabinoid Scrn Not Detected (NotDetected)
[2021-07-20 13:10] LABS: Barbiturate Screen,Urine Not Detected (NotDetected); Methadone Screen, Urine Not Detected (NotDetected); Oxycodone Screen, Urine Not Detected (NotDetected)
[2021-07-20] MEDS ORDERED: LORazepam 1 MG TAB PO PRN (20:56)
[2021-07-20] MEDS ORDERED: ACETAMINOPHEN TAB 325 MG TAB PO PRN (20:56)
[2021-07-20] MEDS ORDERED: MAGNESIUM HYDROXIDE 2,400 MG/10 ML CUP PO PRN (20:56)
[2021-07-20] MEDS ORDERED: MAG HYDROX/AL HYDROX/SIMETH 30 ML CUP PO PRN (20:56)
[2021-07-20] MEDS ORDERED: LORazepam 2 MG/ML INJ IM PRN (21:01)
[2021-07-20] MEDS ORDERED: HALOPERIDOL LACTATE 5 MG/ML 1 ML VIAL IM PRN (21:02)
[2021-07-20] MEDS ORDERED: haloperidoL 5 MG TAB PO PRN (21:02)
[2021-07-20] MEDS ORDERED: diphenhydrAMINE 25 MG CAP PO SCH (21:15)
[2021-07-20] MEDS ORDERED: MIRTAZAPINE 15 MG TAB PO SCH (21:15)
[2021-07-20] MEDS: PALIPERIDONE 6 MG TAB.ER.24 PO SCH (23:10)
[2021-07-20] MEDS: METOPROLOL TARTRATE 25 MG TAB PO SCH (23:10)
[2021-07-20] MEDS: lamoTRIgine 100 MG TAB PO SCH (23:10)
[2021-07-21] MEDS: HYDROXYCHLOROQUINE SULFATE 200 MG TAB PO SCH (08:34)
[2021-07-21] MEDS: predniSONE 5 MG TAB PO SCH (08:34)
[2021-07-21] MEDS: MULTIVITAMINS, THERA 1 EACH TAB PO SCH (08:34)
[2021-07-21] MEDS: METOPROLOL TARTRATE 25 MG TAB PO SCH ×2 (08:34→21:39)
[2021-07-21] MEDS ORDERED: DULoxetine HCL 30 MG CAPSULE.DR PO SCH (09:00)
[2021-07-21 10:50] LABS: Basophils # (A) 0.1 k/uL (0-0.2); Basophils % (A) 1 %; Eosinophils # (A) 0.1 k/uL (0-0.7); Eosinophils % (A) 1 %; HCT 43.2 % (34.0-46.0); HGB 13.7 gm/dL (11.4-16.0); Lymphocytes # (A) 2.5 k/uL (1.0-4.8); Lymphocytes % (A) 26 %; MCH 29.7 pg (25.0-35.0); MCHC 31.8 g/dL (31.0-37.0); MCV 93.4 fL (80.0-100.0); Monocytes # (A) 0.6 k/uL (0-1.0); Monocytes % (A) 6 %; Neutrophils # (A) 6.2 k/uL (1.3-7.7); Neutrophils % (A) 66 %; Platelet Count 333 k/uL (150-450); RBC 4.63 m/uL (3.80-5.40); RDW 12.9 % (11.5-15.5); WBC 9.5 k/uL (3.8-10.6)
--- NOTE | 2021-07-21 11:13 | P.HP ---
Psychiatric H&P - . H&P Date: 07/21/21 History & Physical: Allergies Allergy/AdvReac Type Severity Reaction Status Date / Time carbamazepine From Tegretol Allergy Rash/Hives Verified 07/20/21 12:49 hydrocodone From Vicodin Allergy Dyspnea Verified 07/20/21 12:49 Sulfa (Sulfonamide Allergy Rash/Hives Verified 07/20/21 12:49 Antibiotics) Vital Signs Temp 97.0 F L 07/21/21 06:03 Pulse 112 H 07/21/21 08:33 Resp 18 07/21/21 06:03 BP 119/68 07/21/21 08:33 Pulse Ox 96 07/20/21 16:30 Intake & Output 07/20/21 07/21/21 07/21/21 18:59 06:59 18:59 Weight 75.75 kg 77.2 kg Laboratory Last Values WBC 9.5 k/uL (3.8-10.6) 07/21/21 10:16 RBC 4.63 m/uL (3.80-5.40) 07/21/21 10:16 Hgb 13.7 gm/dL (11.4-16.0) 07/21/21 10:16 Hct 43.2 % (34.0-46.0) 07/21/21 10:16 MCV 93.4 fL (80.0-100.0) 07/21/21 10:16 MCH 29.7 pg (25.0-35.0) 07/21/21 10:16 MCHC 31.8 g/dL (31.0-37.0) 07/21/21 10:16 RDW 12.9 % (11.5-15.5) 07/21/21 10:16 Plt Count 333 k/uL (150-450) 07/21/21 10:16 MPV 7.0 07/21/21 10:16 Neutrophils % 66 % 07/21/21 10:16 Lymphocytes % 26 % 07/21/21 10:16 Monocytes % 6 % 07/21/21 10:16 Eosinophils % 1 % 07/21/21 10:16 Basophils % 1 % 07/21/21 10:16 Neutrophils # 6.2 k/uL (1.3-7.7) 07/21/21 10:16 Lymphocytes # 2.5 k/uL (1.0-4.8) 07/21/21 10:16 Monocytes # 0.6 k/uL (0-1.0) 07/21/21 10:16 Eosinophils # 0.1 k/uL (0-0.7) 07/21/21 10:16 Basophils # 0.1 k/uL (0-0.2) 07/21/21 10:16 Urine Opiates Screen Not Detected (NotDetected) 07/20/21 12:25 Ur Oxycodone Screen Not Detected (NotDetected) 07/20/21 12:25 Urine Methadone Screen Not Detected (NotDetected) 07/20/21 12:25 Ur Propoxyphene Screen Not Detected (NotDetected) 07/20/21 12:25 Ur Barbiturates Screen Not Detected (NotDetected) 07/20/21 12:25 U Tricyclic Antidepress Not Detected (NotDetected) 07/20/21 12:25 Ur Phencyclidine Scrn Not Detected (NotDetected) 07/20/21 12:25 Ur Amphetamines Screen Not Detected (NotDetected) 07/20/21 12:25 U Methamphetamines Scrn Not Detected (NotDetected) 07/20/21 12:25 U Benzodiazepines Scrn Not Detected (NotDetected) 07/20/21 12:25 Urine Cocaine Screen Not Detected (NotDetected) 07/20/21 12:25 U Marijuana (THC) Screen Not Detected (NotDetected) 07/20/21 12:25 Coronavirus (PCR) Not Detected (Not Detectd) 07/20/21 16:55 07/21/21 11:01 IDENTIFYING DATA: Patient is a 46-year-old female with history of bipolar disorder is currently has one daughter lives in a house and is unemployed. HPI: Patient presented to the hospital complaining of of suicidal thoughts, depr ession with a plan of possibly overdosing on medications at home. \\ Patient was admitted for evaluation and treatment. Patient was recently admitted to the mental health unit in late July 2021 and has been seen multiple times by psychiatry in the past and currently follows up at [facility]. Patient was seen today by health technical writer and agreeable to speak in the office. She claims that she was feeling hopeless and helpless once again and feels that her sleep has progressively gotten worse. She states that she feels "trapped" and is feeling unhappy. She was fairly tearful during the interview today. She states that yesterday she was having thoughts of overdosing on her pills and claims that she relapsed back on smoking on Sunday. She states that she told her therapist that she was having suicidal thoughts. She spoke significantly about her lupus and not being able to do the things she used to do. She claims that she "can't understand why I can't get it into remission". States that this time she feels anxious and depressed. She states that she has been taking her medications consistently at home including Invega Lamictal and Remeron. She states that her sleep is fair however states that she is oversedated at times. She is denying any paranoia today. Patient denies any current suicidal or homicidal ideations intent or plan. At this time patient denies any auditory or visual hallucinations. Patient denies any flight of ideas racing thoughts and increased in goal directed behavior. Patient admits to using cigarettes daily. She states that she is trying to quit these substances PAST PSYCHIATRIC HISTORY: Patient states that . She has a history of bipolar disorder. She is previously on intake, Lamictal and Remeron, Cymbalta. She was last psychiatrically hospitalized in late June 2021. Patient currently follows up at [facility] with her psychiatrist. Patient denies any history of suicide attempts in the past. Past Medical History: Diabetes Mellitus Additional Past Medical History / Comment(s): Sepsis, Lupus, ALLERGIES: as per EMR CHEMICAL DEPENDENCY HISTORY: as per HPI FAMILY PSYCHIATRIC/SUBSTANCE USE HISTORY: She states that her daughter has anxiety and depression. She also states that her mother has a history of depression. SOCIAL HISTORY: Patient was born and raised in [facility]. She states that she has a business degree and completed college. 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 She states that she is currently unemployed. She currently lives with her and is has 1 daughter.. MENTAL STATUS EXAM: General Appearance: Patient appears to be tearful today, stated age is alert, directable, and attempts to cooperate. Patient appears to have fair hygiene and grooming. Behavior: Patient is seated without any agitated behavior. Tearful and anxious. Speech: Patient's speech is fluent and nonpressured. Mood/Affect: Patient reports their mood is depressed anxious, affect is congruent Suicidality/Homicidality: Patient denies having any homicidal ideation intent or plan. Denies any suicidal ideations intent or plan Perceptions: Patient denies any visual hallucinations and denies any auditory hallucinations Though content/process: Patient was fairly focused on her symptoms and her stressors. Logical at times. Thought endorse any delusions or paranoia. Memory and concentration: AOX3, grossly intact for the purposes of this session. Can spell "WORLD" backwards Judgment and insight: fair STRENGTHS/WEAKNESSES: strength is that patient is resilient. Weakness is that patient severe mental illness and medical comorbidities. INTELLECT: average IMPRESSIONS: Bipolar disorder, current episode depressed Cannabis use disorder mild Nicotine dependence. PLAN: -Patient is admitted under voluntary status to MHU for stabilization of psychiatric symptoms and safety. Patient has signed adult voluntary form and medication consent and is placed in patient's chart. -Medications : Continue with paliperidone by mouth 6 mg daily at bedtime for mood stabilization. Lamictal however increase the dose to 150 mg daily at bedtime for mood stabilization/depression. Discontinued Remeron. Replaced with doxepin 10 mg daily at bedtime for mood/sleep. Increased Cymbalta to 60 mg daily for mood/anxiety. -Ativan and Haldol PRN for agitation/aggression -Patient was informed of the risks, benefits and side effects of the medication and patient verbally consented to taking the medications. Patient signed med consent form and was placed in chart. -Internal Medicine consult to perform medical evaluation and physical. -NRT - nicotine gum. - on board for discharge planning. Encourage patient to participate in groups to work on coping skills. 07/21/21 11:09
[2021-07-21] MEDS: DULoxetine HCL 60 MG CAPSULE.DR PO SCH (11:21)
[2021-07-21 11:30] LABS: ALT 13 U/L (4-34); AST 19 U/L (14-36); African American GFR (CKD) >90 (>60 ml/min/1.73 sqM); Albumin 4.4 g/dL (3.5-5.0); Alkaline Phosphatase 50 U/L (38-126); Anion Gap 7 mmol/L; Blood Urea Nitrogen 12 mg/dL (7-17); Calcium 9.3 mg/dL (8.4-10.2); Carbon Dioxide 25 mmol/L (22-30); Chloride 103 mmol/L (98-107); Glucose 92 mg/dL (74-99); Non-African American GFR(CKD) >90 (>60 ml/min/1.73 sqM); Potassium 4.9 mmol/L (3.5-5.1); Sodium 135 mmol/L (137-145); Total Bilirubin 0.3 mg/dL (0.2-1.3); Total Protein 7.4 g/dL (6.3-8.2)
[2021-07-21 20:24] LABS: Chol/HDL Ratio 6.05 Ratio
[2021-07-21] MEDS ORDERED: DOXEPIN 10 MG CAP PO SCH (21:00)
--- NOTE | 2021-07-21 21:35 | P.CONS ---
History of Present Illness - Reason for Consult Consult date: 07/21/21 - History of Present Illness The patient was seen in the mental health unit [facility]. I was never alone with the patient. The patient is a 46-year-old female with a PMH of lupus who presents to the emergency room for depression and suicidal ideation. The patient was admitted to the mental health unit where she was seen and evaluated. She reports that due to her being unemployed and feeling lonely, she has had gradually worsening feelings of depression. She reports that her goes to work and that she has a [id number]-[id number] all day which has been very difficult for her. She however denied any physical complaints. She reports compliance with hydroxychloroquine along with her prednisone which she takes daily for her lupus and reports good control. She reports following up with her ultra sound technician on a regular basis. She denied any active complaints at the time of interview. She denied chest discomfort, she is without fever, chills, cough, nausea, vomiting, abdominal pain or diarrhea. Review of systems: Pertinent positives and negatives as discussed in HPI, a complete review of systems was performed and all other systems are negative. Physical examination: General: non toxic, no distress, appears at stated age, overweight Derm: no unusual rashes/lesions no unusual ecchymoses, warm, dry Head: atraumatic, normocephalic, symmetric Eyes: EOMI, no lid lag, anicteric sclera, pupils equal round reactive to light ENT: Nose and ears atraumatic, no thrush, no pharyngeal erythema Neck: No thyromegaly, no cervical lymphadenopathy, trachea midline, supple Mouth: no lip lesion, mucus membranes moist Cardiovascular: S1S2 reg, no murmur, positive posterior tibial pulse bilateral, no edema, capillary refill less than 2 seconds Lungs: CTA bilateral, no rhonchi, no rales , no accessory muscle use Abdominal: soft, nontender to palpation, no guarding, no appreciable organomegaly, normal bowel sounds Ext: no gross muscle atrophy, muscle strength 5 out of 5 in all 4 extremities grossly, no contractures, Neuro: CN II-XI grossly intact, light touch intact all 4 extremities, finger to nose within normal limits, Psych: Alert, oriented, appropriate affect Assessment/plan Chronic SLE -Continue with home meds Depression with suicidal ideation -As per psychiatry Thank you for allowing us to participate in the care of this patient. We will follow peripherally. Do not hesitate to contact us with questions. Someone can be reached from the [facility] hospitalist group at all hours of the day at [phone]. Past Medical History Past Medical History: Diabetes Mellitus Additional Past Medical History / Comment(s): Sepsis, Lupus, History of Any Multi-Drug Resistant Organisms: None Reported Past Surgical History: No Surgical Hx Reported Past Anesthesia/Blood Transfusion Reactions: Unable to Obtain Past Psychological History: Bipolar, Depression Smoking Status: Former smoker Past Alcohol Use History: None Reported Past Drug Use History: None Reported - Past Family History Family Family Medical History: No Reported History Medications and Allergies Home Medications Medication Instructions Recorded Confirmed Type Hydroxychloroquine Sulfate 400 mg PO Q48H 04/11/21 07/20/21 History [Plaquenil] Acetaminophen [Tylenol 8 Hour] 1,300 mg PO Q8H PRN 06/19/21 07/20/21 History Multivitamins, Thera [Multivitamin 1 tab PO DAILY 06/19/21 07/20/21 History (formulary)] DULoxetine HCL [Cymbalta] 30 mg PO DAILY 30 Days 06/22/21 07/20/21 Rx Metoprolol Tartrate [Lopressor] 25 mg PO BID 30 Days tab 06/22/21 07/20/21 Rx Mirtazapine [Remeron] 15 mg PO HS 30 Days tab 06/22/21 07/20/21 Rx Paliperidone [Invega] 6 mg PO HS 30 Days tab 06/22/21 07/20/21 Rx lamoTRIgine [LaMICtal] 150 mg PO HS 30 Days tab 06/22/21 07/20/21 Rx Hydroxychloroquine Sulfate 200 mg PO Q48H 07/20/21 07/20/21 History [Plaquenil] diphenhydrAMINE [Benadryl] 25 mg PO HS 07/20/21 07/20/21 History predniSONE 5 mg PO DAILY 07/20/21 07/20/21 History Allergies Allergy/AdvReac Type Severity Reaction Status Date / Time carbamazepine [From Tegretol] Allergy Rash/Hives Verified 07/20/21 12:49 hydrocodone [From Vicodin] Allergy Dyspnea Verified 07/20/21 12:49 Sulfa (Sulfonamide Allergy Rash/Hives Verified 07/20/21 12:49 Antibiotics) Physical Exam Vitals: Vital Signs Temp Pulse Pulse Resp BP 07/21/21 08:33 112 H 119/68 07/21/21 06:03 97.0 F L 62 18 110/60 07/20/21 23:47 97.5 F L 69 18 109/81 Intake and Output 07/21/21 07/21/21 07/21/21 06:59 14:59 22:59 Other: Weight 77.2 kg Results CBC & Chem 7: 07/21/21 10:16 07/21/21 10:16 Labs: Abnormal Lab Results - Last 24 Hours (Table) 07/21/21 Range/Units 10:16 Sodium 135 L (137-145) mmol/L Triglycerides 474.00 H (0.00-149.00) mg/dL Cholesterol 271.00 H (0.00-200.00) mg/dL
[2021-07-21] MEDS: lamoTRIgine 100 MG TAB PO SCH (21:39)
[2021-07-21] MEDS: PALIPERIDONE 6 MG TAB.ER.24 PO SCH (21:39)
[2021-07-22] MEDS: predniSONE 5 MG TAB PO SCH (08:53)
[2021-07-22] MEDS: DULoxetine HCL 60 MG CAPSULE.DR PO SCH (08:53)
[2021-07-22] MEDS: HYDROXYCHLOROQUINE SULFATE 200 MG TAB PO SCH (08:53)
[2021-07-22] MEDS: METOPROLOL TARTRATE 25 MG TAB PO SCH ×2 (08:54→21:07)
[2021-07-22] MEDS: MULTIVITAMINS, THERA 1 EACH TAB PO SCH (08:54)
--- NOTE | 2021-07-22 10:17 | P.PN ---
Progress Note - Text Progress Note Date: 07/22/21 Interval History: Patient was seen sitting in the lounge reading and was directable and agreeable to speak with mortgage loan underwriter in the office. Patient appears to be calmer today and less tearful. She appears to have a mild improvement in her affect. She states that her mood and anxiety have mildly been improving. She claims that she was able to sleep better last night with doxepin however wasn't requesting to have it increased to 20 mg at nighttime. She went on to speak about her Lupus and medic al condition. She appears to be more goal oriented today. She is not endorsing any delusions. In that she is going to group. At this time patient denies any suicidal or homical ideations, intent or plan. Patient denies any auditory, visual hallucinations and denies any paranoia or delusions. Patient denies any side effects from the medications and has been compliant with meds. Mental Status Exam: General Appearance: Patient appears to be not tearful today, stated age is alert, directable, and attempts to cooperate. Patient appears to have fair hygiene and grooming. Behavior: Patient is seated without any agitated behavior. Appears to be less anxious Speech: Patient's speech is fluent and nonpressured. Mood/Affect: Patient reports their mood is improving mildly, affect is congruent Suicidality/Homicidality: Patient denies having any homicidal ideation intent or plan. Denies any suicidal ideations intent or plan Perceptions: Patient denies any visual hallucinations and denies any auditory hallucinations Though content/process: Patient was fairly focused on her symptoms and her stressors. Logical at times. does not endorse any delusions or paranoia. Memory and concentration: AOX3, grossly intact for the purposes of this session. Judgment and insight: fair Assessment Bipolar disorder, current episode depressed Cannabis use disorder mild Nicotine dependence Plan: -Patient continues to meet criteria for inpatient psychiatric admission for symptom stabilization and safety. Patient has signed adult voluntary form and medication consent and was placed in patient's chart. -Medications: Paliperidone 6 mg daily at bedtime for mood stabilization. Lamictal 150 mg daily at bedtime for mood stabilization/depression. Increased doxepin to 20 mg daily at bedtime for mood/sleep, continue with Cymbalta 60 mg daily for mood/anxiety. -When necessary Ativan and Haldol for agitation/aggression. -NRT - nicotine gum -SW on board for discharge planning. Encouraged the patient to participate in milieu. If patient improves over the weekend and likely discharge Sunday or Sunday.
[2021-07-22] MEDS: lamoTRIgine 100 MG TAB PO SCH (21:05)
[2021-07-22] MEDS: DOXEPIN 10 MG CAP PO SCH (21:05)
[2021-07-22] MEDS: PALIPERIDONE 6 MG TAB.ER.24 PO SCH (21:07)
[2021-07-22] MEDS: diphenhydrAMINE 25 MG CAP PO PRN (21:07)
[2021-07-23] MEDS: predniSONE 5 MG TAB PO SCH (08:49)
[2021-07-23] MEDS: HYDROXYCHLOROQUINE SULFATE 200 MG TAB PO SCH (08:49)
[2021-07-23] MEDS: MULTIVITAMINS, THERA 1 EACH TAB PO SCH (08:49)
[2021-07-23] MEDS: DULoxetine HCL 60 MG CAPSULE.DR PO SCH (08:49)
[2021-07-23] MEDS: METOPROLOL TARTRATE 25 MG TAB PO SCH ×2 (08:49→20:41)
[2021-07-23 12:48] VITALS: RESP 16
--- NOTE | 2021-07-23 19:26 | PN ---
PROGRESS NOTE DATE OF SERVICE: 07/23/2021. CHIEF COMPLAINT: The patient was depressed. She had suicide thoughts. She has a history of bipolar disorder and a recent episode of sepsis. INTERVAL HISTORY: Patient has been doing fair. She had a quiet day yesterday. She comes out on the unit. She tends to have a quiet manner, though she does interact with others. She attended groups yesterday and seemed to engage well in the groups. She said she has not been sleeping so well at night, though may be a little bit better since starting the doxepin. Today she has been up. She has attended groups today. She generally feels that she is making some progress, though she still seems to be somewhat reserved in her manner. Her energy seems to be somewhat low as well. We talked at length about her history of bipolar disorder and potential risks relating to her antidepressant medications, including both Cymbalta and doxepin. On the other hand, she also understands that Cymbalta may have some benefits for her in terms of her chronic pain and other issues related to her lupus. She did state that she had not been sleeping well coming into the hospital. On the other hand, she did not really recognize any clear manic symptoms other than some decreased need for sleep. She said she was not sleeping much but also was not feeling tired. She does note in the past that Lamictal has been helpful for her in terms of stabilizing her mood. She was wondering about increasing doxepin due to sleep issues. Overall she appears to tolerate her psychotropic medications well. MENTAL STATUS EXAM: Patient sat without restlessness. Eye contact was fairly good. Psychomotor activity was slowed. She answered questions with brief responses. She spoke in a soft monotone voice. She did not say a lot. She was not too interactive. She did seem to pay good attention to the conversation. Her affect was blunted, her mood reserved. She did not appear to be significantly distressed. There was no indication for thought disorder. She denied thoughts of harm. Cognition was clear. ASSESSMENT: I will continue the current diagnosis and treatment plan. Will continue to engage the patient in individual and group therapeutic activities. I had an extensive discussion with the patient regarding her underlying bipolar disorder and potential risks and benefits relating to her psychotropics. She is at risk for induction of chris being on an antidepressant. We discussed that given that she has just been increased in the Cymbalta, I will not make any further changes in her medications and will give her at least the next few weeks to see how much benefit she may get from the antidepressant. There might be an appropriate consideration for titrating up on the antidepressant. Along with that, there might be consideration for titrating up on doxepin in terms of addressing sleep issues, though both the Cymbalta and doxepin would put her at risk in terms of induction of chris. We discussed that there are specific medications that have been studied for both bipolar chris and bipolar depression. At this point, she is on Invega, which is an appropriate medicine for treatment of chris. We discussed discharge planning and follow-up plans. At this point we will focus on stabilization and discharge planning. I anticipate the patient being discharged early in the week. GERALDO / PHILIP: [id number] /
[2021-07-23] MEDS: lamoTRIgine 100 MG TAB PO SCH (20:40)
[2021-07-23] MEDS: DOXEPIN 10 MG CAP PO SCH (20:41)
[2021-07-23] MEDS: PALIPERIDONE 6 MG TAB.ER.24 PO SCH (20:41)
[2021-07-24 07:20] VITALS: TEMP 97
[2021-07-24] MEDS: HYDROXYCHLOROQUINE SULFATE 200 MG TAB PO SCH (08:14)
[2021-07-24] MEDS: MULTIVITAMINS, THERA 1 EACH TAB PO SCH (08:15)
[2021-07-24] MEDS: METOPROLOL TARTRATE 25 MG TAB PO SCH ×2 (08:15→21:06)
[2021-07-24] MEDS: DULoxetine HCL 60 MG CAPSULE.DR PO SCH (08:15)
[2021-07-24] MEDS: predniSONE 5 MG TAB PO SCH (08:15)
--- NOTE | 2021-07-24 17:08 | PN ---
PROGRESS NOTE DATE OF SERVICE: 07/24/2021. CHIEF COMPLAINT: The patient was depressed. She had suicide thoughts. She has a history of bipolar disorder and recent episode of sepsis. INTERVAL HISTORY: Patient has been doing fairly well. She had a quiet day yesterday. She comes out on the unit. She interacts with others. She attended groups yesterday. She seems to engage well in the group process. She said she did not sleep too well last night, mainly because she hears the noise at different times, which tends to arouse her. She notes that at home she is pretty sensitive in hearing at night and wears earplugs so that she can sleep better. Today she has been up and out. She interacts with others. She notes that her mood has improved. She chose not to attend an early group today so that she could get a nap, which she felt was refreshing for her. She attended groups for the rest of the day. She notes that her mood is improving. She has a better outlook. She has not had problems with her medication. She has not noted any significant hypomanic or manic symptoms. MENTAL STATUS EXAM: Patient sat without restlessness. She gave good eye contact. She answered questions appropriately. Her thoughts were clear. She did not say a lot. She was somewhat spontaneous and interactive. Her affect was a little constricted though not significantly so. Her mood was quiet though not down or depressed. She did not appear to be distressed. There was no indication of thought disorder. She voiced no thoughts of harm. Cognition was clear. ASSESSMENT: I will continue the current diagnosis and treatment plan. I will continue psychotropic medications the same. I reviewed medication issues with the patient. We also discussed issues related to bipolar disorder and her somewhat complex medication regimen. I encouraged the patient to consider trying to keep her medications the same over the next 4-6 weeks without much adjustment so that she has a reasonable chance to see how well the medicines seem to be working for her in regard to stabilizing her mood and lifting her out of depression. We discussed discharge planning, and I would aim to discharge the patient tomorrow. GERALDO / PHILIP: [id number] /
[2021-07-24] MEDS: PALIPERIDONE 6 MG TAB.ER.24 PO SCH (21:06)
[2021-07-24] MEDS: DOXEPIN 10 MG CAP PO SCH (21:06)
[2021-07-24] MEDS: lamoTRIgine 100 MG TAB PO SCH (21:06)
[2021-07-24] MEDS: diphenhydrAMINE 25 MG CAP PO PRN (21:06)
[2021-07-25] MEDS: predniSONE 5 MG TAB PO SCH (08:34)
[2021-07-25] MEDS: DULoxetine HCL 60 MG CAPSULE.DR PO SCH (08:34)
[2021-07-25] MEDS: METOPROLOL TARTRATE 25 MG TAB PO SCH (08:34)
[2021-07-25] MEDS: MULTIVITAMINS, THERA 1 EACH TAB PO SCH (08:34)
[2021-07-25 08:35] VITALS: BP 109/65; PULSE 96
[2021-07-25] MEDS: HYDROXYCHLOROQUINE SULFATE 200 MG TAB PO SCH (08:35)
--- NOTE | 2021-07-26 20:12 | DS ---
DISCHARGE SUMMARY DATE OF SERVICE: 07/25/2021. DATE OF ADMISSION: 07/20/2021 DATE OF DISCHARGE: 07/25/2021 ADMISSION AND DISCHARGE DIAGNOSES: 1. Bipolar disorder, current episode depressed. 2. Cannabis use disorder. HISTORY PRESENTING ILLNESS: The patient is a 46-year-old female. She presented to the ED with depression and suicidal thinking. She had a plan of overdosing. She had a previous recent admission for depression toward the end of June and has had other previous psychiatric hospitalizations. She has had depression along with chronic pain related to her lupus. She has had some issues of mood swings with possible underlying bipolar symptoms. Since her previous hospitalization she was on Lamictal 100 mg a day, Cymbalta 60 mg a day and Invega 6 mg a day. There was no issues of substance abuse. She was admitted for further evaluation. PAST MEDICAL HISTORY: Positive for lupus. PHYSICAL EXAM: Noncontributory. See admission note for details. MENTAL STATUS EXAM: The patient was tearful during her admission evaluation. She was anxious. Her speech was fluent and non-pressured. Mood was depressed. There was no clear thoughts of harm though she acknowledged thoughts leading to her coming to the hospital. There was no indication of thought disorder. Cognition was clear. COURSE OF HOSPITALIZATION: The patient was admitted for comprehensive medical psychiatric and psychosocial evaluation. We engaged the patient in individual and group therapeutic activities. On admission, the patient was continued on Lamictal. Her dose was increased to 150 mg a day. She was continued on Cymbalta 60 mg a day. She had been on Remeron though that was discontinue and she was started on doxepin 10 mg a day in its place to help with sleep. In addition, she was continued on Invega 6 mg a day. Early on in her hospitalization the patient was fairly withdrawn. She did not interact too much with others. She would come out on the unit. She had various physical complaints, mainly migratory pain which she said was typical for her lupus. She began attending groups and seemed to engage well in the group process. Early on her sleep was poor, though she seemed to do a little bit better with doxepin. As her hospitalization progressed she showed some improvement in her mood. She noted low energy, though also seemed to show some improvement in that regard as well. In reviewing her history she seemed to indicate having past episodes of chris or hypomania that might last for days or weeks. She had trouble giving clear details of that, though seemed to acknowledge some periods where her mood could get elevated and energy could go up and she would have significant decreased need for sleep. In presentation for this admission she mostly was sleeping poorly though did not identify manic symptoms, though mainly depression and anxiety. She noted that her primary care physician had supported her for being on Cymbalta which was felt could help with her chronic pain from her lupus. She had no difficulties with her medications. Toward the end of her hospital stay her mood was improving, she had a better outlook. Her sleep was somewhat improved though she noted that she would likely not anticipate great sleep until she got to her own home. She said she was very sensitive of noise throughout the night and that the noise on the unit would wake her. She says typically at home she wears ear plugs that do help her sleep better. She was able to engage appropriately in discharge planning. CONDITION AT DISCHARGE: Patient was stable. Her mood was improved. She denied thoughts of harm. She tolerated her psychotropic medications. RECOMMENDATIONS AND FOLLOWUP: The patient will have followup through [facility] with an intake appointment on 08/03/2021. Discharge medications include Cymbalta 60 mg a day, Invega 6 mg a day, Lamictal 150 mg a day and doxepin 20 mg a day. There were extensive discussions with the patient regarding potential concerns relating to antidepressants in the face of bipolar disorder with the possibility that they could induce chris. It was encouraged for her to monitor closely for these issues and contact her physicians with any concerns. MMCARLOSL / IJN: [id number] /
== END 2021-07-25 14:00 | disposition home or self-care (01) | DRG 885 ==
LOC: EC 11:08 → 3MHU 20:47
PROVIDERS: ADMIT Psychiatry & Neurology Psychiatry; ATTEND Psychiatry & Neurology Psychiatry
DX: F31.30 Bipolar disorder, current episode depressed, mild or moderate severity, unspecified (principal); R45.851 Suicidal ideations; E11.9 Type 2 diabetes mellitus without complications; M32.9 Systemic lupus erythematosus, unspecified; F12.10 Cannabis abuse, uncomplicated; Z20.822 Contact with and (suspected) exposure to COVID-19; F41.9 Anxiety disorder, unspecified; G89.29 Other chronic pain; F17.210 Nicotine dependence, cigarettes, uncomplicated; Z71.6 Tobacco abuse counseling; Z79.899 Other long term (current) drug therapy; Z86.19 Personal history of other infectious and parasitic diseases; Z56.0 Unemployment, unspecified; Z71.89 Other specified counseling; Z88.5 Allergy status to narcotic agent; Z88.2 Allergy status to sulfonamides; Z88.8 Allergy status to other drugs, medicaments and biological substances; Z81.8 Family history of other mental and behavioral disorders
CPT/HCPCS: 80053; 80061; 80306; 82075; 83036; 83721; 84443; 85025; 87635; 99285

== ENCOUNTER → 2022-07-20 | Outpatient (CLI) | payer OTHER, MEDICARE ==
--- NOTE | 2022-07-20 16:27 | P.SLEEP ---
History of Present Illness DATE: 07/20/2022 CONSULTATION/NEW PATIENT EVALUATION HISTORY OF PRESENT ILLNESS/SLEEP-WAKE EVALUATION: 47year old lady had been evaluated in the sleep center for possible obstructive sleep apnea hypopnea syndrome. SLEEP SCHEDULE: Usually sleep schedule on weekdays 8 PM to 8 AM, during days off 8 PM to 8 AM. FALLING ASLEEP: No problems with falling asleep, no TV in bedroom. DURING SLEEP: Patient has loud snoring, grinding her teeth, has episodes of heartburn. Patient wakes up from sleep several times with difficulties to initiate sleep again. She is using Crestor once at night. No history of hypnogogical hallucinations, sleep paralysis, or cataplexy. Episodes of jerking movements. DURING THE DAY/WAKE STATE: No significant daytime sleepiness. [place]andall sleepiness scale is 0. Patient usually doesn't take naps. PAST MEDICAL HISTORY: Lupus, bipolar. PAST SURGICAL HISTORY: None. MEDICATIONS: Lamictal 150 mg once a day in the evening, doxepin once a day, hydrochloroquine 200 mg twice a day, Cymbalta once a day, prednisone. SOCIAL HISTORY: Positive for smoking 2 packs per day for about 15 years , alcohol consumption occasional. FAMILY HISTORY: Hypertension, stroke, arthritis, sleep apnea, diabetes, acid reflux. REVIEW OF SYSTEMS: Snoring, awakenings from sleep. No fevers. No double vision. No recent chest pain. No shortness of breath. No abdominal pain. No bleeding episodes. No blood in urine. No seizure episodes. PHYSICAL EXAMINATION: GENERAL: A pleasant patient without any distress. VITAL SIGNS: BP 127/85 , HR 98 , RR 16 , weight 176.2 pounds, height 5 foot 3- 1/2 inches, body mass index 30.6 . HEENT: PERRKAIN, EOMI. Evaluation of oropharynx showed tongue protrudes midline, low position of soft palate Mallampati 4. NECK: Supple. No JVD. Thyroid is not palpable. 14.5 inches in circumference. LUNGS: Clear to percussion and to auscultation. Good air exchange. No wheezing or rhonchi. HEART: S1, S2 regular. No murmurs, gallops or rubs. ABDOMEN: Soft and nontender. Bowel sounds are present. No organomegaly appreciated. EXTREMITIES: No clubbing or cyanosis. CUSTOMER DEVELOPMENT MANAGER: Awake, alert, and oriented x3. Cranial nerves 2 to 7 intact. There is no fasciculation or atrophy noted. No focal deficits observed. ASSESSMENT: 1. Snoring, awakenings from sleep, extremely low position of soft palate Mallampati 4. Obstructive sleep apnea hypopnea syndrome. 2. Insomnia with difficulties to reinitiate sleep after awakenings at night. 3 bipolar. 4. Lupus. 5 mild obesity. 6. Episodes of jerking movements. Rule out periodic limb movements PLAN: 1. Polysomnography for evaluation of patient's breathing during sleep and to check for possible leg movements. 2. CPAP/BiPAP titration if sleep study confirms obstructive sleep apnea- hypopnea syndrome. 3. Preferable position during sleep on the side. 4. No driving if patient feels any sleepiness. Patient is aware of civil and criminal liability for unsafe driving. 5. Sleep hygiene with regular sleep time for at least 7.5-8 hours. 6. Watching weight. Thank you very much for referring this patient for consultation. Sincerely, Carlyle Barnes MD, PhD, FAASM. Diplomat of [employer], Sleep Medicine Board by [employer] [facility] [place] Past Medical History Past Medical History: Diabetes Mellitus Additional Past Medical History / Comment(s): Sepsis, Lupus, History of Any Multi-Drug Resistant Organisms: None Reported Past Surgical History: No Surgical Hx Reported Past Anesthesia/Blood Transfusion Reactions: Unable to Obtain Past Psychological History: Bipolar, Depression Smoking Status: Former smoker Past Alcohol Use History: None Reported Past Drug Use History: None Reported - Past Family History Family Family Medical History: No Reported History Medications and Allergies Home Medications Medication Instructions Recorded Confirmed Type Hydroxychloroquine Sulfate 400 mg PO Q48H 04/11/21 07/20/21 History [Plaquenil] Multivitamins, Thera [Multivitamin 1 tab PO DAILY 06/19/21 07/20/21 History (formulary)] Metoprolol Tartrate [Lopressor] 25 mg PO BID 30 Days tab 06/22/21 07/20/21 Rx Hydroxychloroquine Sulfate 200 mg PO Q48H 07/20/21 07/20/21 History [Plaquenil] predniSONE 5 mg PO DAILY 07/20/21 07/20/21 History DULoxetine HCL [Cymbalta] 60 mg PO DAILY #30 capsule 07/25/21 Rx Doxepin [SINEquan] 20 mg PO HS #30 cap 07/25/21 Rx Paliperidone [Invega] 6 mg PO HS 30 Days #30 tab 07/25/21 Rx diphenhydrAMINE [Benadryl] 25 mg PO HS PRN #30 cap 07/25/21 Rx lamoTRIgine [LaMICtal] 150 mg PO HS 30 Days #30 tab 07/25/21 Rx Allergies Allergy/AdvReac Type Severity Reaction Status Date / Time carbamazepine [From Tegretol] Allergy Rash/Hives Verified 07/20/21 12:49 hydrocodone [From Vicodin] Allergy Dyspnea Verified 07/20/21 12:49 Sulfa (Sulfonamide Allergy Rash/Hives Verified 07/20/21 12:49 Antibiotics) Sleep Note - Sleep Note Sleep Note: Temperature: Pulse Rate: Respiratory Rate: Blood Pressure: SpO2: Height: Weight: BMI: Neck Circumference:
== END ==
LOC: SLEEP 15:37
PROVIDERS: ATTEND Internal Medicine
DX: G47.33 Obstructive sleep apnea (adult) (pediatric) (principal); M32.9 Systemic lupus erythematosus, unspecified; F31.9 Bipolar disorder, unspecified; R25.3 Fasciculation
CPT/HCPCS: 99211

== ENCOUNTER 2023-01-04 10:57 | Emergency (ER) | payer OTHER, MEDICARE ==
[2023-01-04 11:11] VITALS: TEMP 98.5
--- NOTE | 2023-01-04 12:19 | ED ---
Psych HPI - General Chief Complaint: Psychiatric Symptoms Stated Complaint: Mental Health Time Seen by Provider: 01/04/23 11:12 Source: patient, RN notes reviewed Mode of arrival: ambulatory Limitations: no limitations - History of Present Illness Initial Comments: 47-year-old female presents emergency department for psychiatric evaluation. Patient states she is depressed, intermittent suicidal. Patient states her yells her too much so she becomes very depressed. Patient states that she has not been physically harmed. Patient has no physical complaints. Patient denies any illicit drug use or alcohol use. - Related Data Home Medications Medication Instructions Recorded Confirmed Hydroxychloroquine Sulfate 200 mg PO BID 04/11/21 01/04/23 [Plaquenil] Docusate [Colace] 100 mg PO DAILY PRN 10/31/22 01/04/23 Psyllium Husk 100% [Metamucil 6 gm PO BID PRN 10/31/22 01/04/23 Packet] ARIPiprazole [Abilify] 15 mg PO DAILY 01/04/23 01/04/23 Clotrimazole [Clotrimazole AF] 1 applic TOPICAL BID 01/04/23 01/04/23 DULoxetine HCL [Cymbalta] 30 mg PO DAILY 01/04/23 01/04/23 Ibuprofen [Motrin] 600 mg PO TID PRN 01/04/23 01/04/23 Multivitamins, Thera [Multivitamin 1 tab PO DAILY 01/04/23 01/04/23 (formulary)] Nicotine Polacrilex [Nicotine Gum] 4 mg BUCCAL QID PRN 01/04/23 01/04/23 diphenhydrAMINE HCL [Benadryl] 25 mg PO BID PRN 01/04/23 01/04/23 hydrOXYzine pamoate [Vistaril] 25 mg PO TID PRN 01/04/23 01/04/23 lamoTRIgine [LaMICtal] 150 mg PO BID 01/04/23 01/04/23 tiZANidine [Zanaflex] 2 mg PO Q8H PRN 01/04/23 01/04/23 traZODone HCL [Desyrel] 100 mg PO HS 01/04/23 01/04/23 Allergies Allergy/AdvReac Type Severity Reaction Status Date / Time carbamazepine [From Tegretol] Allergy Rash/Hives Verified 01/04/23 12:22 hydrocodone [From Vicodin] Allergy Dyspnea Verified 01/04/23 12:22 lithium Allergy Rash/Hives Verified 01/04/23 12:22 Sulfa (Sulfonamide Allergy Rash/Hives/ Verified 01/04/23 12:22 Antibiotics) Itchy ziprasidone [From Geodon] Allergy Unknown Verified 01/04/23 12:22 lorazepam [From Ativan] AdvReac blackouts Verified 01/04/23 12:22 1st generation antipsychotics AdvReac See Comment Uncoded 01/04/23 12:22 Review of Systems ROS Statement: Those systems with pertinent positive or pertinent negative responses have been documented in the HPI. ROS Other: All systems not noted in ROS Statement are negative. Past Medical History Past Medical History: No Reported History Additional Past Medical History / Comment(s): Sepsis, Lupus, History of Any Multi-Drug Resistant Organisms: None Reported Past Surgical History: No Surgical Hx Reported Past Anesthesia/Blood Transfusion Reactions: No Reported Reaction Past Psychological History: Bipolar, Depression Smoking Status: Current every day smoker Past Alcohol Use History: None Reported Past Drug Use History: None Reported - Past Family History Family Family Medical History: Hypertension General Exam Limitations: no limitations General appearance: alert, in no apparent distress Head exam: Present: atraumatic, normocephalic, normal inspection Eye exam: Present: normal appearance, PERRL, EOMI. Absent: scleral icterus, conjunctival injection, periorbital swelling Neck exam: Present: normal inspection, full ROM. Absent: tenderness, meningismus, lymphadenopathy Respiratory exam: Present: normal lung sounds bilaterally. Absent: respiratory distress, wheezes, rales, rhonchi, stridor Cardiovascular Exam: Present: normal rhythm, tachycardia, normal heart sounds. Absent: systolic murmur, diastolic murmur, rubs, gallop, clicks GI/Abdominal exam: Present: soft, normal bowel sounds. Absent: distended, tenderness, guarding, rebound, rigid Back exam: Absent: CVA tenderness (R), CVA tenderness (L) Course Vital Signs 01/04/23 11:08 Temperature 98.5 F Pulse Rate 113 H Respiratory 20 Rate Blood Pressure 157/102 O2 Sat by Pulse 99 Oximetry Medical Decision Making - Medical Decision Making Was pt. sent in by a medical professional or institution (, PA, MARINE CARGO SPECIALIST, urgent care, hospital, or usp...) When possible be specific @ -No Did you speak to anyone other than the patient for history (EMS, parent, family, police, friend...)? What history was obtained from this source @ -No Did you review nursing and triage notes (agree or disagree)? Why? @ -I reviewed and agree with nursing and triage notes Were old charts reviewed (outside hosp., previous admission, EMS record, old EKG, old radiological studies, urgent care reports/EKG's, usp records)? Report findings @ -No old charts were reviewed Differential Diagnosis (chest pain, altered mental status, abdominal pain women, abdominal pain men, vaginal bleeding, weakness, fever, dyspnea, syncope, headache, dizziness, GI bleed, back pain, seizure, CVA, palpatations, mental health, musculoskeletal)? @ -Depression, PTSD, anxiety, bipolar disorder, schizophrenia EKG interpreted by me (3pts min.). @ -None X-rays interpreted by me (1pt min.). @ -None done CT interpreted by me (1pt min.). @ -None done U/S interpreted by me (1pt. min.). @ -None done What testing was considered but not performed or refused? (CT, X-rays, U/S, labs)? Why? @ -None What meds were considered but not given or refused? Why? @ -None Did you discuss the management of the patient with other professionals (professionals i.e. , PA, MARINE CARGO SPECIALIST, lab, RT, psych nurse, social media manager, criminal lawyer, teacher, safety officer, vocational case manager)? Give summary @ -EPS, psychiatrist who evaluated the patient recommend the patient to be discharged Was smoking cessation discussed for >3mins.? @ -No Was critical care preformed (if so, how long)? @ -No Were there social determinants of health that impacted care today? How? (Homelessness, low income, unemployed, alcoholism, drug addiction, transportation, low edu. Level, literacy, decrease access to med. care, senior care, rehab)? @ -No Was there de-escalation of care discussed even if they declined (Discuss DNR or withdrawal of care, Hospice)? DNR status @ -No What co-morbidities impacted this encounter? (DM, HTN, Smoking, COPD, CAD, Cancer, CVA, ARF, Chemo, Hep., AIDS, mental health diagnosis, sleep apnea, morbid obesity)? @ -None Was patient admitted / discharged? Hospital course, mention meds given and route, prescriptions, significant lab abnormalities, going to OR and other pertinent info. @ -Discharge was stated to plan patient will go to domestic violence snf. Patient agrees this plan Undiagnosed new problem with uncertain prognosis? @ -No Drug Therapy requiring intensive monitoring for toxicity (Heparin, Nitro, Insulin, Cardizem)? @ -No Were any procedures done? @ -No Diagnosis/symptom? @ -Depression Acute, or Chronic, or Acute on Chronic? @ -Acute Uncomplicated (without systemic symptoms) or Complicated (systemic symptoms)? @ -Uncomplicated Side effects of treatment? @ -[No] Exacerbation, Progression, or Severe Exacerbation? @ -[No] Poses a threat to life or bodily function? How? (Chest pain, [place], [place], pneumonia, PE, COPD, DKA, ARF, appy, cholecystitis, CVA, Diverticulitis, Homicidal, Suicidal, threat to staff... and all critical care pts) @ -[No] - Lab Data Lab Results 01/04/23 Range/Units 11:58 Urine Opiates Screen Not Detected (NotDetected) Ur Oxycodone Screen Not Detected (NotDetected) Urine Methadone Screen Not Detected (NotDetected) Ur Propoxyphene Screen Not Detected (NotDetected) Ur Barbiturates Screen Not Detected (NotDetected) U Tricyclic Antidepress Not Detected (NotDetected) Ur Phencyclidine Scrn Not Detected (NotDetected) Ur Amphetamines Screen Not Detected (NotDetected) U Methamphetamines Scrn Not Detected (NotDetected) U Benzodiazepines Scrn Not Detected (NotDetected) Urine Cocaine Screen Not Detected (NotDetected) U Marijuana (THC) Screen Not Detected (NotDetected) Disposition Clinical Impression: Depression Disposition: HOME SELF-CARE Condition: Stable Additional Instructions: Please return to the Emergency Department if symptoms worsen or any other concerns. Is patient prescribed a controlled substance at d/c from ED?: No Referrals: Neeraj Lacy MD [STAFF PHYSICIAN] - 1-2 days Time of Disposition: 15:30
[2023-01-04 12:36] LABS: Amphetamine Screen,Urine Not Detected (NotDetected); Barbiturate Screen,Urine Not Detected (NotDetected); Benzodiazepines Screen,Urine Not Detected (NotDetected); Cocaine Screen,Urine Not Detected (NotDetected); Methadone Screen, Urine Not Detected (NotDetected); Opiate Screen,Urine Not Detected (NotDetected); Oxycodone Screen, Urine Not Detected (NotDetected); Phencyclidine Screen,Urine Not Detected (NotDetected); Tricyclic Antidepressant,Urine Not Detected (NotDetected); Urn Cannabinoid Scrn Not Detected (NotDetected)
[2023-01-04] MEDS ORDERED: NICOTINE GUM (POLACRILEX) 2 MG GUM BUCCAL STA (13:34)
[2023-01-04 16:06] VITALS: BP 135/93; PULSE 99; RESP 18
== END 2023-01-04 16:02 | disposition home or self-care (01) ==
LOC: EC 10:57
DX: F32.A Depression, unspecified (principal); F17.200 Nicotine dependence, unspecified, uncomplicated; Z88.2 Allergy status to sulfonamides; Z88.8 Allergy status to other drugs, medicaments and biological substances; Z88.5 Allergy status to narcotic agent
CPT/HCPCS: 80306; 82075; 99284

== ENCOUNTER 2023-01-09 14:57 | Inpatient (IN) | payer OTHER, MEDICARE ==
[2023-01-09 16:31] LABS: Amphetamine Screen,Urine Not Detected (NotDetected); Barbiturate Screen,Urine Not Detected (NotDetected); Benzodiazepines Screen,Urine Not Detected (NotDetected); Cocaine Screen,Urine Not Detected (NotDetected); Methadone Screen, Urine Not Detected (NotDetected); Opiate Screen,Urine Not Detected (NotDetected); Oxycodone Screen, Urine Not Detected (NotDetected); Phencyclidine Screen,Urine Not Detected (NotDetected); Tricyclic Antidepressant,Urine Not Detected (NotDetected); Urn Cannabinoid Scrn Not Detected (NotDetected)
--- NOTE | 2023-01-09 16:32 | ED ---
Psych HPI - General Chief Complaint: Psychiatric Symptoms Stated Complaint: Mental Health Time Seen by Provider: 01/09/23 15:10 Source: EMS, RN notes reviewed, old records reviewed Mode of arrival: EMS Limitations: no limitations - History of Present Illness Initial Comments: This is a 47-year-old female to the ER for evaluation patient coming in for ps ychiatric illness although. Patient is well-known to our Facility for psychiatric evaluation and treatment. Does deny, homicidal or suicidal thoughts but does have history of underlying psychiatric illness and was not taking her medications, patient is brought in by EMS under concern of MD Complaint: other (Patient's not medically appropriate to make her decisions) -: unknown Associated Psychiatric Symptoms: none History of same: Yes Quality: constant Improves With: none Context: not taking psychiatric medications Associated Symptoms: denies other symptoms Treatments Prior to Arrival: none - Related Data Home Medications Medication Instructions Recorded Confirmed Hydroxychloroquine Sulfate 200 mg PO BID 04/11/21 01/09/23 [Plaquenil] Docusate [Colace] 100 mg PO DAILY PRN 10/31/22 01/09/23 Psyllium Husk 100% [Metamucil 6 gm PO BID PRN 10/31/22 01/09/23 Packet] ARIPiprazole [Abilify] 15 mg PO DAILY 01/04/23 01/09/23 Clotrimazole [Clotrimazole AF] 1 applic TOPICAL BID 01/04/23 01/09/23 DULoxetine HCL [Cymbalta] 30 mg PO DAILY 01/04/23 01/09/23 Ibuprofen [Motrin] 600 mg PO TID PRN 01/04/23 01/09/23 Multivitamins, Thera [Multivitamin 1 tab PO DAILY 01/04/23 01/09/23 (formulary)] Nicotine Polacrilex [Nicotine Gum] 4 mg BUCCAL QID PRN 01/04/23 01/09/23 diphenhydrAMINE HCL [Benadryl] 25 mg PO BID PRN 01/04/23 01/09/23 lamoTRIgine [LaMICtal] 150 mg PO BID 01/04/23 01/09/23 tiZANidine [Zanaflex] 2 mg PO Q8H PRN 01/04/23 01/09/23 traZODone HCL [Desyrel] 100 mg PO HS 01/04/23 01/09/23 ARIPiprazole IM SYRINGE [Abilify 400 mg IM Q30D 01/09/23 01/09/23 Maintena Syringe] Propranolol [Inderal] 10 mg PO BID 01/09/23 01/09/23 Allergies Allergy/AdvReac Type Severity Reaction Status Date / Time carbamazepine [From Tegretol] Allergy Rash/Hives Verified 01/09/23 19:10 hydrocodone [From Vicodin] Allergy Dyspnea Verified 01/09/23 19:10 lithium Allergy Rash/Hives Verified 01/09/23 19:10 Sulfa (Sulfonamide Allergy Rash/Hives/ Verified 01/09/23 19:10 Antibiotics) Itchy ziprasidone [From Geodon] Allergy Unknown Verified 01/09/23 19:10 lorazepam [From Ativan] AdvReac blackouts Verified 01/09/23 19:10 1st generation antipsychotics AdvReac See Comment Uncoded 01/04/23 12:22 Review of Systems ROS Statement: Those systems with pertinent positive or pertinent negative responses have been documented in the HPI. ROS Other: All systems not noted in ROS Statement are negative. Past Medical History Past Medical History: No Reported History Additional Past Medical History / Comment(s): Sepsis, Lupus, History of Any Multi-Drug Resistant Organisms: None Reported Past Surgical History: No Surgical Hx Reported Past Anesthesia/Blood Transfusion Reactions: No Reported Reaction Past Psychological History: Bipolar, Depression Smoking Status: Current every day smoker Past Alcohol Use History: None Reported Past Drug Use History: None Reported - Past Family History Family Family Medical History: Hypertension General Exam Limitations: no limitations General appearance: alert, in no apparent distress Head exam: Present: atraumatic, normocephalic, normal inspection Eye exam: Present: normal appearance, PERRL, EOMI. Absent: scleral icterus, co njunctival injection, periorbital swelling ENT exam: Present: normal exam, mucous membranes moist Neck exam: Present: normal inspection. Absent: tenderness, meningismus, lymphadenopathy Respiratory exam: Present: normal lung sounds bilaterally. Absent: respiratory distress, wheezes, rales, rhonchi, stridor Cardiovascular Exam: Present: regular rate, normal rhythm, normal heart sounds. Absent: systolic murmur, diastolic murmur, rubs, gallop, clicks GI/Abdominal exam: Present: soft, normal bowel sounds. Absent: distended, tenderness, guarding, rebound, rigid Extremities exam: Present: normal inspection, full ROM, normal capillary refill. Absent: tenderness, pedal edema, joint swelling, calf tenderness Back exam: Present: normal inspection Neurological exam: Present: alert, oriented X3, CN II-XII intact Psychiatric exam: Present: normal affect, normal mood Skin exam: Present: warm, dry, intact, normal color. Absent: rash Course Vital Signs 01/09/23 14:59 Temperature 98.1 F Pulse Rate 118 H Respiratory 18 Rate Blood Pressure 140/80 O2 Sat by Pulse 98 Oximetry - Reevaluation(s) Reevaluation #1: 01/09/23 19:22 Medical records reviewed Reevaluation #2: 01/09/23 19:23 Medical clear for psychiatric evaluation Medical Decision Making - Medical Decision Making 47 female was seen and evaluated by psychiatry here in the ER will be admitted for psychiatric evaluation and treatment - Lab Data Lab Results 01/09/23 01/09/23 Range/Units 15:36 19:09 Urine Opiates Screen Not Detected (NotDetected) Ur Oxycodone Screen Not Detected (NotDetected) Urine Methadone Screen Not Detected (NotDetected) Ur Propoxyphene Screen Not Detected (NotDetected) Ur Barbiturates Screen Not Detected (NotDetected) U Tricyclic Antidepress Not Detected (NotDetected) Ur Phencyclidine Scrn Not Detected (NotDetected) Ur Amphetamines Screen Not Detected (NotDetected) U Methamphetamines Scrn Not Detected (NotDetected) U Benzodiazepines Scrn Not Detected (NotDetected) Urine Cocaine Screen Not Detected (NotDetected) U Marijuana (THC) Screen Not Detected (NotDetected) Coronavirus (PCR) Not Detected (Not Detectd) Disposition Clinical Impression: Depression, Psychosis, Acute delirium, Nicotine dependence, Cannabis use disorder, mild, abuse, Bipolar I disorder with chris Disposition: TRANSFER TO PSYCH HOSP/UNIT Condition: Fair Is patient prescribed a controlled substance at d/c from ED?: No
[2023-01-09] MEDS ORDERED: NICOTINE GUM (POLACRILEX) 2 MG GUM BUCCAL STA (17:27)
[2023-01-09] MEDS ORDERED: diphenhydrAMINE 25 MG CAP PO PRN (20:47)
[2023-01-09] MEDS ORDERED: DOCUSATE 100 MG CAP PO PRN (20:47)
[2023-01-09] MEDS ORDERED: PSYLLIUM HUSK 100% 6 GM PACKET PO PRN (20:47)
[2023-01-09] MEDS ORDERED: MAGNESIUM HYDROXIDE 2,400 MG/10 ML CUP PO PRN (20:52)
[2023-01-09] MEDS ORDERED: ACETAMINOPHEN TAB 325 MG TAB PO PRN (20:52)
[2023-01-09] MEDS ORDERED: MAG HYDROX/AL HYDROX/SIMETH 30 ML CUP PO PRN (20:52)
[2023-01-09] MEDS ORDERED: OLANZapine 5 MG TAB PO PRN (21:02)
[2023-01-09] MEDS ORDERED: OLANZapine 10 MG VIAL IM PRN (21:02)
[2023-01-09] MEDS: HYDROXYCHLOROQUINE SULFATE 200 MG TAB PO SCH (22:47)
[2023-01-09] MEDS: ARIPiprazole 15 MG TAB PO SCH (22:47)
[2023-01-09] MEDS: lamoTRIgine 100 MG TAB PO SCH (22:47)
[2023-01-09] MEDS: traZODone HCL 100 MG TAB PO SCH (22:47)
[2023-01-09] MEDS: NICOTINE GUM (POLACRILEX) 2 MG GUM BUCCAL PRN (22:48)
[2023-01-09] MEDS: tiZANidine 4 MG TAB PO PRN (23:30)
[2023-01-10] MEDS: NICOTINE GUM (POLACRILEX) 2 MG GUM BUCCAL PRN ×4 (07:10→21:37)
[2023-01-10] MEDS: lamoTRIgine 100 MG TAB PO SCH ×2 (08:11→21:37)
[2023-01-10] MEDS: MULTIVITAMINS, THERA 1 EACH TAB PO SCH (08:11)
[2023-01-10] MEDS: HYDROXYCHLOROQUINE SULFATE 200 MG TAB PO SCH ×2 (08:11→21:37)
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
[2023-01-10 12:13] LABS: Basophils % (A) 0 %; Eosinophils % (A) 1 %; HCT 41.1 % (34.0-46.0); HGB 13.8 gm/dL (11.4-16.0); Lymphocytes # (A) 0.9 k/uL (1.0-4.8); Lymphocytes % (A) 17 %; MCH 30.1 pg (25.0-35.0); MCHC 33.5 g/dL (31.0-37.0); MCV 89.6 fL (80.0-100.0); Mean Platelet Volume 8.1; Monocytes # (A) 0.4 k/uL (0-1.0); Monocytes % (A) 8 %; Neutrophils # (A) 3.7 k/uL (1.3-7.7); Neutrophils % (A) 73 %; Platelet Count 262 k/uL (150-450); RBC 4.58 m/uL (3.80-5.40); RDW 12.9 % (11.5-15.5); WBC 5.1 k/uL (3.8-10.6)
[2023-01-10 12:26] LABS: ALT 21 U/L (4-34); AST 25 U/L (14-36); African American GFR (CKD) >90 (>60 ml/min/1.73 sqM); Albumin 4.2 g/dL (3.5-5.0); Alkaline Phosphatase 53 U/L (38-126); Anion Gap 10 mmol/L; Blood Urea Nitrogen 11 mg/dL (7-17); Calcium 8.9 mg/dL (8.4-10.2); Carbon Dioxide 22 mmol/L (22-30); Chloride 103 mmol/L (98-107); Glucose 96 mg/dL (74-99); Non-African American GFR(CKD) >90 (>60 ml/min/1.73 sqM); Potassium 4.6 mmol/L (3.5-5.1); Sodium 135 mmol/L (137-145); Total Bilirubin 0.3 mg/dL (0.2-1.3)
[2023-01-10 17:09] LABS: Chol/HDL Ratio 3.73 Ratio; LDL Cholesterol,Calculated 73.3 mg/dL (0.0-131.0)
[2023-01-10] MEDS: traZODone HCL 100 MG TAB PO SCH (21:37)
[2023-01-10] MEDS: ARIPiprazole 15 MG TAB PO SCH (21:37)
--- NOTE | 2023-01-10 22:15 | P.CONS ---
History of Present Illness - Reason for Consult Consult date: 01/10/23 - History of Present Illness The patient is a 47-year-old female with a PMH of bipolar disorder and SLE who presents to the emergency room with complaints of depression and suicidal ideation. The patient was admitted to the mental health unit where she was seen and evaluated. The patient states that she wishes to split up from her and she believes that they're no longer a match. She states that she converted to being a Congregation some years ago and that her did not. She wishes to find separate house and and does not wish to live with them any further. She denied any physical complaints at the time of interview. She denied experiencing chest discomfort, shortness of breath, fever, chills, cough, nausea, vomiting, abdominal pain, diarrhea. Patient reports quitting tobacco 3 months ago and previously was smoking as much as 2 packs per day. Review of systems: Pertinent positives and negatives as discussed in HPI, a complete review of systems was performed and all other systems are negative. Physical examination: General: non toxic, no distress, appears at stated age, obese Derm: no unusual rashes/lesions, no unusual ecchymoses, warm, dry Head: atraumatic, normocephalic, symmetric Eyes: EOMI, no lid lag, anicteric sclera ENT: Nose and ears atraumatic, no thrush, no pharyngeal erythema Neck: trachea midline, supple Mouth: no lip lesion, mucus membranes moist Cardiovascular: S1S2 reg, no murmur, no edema Lungs: CTA bilateral, no rhonchi, no rales , no accessory muscle use Abdominal: soft, nontender to palpation, no guarding Ext: no gross muscle atrophy, no contractures, Neuro: No gross focal neuro deficits noted Psych: Alert, oriented, appropriate affect Assessment: Chronic SLE Bipolar disorder Prediabetes Imaging: None performed Data Review: Laboratory evaluation reviewed with WBC count 5.1, hemoglobin 13.8, platelets 262, sodium 135, BUN 11, creatinine 0.58, A1c 6.3, urine toxicology unremarkable. Plan: Patient advised on lifestyle modifications regarding prediabetes Continue home medications Plaquenil Defer management of bipolar disorder to primary psychiatry service Thank you for allowing us to participate in the care of this patient. We will follow peripherally. Do not hesitate to contact us with questions. Someone can be reached from the [facility] hospitalist group at all hours of the day at [phone]. Past Medical History Past Medical History: No Reported History Additional Past Medical History / Comment(s): Sepsis, Lupus, History of Any Multi-Drug Resistant Organisms: None Reported Past Surgical History: No Surgical Hx Reported Past Anesthesia/Blood Transfusion Reactions: No Reported Reaction Past Psychological History: Bipolar, Depression Additional Psychological History / Comment(s): Having positive symptms of her illness. Smoking Status: Current some day smoker Past Alcohol Use History: None Reported Past Drug Use History: None Reported - Past Family History Family Family Medical History: Hypertension Medications and Allergies Home Medications Medication Instructions Recorded Confirmed Type Hydroxychloroquine Sulfate 200 mg PO BID 04/11/21 01/09/23 History [Plaquenil] Docusate [Colace] 100 mg PO DAILY PRN 10/31/22 01/09/23 History Psyllium Husk 100% [Metamucil 6 gm PO BID PRN 10/31/22 01/09/23 History Packet] ARIPiprazole [Abilify] 15 mg PO DAILY 01/04/23 01/09/23 History Clotrimazole [Clotrimazole AF] 1 applic TOPICAL BID 01/04/23 01/09/23 History DULoxetine HCL [Cymbalta] 30 mg PO DAILY 01/04/23 01/09/23 History Ibuprofen [Motrin] 600 mg PO TID PRN 01/04/23 01/09/23 History Multivitamins, Thera [Multivitamin 1 tab PO DAILY 01/04/23 01/09/23 History (formulary)] Nicotine Polacrilex [Nicotine Gum] 4 mg BUCCAL QID PRN 01/04/23 01/09/23 History diphenhydrAMINE HCL [Benadryl] 25 mg PO BID PRN 01/04/23 01/09/23 History lamoTRIgine [LaMICtal] 150 mg PO BID 01/04/23 01/09/23 History tiZANidine [Zanaflex] 2 mg PO Q8H PRN 01/04/23 01/09/23 History traZODone HCL [Desyrel] 100 mg PO HS 01/04/23 01/09/23 History ARIPiprazole IM SYRINGE [Abilify 400 mg IM Q30D 01/09/23 01/09/23 History Maintena Syringe] Propranolol [Inderal] 10 mg PO BID 01/09/23 01/09/23 History Allergies Allergy/AdvReac Type Severity Reaction Status Date / Time carbamazepine [From Tegretol] Allergy Rash/Hives Verified 01/09/23 19:10 hydrocodone [From Vicodin] Allergy Dyspnea Verified 01/09/23 19:10 lithium Allergy Rash/Hives Verified 01/09/23 19:10 Sulfa (Sulfonamide Allergy Rash/Hives/ Verified 01/09/23 19:10 Antibiotics) Itchy ziprasidone [From Geodon] Allergy Unknown Verified 01/09/23 19:10 lorazepam [From Ativan] AdvReac blackouts Verified 01/09/23 19:10 1st generation antipsychotics AdvReac See Comment Uncoded 01/04/23 12:22 Physical Exam Vitals: Vital Signs Temp Pulse Resp BP Pulse Ox 01/10/23 06:31 97.9 F 94 15 114/54 01/10/23 00:03 97.6 F 113 H 18 132/81 97 Intake and Output 01/10/23 01/10/23 01/10/23 06:59 14:59 22:59 Other: Weight 82.917 kg Results CBC & Chem 7: 01/10/23 11:09 01/10/23 11:09 Labs: Abnormal Lab Results - Last 24 Hours (Table) 01/10/23 01/10/23 01/10/23 Range/Units 11:09 11:09 11:09 Lymphocytes # 0.9 L (1.0-4.8) k/uL Sodium 135 L (137-145) mmol/L Hemoglobin A1c 6.3 H (0.0-6.0) % Triglycerides 241.00 H (0.00-149.00) mg/dL VLDL Cholesterol, Calc 48.20 H (5.00-40.00) mg/dL
[2023-01-11] MEDS: NICOTINE GUM (POLACRILEX) 2 MG GUM BUCCAL PRN ×4 (07:19→21:04)
[2023-01-11] MEDS: lamoTRIgine 100 MG TAB PO SCH ×2 (08:43→21:00)
[2023-01-11] MEDS: HYDROXYCHLOROQUINE SULFATE 200 MG TAB PO SCH ×2 (08:44→21:01)
[2023-01-11] MEDS: MULTIVITAMINS, THERA 1 EACH TAB PO SCH (08:44)
--- NOTE | 2023-01-11 10:22 | P.PN ---
Progress Note - Text Progress Note Date: 01/11/23 S&O: Patient was seen in rounds. She is calm and cooperative. She takes her medications and attends groups. She does not have any new or specific complaints. She takes her medications and denies any adverse effects. Today she said [facility] She said she does not get along very well with her and like to be elevated from him. The treatment team members had told me yesterday that she was in the alf in the past and she didn't stay there for to long and went back to live with her . This is a white ambulatory female with good hygiene. She does not show any psychomotor agitation or retardation. Her speech is spontaneous relevant and goal-directed. Mood is euthymic to cheerful and affect is appropriate. She denies current hallucinations and delusional thinking. She also denies suicide and homicide thoughts. Her sensorium is clear. A&P: Continue current medications groups and other therapies.
[2023-01-11] MEDS: tiZANidine 4 MG TAB PO PRN (17:20)
[2023-01-11] MEDS: ARIPiprazole 15 MG TAB PO SCH (21:01)
[2023-01-11] MEDS: traZODone HCL 100 MG TAB PO SCH (21:02)
[2023-01-12] MEDS: lamoTRIgine 100 MG TAB PO SCH ×2 (07:59→20:53)
[2023-01-12] MEDS: HYDROXYCHLOROQUINE SULFATE 200 MG TAB PO SCH ×2 (07:59→20:53)
[2023-01-12] MEDS: MULTIVITAMINS, THERA 1 EACH TAB PO SCH (07:59)
[2023-01-12] MEDS: NICOTINE GUM (POLACRILEX) 2 MG GUM BUCCAL PRN ×4 (07:59→20:56)
[2023-01-12] MEDS: hydrOXYzine HCL 25 MG TAB PO SCH ×2 (16:23→20:53)
[2023-01-12] MEDS: ARIPiprazole 15 MG TAB PO SCH (20:52)
[2023-01-12] MEDS: traZODone HCL 100 MG TAB PO SCH (20:53)
[2023-01-13] MEDS: lamoTRIgine 100 MG TAB PO SCH ×2 (08:56→20:46)
[2023-01-13] MEDS: HYDROXYCHLOROQUINE SULFATE 200 MG TAB PO SCH ×2 (08:56→20:46)
[2023-01-13] MEDS: hydrOXYzine HCL 25 MG TAB PO SCH (08:57)
[2023-01-13] MEDS: MULTIVITAMINS, THERA 1 EACH TAB PO SCH (08:57)
[2023-01-13] MEDS: NICOTINE GUM (POLACRILEX) 2 MG GUM BUCCAL PRN ×3 (12:00→22:15)
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
[2023-01-13] MEDS ORDERED: hydrOXYzine HCL 25 MG TAB PO PRN (14:31)
[2023-01-13] MEDS ORDERED: OLANZapine 5 MG TAB PO PRN (14:36)
[2023-01-13] MEDS ORDERED: OLANZapine 10 MG VIAL IM PRN (14:37)
--- NOTE | 2023-01-13 14:48 | P.PN ---
Progress Note - Text Progress Note Date: 01/13/23 Interval History: Patient was seen wandering the hallways and was agreeable to speak with personal lines underwriter in the office, however she appears more irritable and antagonistic today. She appears to be an unreliable historian today. She reports she doesn't want to take the Vistaril because it makes her cry, however she was reminded she was crying yesterday before the Vistaril was started and she changes her mind and states she wants to take it again. She reports she doesn't feel comfortable around another patient on the unit, appears to have very poor insight and to externalize blame. She appeared more paranoid today and reports "someone" was in her room last night so she wrote a complaint today for it to be investigated. There were papers (from group) underneath her head when she woke up this morning and does not recall those papers being there when she went to sleep, and also claims other papers were missing. Her insight and judgment appear poor. We reviewed her past medications in the chart and she becomes more irritable and states she doesn't need any more medications. She claims she was told she could be discharged yesterday, however this was not discussed with her yesterday. Reviewed patient concerns about another patient with nurses today. Staff reports patient appears more delusional and irritable today as well. Overnight records show patient slept about 6 hours. Mental Status Exam: General Appearance: Patient appears to be stated age, dressed in clean casual attire, adequate hygiene and grooming. Behavior: Patient is seated without any agitated behavior, but is loudly chewing her gun and is irritable. Speech: Patient's speech is fluent, with condescending/accusatory tone, but non- pressured. Mood/Affect: Mood is irritable, affect is labile. Suicidality/Homicidality: Patient denies having any suicidal or homicidal ideation intent or plan. Perceptions: Patient denies any visual hallucinations and denies any auditory hallucinations. Though content/process: There is evidence of paranoid delusional thought content, and thought process is loosely organized. Memory and concentration: AOX3, grossly intact for the purposes of this session Judgment and insight: Poor Assessment Bipolar I disorder, current episode mixed with psychotic features Cannabis use disorder, unspecified Tobacco use disorder, unspecified Plan: -Patient continues to meet criteria for inpatient psychiatric admission for symptom stabilization and safety. Patient is on a court order for mental health treatment. -Medications: Patient received Abilify Maintena 400 mg IM q4 weeks on 12/22/22; next injection has been ordered for 01/19/23. Discontinue oral Abilify since this was likely to bridge onto her Abilify Maintena. Start Zyprexa Zydis 5 mg QHS for psychosis/mood. Restart Hydroxyzine 25 mg QID PRN for anxiety. Continue Lamictal 150 mg BID for mood stabilization. Continue Trazodone 100 mg QHS for sleep. -When necessary Zyprexa 5 mg IM/po Q6H PRN for agitation or acute psychosis. -NRT - nicotine patch -SW on board for discharge planning. Encouraged the patient to participate in milieu.
[2023-01-13] MEDS: OLANZapine ODT 5 MG TAB PO SCH (20:46)
[2023-01-13] MEDS: traZODone HCL 100 MG TAB PO SCH (20:46)
[2023-01-13] MEDS ORDERED: ARIPiprazole 5 MG TAB PO SCH (21:00)
[2023-01-14] MEDS: NICOTINE GUM (POLACRILEX) 2 MG GUM BUCCAL PRN ×4 (07:37→20:56)
[2023-01-14] MEDS: HYDROXYCHLOROQUINE SULFATE 200 MG TAB PO SCH ×2 (08:58→20:56)
[2023-01-14] MEDS: MULTIVITAMINS, THERA 1 EACH TAB PO SCH (08:59)
[2023-01-14] MEDS: lamoTRIgine 100 MG TAB PO SCH ×2 (08:59→20:56)
[2023-01-14] MEDS ORDERED: WATER FOR INJECTION, STERILE 10 ML IV ONE (11:07)
[2023-01-14] MEDS: tiZANidine 4 MG TAB PO PRN ×3 (14:02→21:21)
--- NOTE | 2023-01-14 20:00 | P.PN ---
Progress Note - Text Progress Note Date: 01/14/23 Interval History: Patient was seen wandering the hallways and is somewhat intrusive. She continues to be an unreliable historian today. She refused her Zyprexa 5 mg QHS last night, but today she required Zyprexa 5 mg IM x 1 due to psychosis and agitation, getting into a verbal altercation with a peer. She appears to be intrusive, delusional and accusatory, accuses multiple people on the unit of not likely her. She is suspicious and mistrusting of staff and peers on the unit. She is fixated on her medications. She claims to be "allergic: to all antipsychotics except for Abilify and Rexulti, and would like to start Rexulti. We discussed that Rexulti and Abilify are similar medications. She claims the Zyprexa causes her "shifting" and he appears to shift side to side inconsistently during assessment which appears to be a self-induced volitional behavior rather than a true side effect. Overnight records show patient slept about 6 hours again last night. Insight and judgment are poor. Mental Status Exam: General Appearance: Patient appears to be stated age, dressed in clean casual attire, adequate hygiene and grooming. Behavior: Patient is standing without any agitated behavior, but is loudly chewing her gum and shifting side to side. Speech: Patient's speech is fluent, with condescending/accusatory tone, but non- pressured. Mood/Affect: Mood is irritable, affect is constricted. Suicidality/Homicidality: Patient denies having any suicidal or homicidal idea tion intent or plan. Perceptions: Patient denies any visual hallucinations and denies any auditory hallucinations. Though content/process: There is evidence of paranoid delusional thought content, and thought process is loosely organized. Memory and concentration: AOX3, grossly intact for the purposes of this session Judgment and insight: Poor Assessment Bipolar I disorder, current episode mixed with psychotic features Cannabis use disorder, unspecified Tobacco use disorder, unspecified Plan: -Patient continues to meet criteria for inpatient psychiatric admission for symptom stabilization and safety. Patient is on a court order for mental health treatment. -Medications: Patient received Abilify Maintena 400 mg IM q4 weeks on 12/22/22; next injection has been ordered for 01/19/23. Continue Zyprexa Zydis 5 mg QHS for psychosis/mood, with IM backup for refusal of oral Zyprexa. Continue Hydroxyzine 25 mg QID PRN for anxiety. Continue Lamictal 150 mg BID for mood stabilization. Continue Trazodone 100 mg QHS for sleep. - Will plan to contact her outpatient psychiatrist at [facility] on Sunday to clarify medication allergies. -When necessary Zyprexa 5 mg IM/po Q6H PRN for agitation or acute psychosis. -NRT - nicotine patch -SW on board for discharge planning. Encouraged the patient to participate in milieu.
[2023-01-14] MEDS: traZODone HCL 100 MG TAB PO SCH (20:56)
[2023-01-14] MEDS: OLANZapine ODT 5 MG TAB PO SCH (20:56)
[2023-01-15] MEDS: NICOTINE GUM (POLACRILEX) 2 MG GUM BUCCAL PRN ×3 (07:11→20:39)
[2023-01-15] MEDS: lamoTRIgine 100 MG TAB PO SCH ×2 (08:41→20:34)
[2023-01-15] MEDS: HYDROXYCHLOROQUINE SULFATE 200 MG TAB PO SCH ×2 (08:41→20:34)
[2023-01-15] MEDS: MULTIVITAMINS, THERA 1 EACH TAB PO SCH (08:41)
[2023-01-15] MEDS: tiZANidine 4 MG TAB PO PRN ×2 (08:44→21:43)
--- NOTE | 2023-01-15 18:28 | P.PN ---
Progress Note - Text Progress Note Date: 01/15/23 Interval History: [facility] talking with her social media assistant. She refused her Zyprexa 5 mg QHS again last night and was given Zyprexa 5 mg IM x 1 due to refusal of oral Zyprexa. Today she appears calmer since taking the Zyprexa, however she continues to fixate on her social situation, her medications, and today states she wants to go to [facility]. Her insight and judgment remain poor. She continues to claim "allergies" to multiple me dications, however she appears to be tolerating her current medications well. Overnight records show patient slept through the night with about 8.5 hours last night, and about 8 hours the previous night. Mental Status Exam: General Appearance: Patient appears to be stated age, dressed in clean casual attire, adequate hygiene and grooming. Behavior: Patient is seated without any agitated behavior, is loudly chewing her gum. Speech: Patient's speech is fluent, but non-pressured. Mood/Affect: Mood is improving, affect is constricted. Suicidality/Homicidality: Patient denies having any suicidal or homicidal ideation intent or plan. Perceptions: Patient denies any visual hallucinations and denies any auditory hallucinations. Though content/process: There is evidence of paranoid delusional thought content, and thought process is obsessive. Memory and concentration: AOX3, grossly intact for the purposes of this session Judgment and insight: Poor Assessment Bipolar I disorder, current episode mixed with psychotic features Cannabis use disorder, unspecified Tobacco use disorder, unspecified Plan: -Patient continues to meet criteria for inpatient psychiatric admission for symptom stabilization and safety. Patient is on a court order for mental health treatment. -Medications: Patient received Abilify Maintena 400 mg IM q4 weeks on 12/22/22; next injection has been ordered for 01/19/23. Continue Zyprexa Zydis 5 mg QHS for psychosis/mood, with IM backup for refusal of oral Zyprexa. She appears to be tolerating this well and is getting benefit from this medication without side effects. Continue Hydroxyzine 25 mg QID PRN for anxiety. Continue Lamictal 150 mg BID for mood stabilization. Continue Trazodone 100 mg QHS for sleep. -Records from [facility] reviewed. -When necessary Zyprexa 5 mg IM/po Q6H PRN for agitation or acute psychosis. -NRT - nicotine patch -SW on board for discharge planning. Encouraged the patient to participate in milieu.
[2023-01-15] MEDS: traZODone HCL 100 MG TAB PO SCH (20:35)
[2023-01-15] MEDS: OLANZapine ODT 5 MG TAB PO SCH (20:41)
[2023-01-15] MEDS: IBUPROFEN 600 MG TAB PO PRN (21:54)
[2023-01-16] MEDS: HYDROXYCHLOROQUINE SULFATE 200 MG TAB PO SCH ×2 (08:25→21:06)
[2023-01-16] MEDS: lamoTRIgine 100 MG TAB PO SCH ×2 (08:25→21:05)
[2023-01-16] MEDS: NICOTINE GUM (POLACRILEX) 2 MG GUM BUCCAL PRN ×4 (08:25→21:11)
[2023-01-16] MEDS: MULTIVITAMINS, THERA 1 EACH TAB PO SCH (08:25)
--- NOTE | 2023-01-16 10:45 | P.PN ---
Progress Note - Text Progress Note Date: 01/16/23 Interval History: Patient was seen walking the hallways and was fairly persistent on speaking with principal technical writer in the office today. Patient states that "my isn't what she said he was". She was fairly focused on speaking negatively about her today. She was also fairly tearful during the interview. She states that she does not know where she will be going upon discharge. She claims that she had a difficult time sleeping last night and requested to have her trazodone increased. She did appear to be somewhat labile during conversation. She was agreeable to have her Lamictal increased. Claims that her depression and anxiety of been improving. She was fairly calm and polite with principal technical writer and gave him several complements. She claims that she is hopeful about getting better. States that she will try to go to more groups. She claims that she is not having any suicidal or homicidal ideations intent or plan. Denying any auditory or visual hallucinations today. Patient has been taking her medications. Mental Status Exam: General Appearance: Patient appears to be stated age, dressed in clean casual attire, adequate hygiene and grooming. Carrying various papers in a folder. Behavior: Patient is seated without any agitated behavior, is chewing her gum. Speech: Patient's speech is fluent, but non-pressured. Mood/Affect: Mood is improving, affect is tearful at times, labile. Suicidality/Homicidality: Patient denies having any suicidal or homicidal ideation intent or plan. Perceptions: Patient denies any visual hallucinations and denies any auditory hallucinations. Though content/process: Patient is more goal oriented today, and thought process is obsessive about her medications and . Memory and concentration: AOX3, grossly intact for the purposes of this session Judgment and insight: Likely Poor, improving mildly Assessment Bipolar I disorder, current episode mixed with psychotic features Cannabis use disorder Tobacco use disorder Plan: -Patient continues to meet criteria for inpatient psychiatric admission for symptom stabilization and safety. Patient is on a court order for mental health treatment. -Medications: Patient received Abilify Maintena 400 mg IM q4 weeks on 12/22/22; next injection has been ordered for 01/19/23. Continue Zyprexa Zydis 5 mg QHS for psychosis/mood, with IM backup for refusal of oral Zyprexa. She appears to be tolerating this well and is getting benefit from this medication without side effects. Continue Hydroxyzine 25 mg QID PRN for anxiety. increase Lamictal 200 mg BID for mood stabilization. increase Trazodone 150 mg QHS for sleep. consider antidepressant if patient is not improving -Records from [facility] reviewed. -When necessary Zyprexa 5 mg IM/po Q6H PRN for agitation or acute psychosis. -NRT - nicotine patch -SW on board for discharge planning. Encouraged the patient to participate in milieu. will speak with team about disposition for patient.
[2023-01-16] MEDS: tiZANidine 4 MG TAB PO PRN (11:33)
[2023-01-16] MEDS ORDERED: LORazepam 1 MG TAB PO STA (17:29)
[2023-01-16] MEDS: IBUPROFEN 600 MG TAB PO PRN (18:25)
[2023-01-16] MEDS: traZODone HCL 50 MG TAB PO SCH (21:05)
[2023-01-16] MEDS: OLANZapine ODT 5 MG TAB PO SCH (21:06)
[2023-01-17] MEDS: NICOTINE GUM (POLACRILEX) 2 MG GUM BUCCAL PRN ×4 (07:37→20:27)
[2023-01-17] MEDS: MULTIVITAMINS, THERA 1 EACH TAB PO SCH (08:32)
[2023-01-17] MEDS: lamoTRIgine 100 MG TAB PO SCH ×2 (08:32→21:26)
[2023-01-17] MEDS: HYDROXYCHLOROQUINE SULFATE 200 MG TAB PO SCH ×2 (08:32→21:26)
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
[2023-01-17] MEDS: LORazepam 1 MG TAB PO PRN (11:25)
[2023-01-17] MEDS ORDERED: ARIPiprazole IM SYRINGE 400 MG (NO CHARGE) PHARMACY STOCK IM ONE (12:00)
[2023-01-17] MEDS: traZODone HCL 50 MG TAB PO SCH (21:26)
[2023-01-18] MEDS: IBUPROFEN 600 MG TAB PO PRN ×2 (00:26→16:19)
[2023-01-18] MEDS: NICOTINE GUM (POLACRILEX) 2 MG GUM BUCCAL PRN ×5 (00:28→21:21)
[2023-01-18] MEDS: tiZANidine 4 MG TAB PO PRN ×2 (01:02→17:26)
[2023-01-18] MEDS: MULTIVITAMINS, THERA 1 EACH TAB PO SCH (09:41)
[2023-01-18] MEDS: lamoTRIgine 100 MG TAB PO SCH ×2 (09:41→21:21)
[2023-01-18] MEDS: HYDROXYCHLOROQUINE SULFATE 200 MG TAB PO SCH ×2 (09:41→21:21)
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
[2023-01-18] MEDS: LORazepam 1 MG TAB PO PRN (16:19)
[2023-01-18] MEDS: traZODone HCL 50 MG TAB PO SCH (21:21)
[2023-01-19] MEDS: NICOTINE GUM (POLACRILEX) 2 MG GUM BUCCAL PRN ×4 (06:36→21:02)
[2023-01-19] MEDS: lamoTRIgine 100 MG TAB PO SCH ×2 (07:59→21:02)
[2023-01-19] MEDS: MULTIVITAMINS, THERA 1 EACH TAB PO SCH (07:59)
[2023-01-19] MEDS: HYDROXYCHLOROQUINE SULFATE 200 MG TAB PO SCH ×2 (07:59→21:02)
[2023-01-19 10:35] VITALS: BMI 31.6
--- NOTE | 2023-01-19 10:53 | P.PN ---
Progress Note - Text Progress Note Date: 01/19/23 Interval History: Patient was seen walking the hallways and was fairly persistent on speaking with production underwriter in the office today. she claims that she is doing "fine" today and was requesting discharge today. she states that she wants to stay with her friend. she continues to speak negatively about her and claims that they should have . she continues to ramble at times, which appears to be nbaseline. she continues to speak in a childlike manner. she states that she is going to gr oups and continues to read her bible on the unit. states that she slept well last night. Claims that her depression and anxiety of been improving. She was fairly calm and polite today. She claims that she is not having any suicidal or homicidal ideations intent or plan. Denying any auditory or visual hallucinations today. Patient has been taking her medications denying any side effects. Mental Status Exam: General Appearance: Patient appears to be stated age, dressed in clean casual attire, adequate hygiene and grooming. Carrying various papers in a folder. Behavior: Patient is seated without any agitated behavior, is chewing her gum. Speech: Patient's speech is fluent, but non-pressured. Mood/Affect: Mood is improving, affect is less tearful. Suicidality/Homicidality: Patient denies having any suicidal or homicidal ideation intent or plan Perceptions: Patient denies any visual hallucinations and denies any auditory hallucinations Though content/process: Patient is more goal oriented today, and thought process. spoke more about childhood and . focused on discharge Memory and concentration: AOX3, grossly intact for the purposes of this session Judgment and insight: chronically Poor, improving mildly Assessment: Bipolar I disorder, current episode mixed with psychotic features Cannabis use disorder Tobacco use disorder Plan: -Patient continues to meet criteria for inpatient psychiatric admission for symptom stabilization and safety. Patient is on a court order for mental health treatment. -Medications: Patient received Abilify Maintena 400 mg IM q4 weeks on 01/17/23 Continue Hydroxyzine 25 mg QID PRN for anxiety. continue Lamictal 200 mg BID for mood stabilization. continue Trazodone 150 mg QHS for sleep. -When necessary Zyprexa 5 mg IM/po Q6H PRN for agitation or acute psychosis. -NRT - nicotine patch -SW on board for discharge planning. Encouraged the patient to participate in milieu. patient appealed her discharge with her insurance and currently awaiting investigation on whether or not to discharge patient.
[2023-01-19] MEDS ORDERED: ARIPiprazole IM 400 MG VIAL (NO COST) PHARMACY STOCK IM ONE (11:00)
[2023-01-19] MEDS: CARBAMIDE PEROXIDE 6.5% DROPS 15 ML BTL BOTH EARS SCH ×2 (14:24→21:02)
[2023-01-19] MEDS: ESCITALOPRAM 10 MG TAB PO SCH (14:26)
[2023-01-19] MEDS: IBUPROFEN 600 MG TAB PO PRN (14:27)
[2023-01-19] MEDS: LORazepam 1 MG TAB PO PRN (14:27)
[2023-01-19] MEDS: tiZANidine 4 MG TAB PO PRN (14:52)
[2023-01-19] MEDS: traZODone HCL 50 MG TAB PO SCH (21:02)
[2023-01-20] MEDS: NICOTINE GUM (POLACRILEX) 2 MG GUM BUCCAL PRN ×3 (08:20→22:01)
[2023-01-20] MEDS: CARBAMIDE PEROXIDE 6.5% DROPS 15 ML BTL BOTH EARS SCH ×2 (08:49→20:58)
[2023-01-20] MEDS: lamoTRIgine 100 MG TAB PO SCH ×2 (08:49→20:57)
[2023-01-20] MEDS: ESCITALOPRAM 10 MG TAB PO SCH (08:49)
[2023-01-20] MEDS: MULTIVITAMINS, THERA 1 EACH TAB PO SCH (08:50)
[2023-01-20] MEDS: HYDROXYCHLOROQUINE SULFATE 200 MG TAB PO SCH ×2 (08:50→20:57)
[2023-01-20] MEDS: tiZANidine 4 MG TAB PO PRN ×2 (10:40→22:18)
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
[2023-01-20] MEDS: traZODone HCL 50 MG TAB PO SCH (20:57)
[2023-01-21] MEDS: NICOTINE GUM (POLACRILEX) 2 MG GUM BUCCAL PRN ×4 (07:18→21:07)
[2023-01-21] MEDS: MULTIVITAMINS, THERA 1 EACH TAB PO SCH (09:03)
[2023-01-21] MEDS: lamoTRIgine 100 MG TAB PO SCH ×2 (09:03→21:07)
[2023-01-21] MEDS: HYDROXYCHLOROQUINE SULFATE 200 MG TAB PO SCH ×2 (09:04→21:07)
[2023-01-21] MEDS: CARBAMIDE PEROXIDE 6.5% DROPS 15 ML BTL BOTH EARS SCH ×2 (09:05→21:09)
[2023-01-21] MEDS: ESCITALOPRAM 5 MG TAB PO SCH (09:05)
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
[2023-01-21] MEDS: LORazepam 1 MG TAB PO PRN (13:45)
[2023-01-21] MEDS: traZODone HCL 50 MG TAB PO SCH (21:07)
[2023-01-21] MEDS: tiZANidine 4 MG TAB PO PRN (22:22)
[2023-01-22] MEDS: NICOTINE GUM (POLACRILEX) 2 MG GUM BUCCAL PRN ×2 (06:00→11:26)
[2023-01-22 06:43] VITALS: BP 98/71; PULSE 97; RESP 18; TEMP 97.2
[2023-01-22] MEDS: CARBAMIDE PEROXIDE 6.5% DROPS 15 ML BTL BOTH EARS SCH (08:50)
[2023-01-22] MEDS: ESCITALOPRAM 5 MG TAB PO SCH (08:50)
[2023-01-22] MEDS: MULTIVITAMINS, THERA 1 EACH TAB PO SCH (08:50)
[2023-01-22] MEDS: HYDROXYCHLOROQUINE SULFATE 200 MG TAB PO SCH (08:50)
[2023-01-22] MEDS: lamoTRIgine 100 MG TAB PO SCH (08:50)
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
== END 2023-01-22 14:20 | disposition home or self-care (01) | DRG 885 ==
LOC: EC 14:57 → 3MHU 20:28
PROVIDERS: ADMIT Psychiatry & Neurology Psychiatry; ATTEND Psychiatry & Neurology Psychiatry
DX: F31.64 Bipolar disorder, current episode mixed, severe, with psychotic features (principal); F12.90 Cannabis use, unspecified, uncomplicated; Z87.891 Personal history of nicotine dependence; F41.9 Anxiety disorder, unspecified; I10 Essential (primary) hypertension; M32.9 Systemic lupus erythematosus, unspecified; R73.03 Prediabetes; Z79.899 Other long term (current) drug therapy; Z88.2 Allergy status to sulfonamides; Z20.822 Contact with and (suspected) exposure to COVID-19
CPT/HCPCS: 80053; 80061; 80306; 82075; 83036; 84443; 85025; 87635; 99285

== ENCOUNTER 2025-01-09 15:33 | Emergency (ER) | payer BC, MEDICARE ==
[2025-01-09 15:39] VITALS: TEMP 98.4
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
[2025-01-09 20:25] VITALS: BP 122/77; PULSE 123; RESP 18
== END 2025-01-09 20:26 | disposition home or self-care (01) ==
LOC: EC 15:33
DX: F60.0 Paranoid personality disorder (principal); F41.9 Anxiety disorder, unspecified; F17.200 Nicotine dependence, unspecified, uncomplicated; Z88.1 Allergy status to other antibiotic agents; Z88.2 Allergy status to sulfonamides; Z88.5 Allergy status to narcotic agent; Z88.8 Allergy status to other drugs, medicaments and biological substances
CPT/HCPCS: 82075; 99284

== ENCOUNTER 2025-01-13 16:37 | Emergency (ER) | payer BC, MEDICARE ==
[2025-01-13 16:50] VITALS: TEMP 98.1
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
[2025-01-13 17:43] LABS: Amphetamine Screen,Urine Not Detected (NotDetected); Barbiturate Screen,Urine Not Detected (NotDetected); Benzodiazepines Screen,Urine Not Detected (NotDetected); Cocaine Screen,Urine Not Detected (NotDetected); Methadone Screen, Urine Not Detected (NotDetected); Opiate Screen,Urine Not Detected (NotDetected); Oxycodone Screen, Urine Not Detected (NotDetected); Phencyclidine Screen,Urine Not Detected (NotDetected); Tricyclic Antidepressant,Urine Not Detected (NotDetected); Urn Cannabinoid Scrn Not Detected (NotDetected)
[2025-01-13 20:31] VITALS: BP 137/87; PULSE 101; RESP 16
== END 2025-01-13 20:35 | disposition home or self-care (01) ==
LOC: EC 16:37
DX: F41.9 Anxiety disorder, unspecified (principal); F17.200 Nicotine dependence, unspecified, uncomplicated; Z88.1 Allergy status to other antibiotic agents; Z88.2 Allergy status to sulfonamides; Z88.5 Allergy status to narcotic agent; Z88.8 Allergy status to other drugs, medicaments and biological substances
CPT/HCPCS: 80306; 82075; 99284

== ENCOUNTER 2025-02-11 19:18 | Emergency (ER) | payer MEDICARE, BC ==
[2025-02-11 19:24] VITALS: RESP 18; TEMP 98.8
--- NOTE | 2025-02-11 19:52 | ED ---
General Adult HPI - General Chief complaint: Psychiatric Symptoms Stated complaint: Mental Health Time Seen by Provider: 02/11/25 19:20 Source: patient, RN notes reviewed, old records reviewed Mode of arrival: ambulatory - History of Present Illness Initial comments: 49-year-old female presenting for mental health evaluation. Patient reports depression, suicidal ideation with plan to overdose on medication. She denies physical complaints. She states she is currently homeless and her will not let her come home. - Related Data Home Medications Medication Instructions Recorded Confirmed ARIPiprazole [Abilify] 15 mg PO HS 01/09/25 01/13/25 DULoxetine HCL [Cymbalta] 30 mg PO DAILY 01/09/25 01/13/25 Divalproex ER [Depakote ER] 250 mg PO DAILY 01/09/25 01/13/25 Divalproex ER [Depakote ER] 500 mg PO HS 01/09/25 01/13/25 Ibuprofen [Motrin] 800 mg PO TID PRN 01/09/25 01/13/25 Nicotine Gum (Polacrilex) 2 mg BUCCAL Q1H PRN 01/09/25 01/13/25 [Nicorette] tiZANidine [Zanaflex] 2 - 4 mg PO Q8H PRN 01/09/25 01/13/25 Previous Rx's Medication Instructions Recorded Hydroxychloroquine Sulfate 200 mg PO BID 30 Days #60 tab 01/18/23 [Plaquenil] Allergies Allergy/AdvReac Type Severity Reaction Status Date / Time carbamazepine [From Tegretol] Allergy Rash/Hives Verified 02/11/25 19:24 divalproex sodium Allergy Unknown Verified 02/11/25 19:24 [From Depakote] hydrocodone [From Vicodin] Allergy Dyspnea Verified 02/11/25 19:24 lithium Allergy Rash/Hives/Bubbles Verified 02/11/25 19:24 on Lips olanzapine [From Zyprexa] Allergy Unknown Verified 02/11/25 19:24 Sulfa (Sulfonamide Allergy Rash/Hives/ Verified 02/11/25 19:24 Antibiotics) Itchy ziprasidone [From Geodon] Allergy Unknown Verified 02/11/25 19:24 lorazepam [From Ativan] AdvReac memory Verified 02/11/25 19:24 loss, blackouts first generation psych meds AdvReac Severe Uncoded 02/11/25 19:24 stiffness Review of Systems ROS Statement: Those systems with pertinent positive or pertinent negative responses have been documented in the HPI. ROS Other: All systems not noted in ROS Statement are negative. Past Medical History Past Medical History: No Reported History Additional Past Medical History / Comment(s): Sepsis, Lupus History of Any Multi-Drug Resistant Organisms: None Reported Past Surgical History: No Surgical Hx Reported Past Anesthesia/Blood Transfusion Reactions: No Reported Reaction Past Psychological History: Bipolar, Depression Smoking Status: Current some day smoker Past Alcohol Use History: None Reported Past Drug Use History: None Reported - Past Family History Family Family Medical History: Hypertension General Exam General appearance: alert, in no apparent distress Head exam: Present: atraumatic, normocephalic Eye exam: Present: normal appearance, PERRL ENT exam: Present: normal exam Neck exam: Present: normal inspection. Absent: tenderness, meningismus Respiratory exam: Present: normal lung sounds bilaterally. Absent: respiratory distress, wheezes Cardiovascular Exam: Present: regular rate, normal rhythm GI/Abdominal exam: Present: soft. Absent: distended, tenderness Neurological exam: Present: alert, oriented X3, CN II-XII intact. Absent: motor sensory deficit Psychiatric exam: Present: depressed, anxious, suicidal ideation Skin exam: Present: warm, dry, intact Course Vital Signs 02/11/25 19:19 Temperature 98.8 F Pulse Rate 108 H Respiratory 18 Rate Blood Pressure 138/73 O2 Sat by Pulse 98 Oximetry Medical Decision Making - Medical Decision Making Was pt. sent in by a medical professional or institution (, PA, PRISON TEACHER, urgent care, hospital, or [facility]...) When possible be specific @ -No Did you speak to anyone other than the patient for history (EMS, parent, family, police, friend...)? What history was obtained from this source @ -No Did you review nursing and triage notes (agree or disagree)? Why? @ -I reviewed and agree with nursing and triage notes Were old charts reviewed (outside hosp., previous admission, EMS record, old EKG, old radiological studies, urgent care reports/EKG's, [facility] records)? Report findings @ -No old charts were reviewed Differential Mental Health Depression, anxiety, bipolar, psychosis, schizophrenia, borderline personality, situational depression, adjustment disorder, behavioral disorder, brain tumor, malingering, substance abuse, encephalopathy, medication reaction, dementia, hypothyroidism, degenerative neurologic disorder, lupus.... This is not meant to be all-inclusive list EKG interpreted by me (3pts min.). @ -As above X-rays interpreted by me (1pt min.). @ -None done CT interpreted by me (1pt min.). @ -None done U/S interpreted by me (1pt. min.). @ -None done What testing was considered but not performed or refused? (CT, X-rays, U/S, labs)? Why? @ -None What meds were considered but not given or refused? Why? @ -None Did you discuss the management of the patient with other professionals (professionals i.e. , PA, PRISON TEACHER, lab, RT, psych nurse, child protective services social worker, design drafter chief, teacher, strategic intelligence officer, caseworker)? Give summary @Patient evaluated by EPS, felt to be safe for discharge with close follow-up with mobile crisis tomorrow Was smoking cessation discussed for >3mins.? @ -No Was critical care preformed (if so, how long)? @ -No Were there social determinants of health that impacted care today? How? (Homelessness, low income, unemployed, alcoholism, drug addiction, transportation, low edu. Level, literacy, decrease access to med. care, correction, rehab)? @ -No Was there de-escalation of care discussed even if they declined (Discuss DNR or withdrawal of care, Hospice)? DNR status @ -No What co-morbidities impacted this encounter? (DM, HTN, Smoking, COPD, CAD, Cancer, CVA, ARF, Chemo, Hep., AIDS, mental health diagnosis, sleep apnea, morbid obesity)? @ -Depression Was patient admitted / discharged? Hospital course, mention meds given and route, prescriptions, significant lab abnormalities, going to OR and other pertinent info. @ -Patient was medically cleared and evaluated by EPS, felt to be safe for dis charge with close outpatient follow-up Undiagnosed new problem with uncertain prognosis? @ -No Drug Therapy requiring intensive monitoring for toxicity (Heparin, Nitro, Insulin, Cardizem)? @ -No Were any procedures done? @ -No Diagnosis/symptom? @ -Depression, suicidal ideation Acute, or Chronic, or Acute on Chronic? @Acute on chronic Uncomplicated (without systemic symptoms) or Complicated (systemic symptoms)? @ -Default Side effects of treatment? @ -No Exacerbation, Progression, or Severe Exacerbation? @ -No Poses a threat to life or bodily function? How? (Chest pain, [place], [place], pneumonia, PE, COPD, DKA, ARF, appy, cholecystitis, CVA, Diverticulitis, Homicidal, Suicidal, threat to staff... and all critical care pts) @ -Yes, self-harm - Lab Data Lab Results 02/11/25 Range/Units 19:36 Urine Opiates Screen Not Detected (NotDetected) Ur Oxycodone Screen Not Detected (NotDetected) Urine Methadone Screen Not Detected (NotDetected) Ur Barbiturates Screen Not Detected (NotDetected) U Tricyclic Antidepress Not Detected (NotDetected) Ur Phencyclidine Scrn Not Detected (NotDetected) Ur Amphetamines Screen Not Detected (NotDetected) U Methamphetamines Scrn Not Detected (NotDetected) U Benzodiazepines Scrn Not Detected (NotDetected) Urine Cocaine Screen Not Detected (NotDetected) U Marijuana (THC) Screen Not Detected (NotDetected) Disposition Clinical Impression: Depression Disposition: HOME SELF-CARE Condition: Fair Instructions (If sedation given, give patient instructions): Depression (ED) Is patient prescribed a controlled substance at d/c from ED?: No Referrals: Nonstaff,Physician [Primary Care Provider] - 1-2 days Time of Disposition: 22:18
[2025-02-11 20:00] LABS: Amphetamine Screen,Urine Not Detected (NotDetected); Barbiturate Screen,Urine Not Detected (NotDetected); Benzodiazepines Screen,Urine Not Detected (NotDetected); Cocaine Screen,Urine Not Detected (NotDetected); Methadone Screen, Urine Not Detected (NotDetected); Opiate Screen,Urine Not Detected (NotDetected); Oxycodone Screen, Urine Not Detected (NotDetected); Phencyclidine Screen,Urine Not Detected (NotDetected); Tricyclic Antidepressant,Urine Not Detected (NotDetected); Urn Cannabinoid Scrn Not Detected (NotDetected)
[2025-02-11 22:26] VITALS: BP 131/82; PULSE 100
== END 2025-02-11 22:29 | disposition home or self-care (01) ==
LOC: EC 19:18
DX: R45.851 Suicidal ideations (principal); F32.A Depression, unspecified; F17.200 Nicotine dependence, unspecified, uncomplicated; Z88.2 Allergy status to sulfonamides; Z88.5 Allergy status to narcotic agent; Z88.1 Allergy status to other antibiotic agents; Z88.8 Allergy status to other drugs, medicaments and biological substances
CPT/HCPCS: 80306; 82075; 99284

== ENCOUNTER 2025-03-06 11:34 | Inpatient (IN) | payer BC, MEDICARE ==
--- NOTE | 2025-03-06 12:27 | ED ---
Psych HPI - General Chief Complaint: Psychiatric Symptoms Stated Complaint: Mental health eval Time Seen by Provider: 03/06/25 12:25 Source: patient, RN notes reviewed, old records reviewed Mode of arrival: ambulatory Limitations: no limitations - History of Present Illness Initial Comments: 49-year-old female presented to the ER for evaluation of suicidal ideations. Patient states over the past week she has had progressively worsening thoughts of being better off . She states she has "a ton of guilt" as she has treated people badly. She states she did not treat her parents well or grateful for what they gave her. Patient reports she made a police report regarding her daughter not paying taxes on to money and feels guilty for doing this as she does not want her daughter to "go to detention". Patient states she did have a plan to "take all my pills". She denies actually taking these. She denies any homicidal ideations, drug or alcohol use or hallucinations. Patient repeatedly states the mental health system has "failed me". - Related Data Home Medications Medication Instructions Recorded Confirmed ARIPiprazole [Abilify] 15 mg PO HS 01/09/25 03/06/25 Nicotine Gum (Polacrilex) 2 mg BUCCAL Q1H PRN 01/09/25 03/06/25 [Nicorette] Divalproex [Depakote] 500 mg PO BID 03/06/25 03/06/25 Propranolol [Inderal] 10 mg PO HS 03/06/25 03/06/25 Previous Rx's Medication Instructions Recorded Hydroxychloroquine Sulfate 200 mg PO BID 30 Days #60 tab 01/18/23 [Plaquenil] Allergies Allergy/AdvReac Type Severity Reaction Status Date / Time carbamazepine [From Tegretol] Allergy Rash/Hives Verified 03/06/25 13:48 divalproex sodium Allergy Unknown - Verified 03/06/25 13:48 [From Depakote] see comment hydrocodone [From Vicodin] Allergy Dyspnea Verified 03/06/25 13:48 lithium Allergy Rash/Hives/Bubbles Verified 03/06/25 13:48 on Lips olanzapine [From Zyprexa] Allergy Unknown Verified 03/06/25 13:48 Sulfa (Sulfonamide Allergy Rash/Hives/ Verified 03/06/25 13:48 Antibiotics) Itchy ziprasidone [From Geodon] Allergy Unknown Verified 03/06/25 13:48 per [facility] lorazepam [From Ativan] AdvReac memory Verified 03/06/25 13:48 loss, blackouts first generation psych meds AdvReac Severe Uncoded 03/06/25 13:48 stiffness Review of Systems ROS Statement: Those systems with pertinent positive or pertinent negative responses have been documented in the HPI. ROS Other: All systems not noted in ROS Statement are negative. Past Medical History Past Medical History: No Reported History Additional Past Medical History / Comment(s): Sepsis, Lupus History of Any Multi-Drug Resistant Organisms: None Reported Past Surgical History: No Surgical Hx Reported Past Anesthesia/Blood Transfusion Reactions: No Reported Reaction Past Psychological History: Anxiety, Bipolar, Depression Smoking Status: Current every day smoker Past Alcohol Use History: None Reported Past Drug Use History: None Reported - Past Family History Family Family Medical History: Hypertension General Exam Limitations: no limitations General appearance: alert, in no apparent distress Respiratory exam: Present: normal lung sounds bilaterally. Absent: respiratory distress, wheezes, rales, rhonchi, stridor Cardiovascular Exam: Present: regular rate, normal rhythm, normal heart sounds. Absent: systolic murmur, diastolic murmur, rubs, gallop, clicks Neurological exam: Present: alert, oriented X3, CN II-XII intact Psychiatric exam: Present: anxious, suicidal ideation, other (Patient extremely tearful with scattered thoughts during examination) Skin exam: Present: warm, dry, intact, normal color. Absent: rash Course Vital Signs 03/06/25 11:45 Temperature 98.7 F Pulse Rate 122 H Respiratory 18 Rate Blood Pressure 154/94 O2 Sat by Pulse 97 Oximetry - Reevaluation(s) Reevaluation #1: 03/06/25 15:19 Case discussed with Vadim, EPS. He advised on admission Medical Decision Making - Medical Decision Making Was pt. sent in by a medical professional or institution (, PA, TRANSPORT AIDE, urgent care, hospital, or senior care...) When possible be specific @ -No Did you speak to anyone other than the patient for history (EMS, parent, family, police, friend...)? What history was obtained from this source @ -No Did you review nursing and triage notes (agree or disagree)? Why? @ -I reviewed and agree with nursing and triage notes Were old charts reviewed (outside hosp., previous admission, EMS record, old EKG, old radiological studies, urgent care reports/EKG's, senior care records)? Report findings @ -Prior medical record Differential Diagnosis (chest pain, altered mental status, abdominal pain women, abdominal pain men, vaginal bleeding, weakness, fever, dyspnea, syncope, headache, dizziness, GI bleed, back pain, seizure, CVA, palpatations, mental health, musculoskeletal)? @ -Differential Mental Health: Depression, anxiety, bipolar, psychosis, schizophrenia, borderline personality, situational depression, adjustment disorder, behavioral disorder, brain tumor, malingering, substance abuse, encephalopathy, medication reaction, dementia, hypothyroidism, degenerative neurologic disorder, lupus.... This is not meant to be all-inclusive list EKG interpreted by me (3pts min.). @ -[None done X-rays interpreted by me (1pt min.). @ -None done CT interpreted by me (1pt min.). @ -None done U/S interpreted by me (1pt. min.). @ -None done What testing was considered but not performed or refused? (CT, X-rays, U/S, labs)? Why? @ -None What meds were considered but not given or refused? Why? @ -None Did you discuss the management of the patient with other professionals (professionals i.e. , PA, TRANSPORT AIDE, lab, RT, psych nurse, social services counselor, package dyeing machine operator, teacher, facilities officer, casework specialist)? Give summary @ -Case discussed with Vadim, EPS advises on admission Was smoking cessation discussed for >3mins.? @ -No Was critical care preformed (if so, how long)? @ -No Were there social determinants of health that impacted care today? How? (Homelessness, low income, unemployed, alcoholism, drug addiction, transportation, low edu. Level, literacy, decrease access to med. care, detention, rehab)? @ -No Was there de-escalation of care discussed even if they declined (Discuss DNR or withdrawal of care, Hospice)? DNR status @ -No What co-morbidities impacted this encounter? (DM, HTN, Smoking, COPD, CAD, Cancer, CVA, ARF, Chemo, Hep., AIDS, mental health diagnosis, sleep apnea, morbid obesity)? @ -Mental health Was patient admitted / discharged? Hospital course, mention meds given and route, prescriptions, significant lab abnormalities, going to OR and other pertinent info. @ -[Admitted. 49-year-old female presented to the ER for evaluation of suicidal ideations. Vital signs stable. Patient medically cleared for EPS evaluation. Patient evaluated by Vadim, EPS. He advised on admission for further mental health treatment. Patient admitted in stable condition.Case discussed with ED attending, Dr. Godinez. Undiagnosed new problem with uncertain prognosis? @ -No Drug Therapy requiring intensive monitoring for toxicity (Heparin, Nitro, Insulin, Cardizem)? @ -No Were any procedures done? @ -No Diagnosis/symptom? @ -Suicidal ideation Acute, or Chronic, or Acute on Chronic? @ -Acute Uncomplicated (without systemic symptoms) or Complicated (systemic symptoms)? @ -Complicated Side effects of treatment? @ -No Exacerbation, Progression, or Severe Exacerbation? @ -No Poses a threat to life or bodily function? How? (Chest pain, [place], [place], pneumonia, PE, COPD, DKA, ARF, appy, cholecystitis, CVA, Diverticulitis, Homicidal, Suicidal, threat to staff... and all critical care pts) @ -Yes, suicidal - Lab Data Lab Results 03/06/25 Range/Units 12:07 Urine Opiates Screen Not Detected (NotDetected) Ur Oxycodone Screen Not Detected (NotDetected) Urine Methadone Screen Not Detected (NotDetected) Ur Barbiturates Screen Not Detected (NotDetected) U Tricyclic Antidepress Not Detected (NotDetected) Ur Phencyclidine Scrn Not Detected (NotDetected) Ur Amphetamines Screen Not Detected (NotDetected) U Methamphetamines Scrn Not Detected (NotDetected) U Benzodiazepines Scrn Not Detected (NotDetected) Urine Cocaine Screen Not Detected (NotDetected) U Marijuana (THC) Screen Not Detected (NotDetected) Disposition Clinical Impression: Suicidal ideation Disposition: ADMITTED IP TO THIS HOSP Condition: Stable Referrals: None,Stated [Primary Care Provider] - 1-2 days Time of Disposition: 15:21
[2025-03-06 12:35] LABS: Amphetamine Screen,Urine Not Detected (NotDetected); Barbiturate Screen,Urine Not Detected (NotDetected); Benzodiazepines Screen,Urine Not Detected (NotDetected); Cocaine Screen,Urine Not Detected (NotDetected); Methadone Screen, Urine Not Detected (NotDetected); Opiate Screen,Urine Not Detected (NotDetected); Oxycodone Screen, Urine Not Detected (NotDetected); Phencyclidine Screen,Urine Not Detected (NotDetected); Tricyclic Antidepressant,Urine Not Detected (NotDetected); Urn Cannabinoid Scrn Not Detected (NotDetected)
[2025-03-06] MEDS: NICOTINE GUM (POLACRILEX) 2 MG GUM BUCCAL STA (15:33)
[2025-03-06] MEDS ORDERED: ACETAMINOPHEN TAB 325 MG TAB PO PRN (16:03)
[2025-03-06] MEDS ORDERED: MAGNESIUM HYDROXIDE 2,400 MG/30 ML CUP PO PRN (16:03)
[2025-03-06] MEDS ORDERED: traZODone HCL 100 MG TAB PO PRN (16:10)
[2025-03-06] MEDS ORDERED: haloperidoL 5 MG TAB PO PRN (16:10)
[2025-03-06] MEDS ORDERED: HALOPERIDOL LACTATE 5 MG/ML 1 ML VIAL IM PRN (16:10)
[2025-03-06] MEDS: NICOTINE GUM (POLACRILEX) 2 MG GUM BUCCAL PRN (17:20)
[2025-03-06] MEDS: DIVALPROEX 500 MG TABLET.DR PO SCH (20:50)
[2025-03-06] MEDS: ARIPiprazole 15 MG TAB PO SCH (20:50)
[2025-03-06] MEDS: PROPRANOLOL 10 MG TAB PO SCH (20:51)
[2025-03-07 02:37] LABS: Appearance,Urine Clear (Clear); Bilirubin,Urine Negative (Negative); Blood,Urine Negative (Negative); Color,Urine Light Yellow; Glucose,Urine (UA) Negative (Negative); Ketones,Urine Negative (Negative); Leukocyte Esterase,Urine Negative (Negative); Nitrite,Urine Negative (Negative); PH, Urine 7.5 (5.0-8.0); Protein,Urine Negative (Negative); Specific Gravity,Urine 1.023 (1.001-1.035); Urobilinogen,Urine <2.0 mg/dL (<2.0)
[2025-03-07 08:45] LABS: Basophils # (A) 0.06 10*3/uL (0.00-0.10); Basophils % (A) 0.7 %; Eosinophils % (A) 1.2 %; HCT 42.9 % (37.2-46.3); HGB 14.4 g/dL (12.0-15.0); Lymphocytes # (A) 2.59 10*3/uL (0.90-5.00); Lymphocytes % (A) 31.4 %; MCH 30.4 pg (27.0-32.0); MCHC 33.6 g/dL (32.0-37.0); MCV 90.5 fL (80.0-97.0); Mean Platelet Volume 9.4 fL (9.5-12.2); Monocytes # (A) 0.57 10*3/uL (0.20-1.00); Monocytes % (A) 6.9 %; Neutrophils # (A) 4.91 10*3/uL (1.80-7.70); Neutrophils % (A) 59.4 %; Platelet Count 359 10*3/uL (140-440); RBC 4.74 10*6/uL (4.10-5.20); WBC 8.26 10*3/uL (4.50-10.00)
[2025-03-07] MEDS: NICOTINE GUM (POLACRILEX) 2 MG GUM BUCCAL PRN (11:31)
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
[2025-03-07 12:38] LABS: ALT 14 U/L (4-34); AST 18 U/L (14-36); African American GFR (CKD) >90 (>60 ml/min/1.73 sqM); Albumin 4.3 g/dL (3.5-5.0); Alkaline Phosphatase 61 U/L (38-126); Anion Gap 9 mmol/L; Blood Urea Nitrogen 14 mg/dL (7-17); Calcium 9.4 mg/dL (8.4-10.2); Carbon Dioxide 27 mmol/L (22-30); Chloride 100 mmol/L (98-107); Glucose 77 mg/dL (74-99); Non-African American GFR(CKD) >90 (>60 ml/min/1.73 sqM); Potassium 4.6 mmol/L (3.5-5.1); Sodium 136 mmol/L (137-145); Total Bilirubin 0.2 mg/dL (0.2-1.3); Total Protein 7.3 g/dL (6.3-8.2)
[2025-03-07 13:31] LABS: Valproic Acid (Depakene) 39.4 ug/mL
--- NOTE | 2025-03-07 14:32 | P.HPMEDMHU ---
History of Present Illness H&P Date: 03/07/25 Patient is a 49-year-old female with history of lupus on Plaquenil, bipolar disorder currently in behavioral health unit. Sound physicians consulted for medical management. Vital signs reviewed, stable. WBC 8.26, hemoglobin 14.4, platelet 359, creatinine 0.51, A1c 6.6, urinalysis and urine toxicology negative. Patient denies any chest pain, shortness of breath, abdominal pain, nausea, vomiting, urinary or bowel complaints. She claims that her only 2 complaints is concern for possible worsening dental caries for which she wants to see a dentist, and has onychomycosis and may need treatment for that. Pertinent positives and negatives as discussed in HPI, a complete review of sy stems was performed and all other systems are negative. Patient seen and examined at bedside. Vital signs reviewed General: nontoxic, no distress, appears at stated age Derm: warm, dry, left great toe onychomycosis without any significant erythema, discharge or edema Head: atraumatic, normocephalic, symmetric Eyes: EOMI, no lid lag, anicteric sclera, pupils equal round reactive to light ENT: Nose and ears atraumatic Neck: No thyromegaly, supple Mouth: no lip lesion, mucus membranes moist, dental caries involving mandibular molars bilaterally Cardiovascular: S1S2 reg, no murmur, no edema Lungs: clear to auscultation bilateral, no rhonchi, no rales, no wheeze, no accessory muscle use Abdominal: soft, nontender to palpation, no guarding, no appreciable organomegaly Ext: no gross muscle atrophy, muscle strength muscle strength 5 out of 5 in all 4 extremities, no contractures Neuro: CN II-XII grossly intact Psych: Alert, oriented, appropriate affect Assessment/Plan: Active: Lupus, not in exacerbation - Continue Plaquenil 200 twice daily - Patient has previously had prolonged QT, considering she has been getting Abilify as well as as needed Haldol, we will get an EKG Type 2 diabetes - A1c 6.6 - Consider metformin at the time of discharge Nicotine dependence -Counseled regarding smoking cessation Dental caries - Outpatient follow-up with dentist Onychomycosis - Not severe enough to warrant oral therapy - Topical therapy is usually not very effective - Continue to monitor Bipolar disorder - Management per psychiatry Thank you for allowing us to participate in the care of this pleasant patient. Do not hesitate to contact us with questions. Someone can be reached from the [facility] hospitalist group all hours of the day at [phone] or via [employer]. Past Medical History Past Medical History: No Reported History Additional Past Medical History / Comment(s): Lupus History of Any Multi-Drug Resistant Organisms: None Reported Past Surgical History: No Surgical Hx Reported Past Anesthesia/Blood Transfusion Reactions: No Reported Reaction Past Psychological History: Anxiety, Bipolar, Depression Smoking Status: Current every day smoker Past Alcohol Use History: None Reported Past Drug Use History: None Reported - Past Family History Family Family Medical History: Hypertension Medications and Allergies Home Medications Medication Instructions Recorded Confirmed Type Hydroxychloroquine Sulfate 200 mg PO BID 30 Days #60 tab 01/18/23 03/06/25 Rx [Plaquenil] ARIPiprazole [Abilify] 15 mg PO HS 01/09/25 03/06/25 History Nicotine Gum (Polacrilex) 2 mg BUCCAL Q1H PRN 01/09/25 03/06/25 History [Nicorette] Divalproex [Depakote] 500 mg PO BID 03/06/25 03/06/25 History Propranolol [Inderal] 10 mg PO HS 03/06/25 03/06/25 History Allergies Allergy/AdvReac Type Severity Reaction Status Date / Time carbamazepine [From Tegretol] Allergy Rash/Hives Verified 03/06/25 13:48 divalproex sodium Allergy Unknown - Verified 03/06/25 13:48 [From Depakote] see comment hydrocodone [From Vicodin] Allergy Dyspnea Verified 03/06/25 13:48 lithium Allergy Rash/Hives/Bubbles Verified 03/06/25 13:48 on Lips olanzapine [From Zyprexa] Allergy Unknown Verified 03/06/25 13:48 Sulfa (Sulfonamide Allergy Rash/Hives/ Verified 03/06/25 13:48 Antibiotics) Itchy ziprasidone [From Geodon] Allergy Unknown Verified 03/06/25 13:48 per OASIS lorazepam [From Ativan] AdvReac memory Verified 03/06/25 13:48 loss, blackouts first generation psych meds AdvReac Severe Uncoded 03/06/25 13:48 stiffness Physical Exam Vitals: Vital Signs Temp Pulse Pulse Resp BP BP Pulse Ox 03/07/25 08:40 113 H 18 111/69 98 03/06/25 21:00 97.6 F 97 16 133/84 97 03/06/25 16:40 98.3 F 95 16 116/76 97 Intake and Output 03/06/25 03/07/25 03/07/25 22:59 06:59 14:59 Other: Weight 84.482 kg Cranial Nerve Examination - Cranial Nerves Cranial Nerve II- Optic: Intact Cranial Nerve III- Oculomotor: Intact Cranial Nerve IV- Trochlear: Intact Cranial Nerve V- Trigeminal: Intact Cranial Nerve - Abducens: Intact Cranial Nerve VII- Facial: Intact Cranial Nerve VIII- Auditory: Intact Cranial Nerve IX- Glossopharyngeal: Intact Cranial Nerve X- Vagus: Intact Cranial Nerve XI- Accessory: Intact Cranial Nerve XII- Hypoglossal: Intact Results CBC & Chem 7: 03/07/25 07:26 03/07/25 11:31 Labs: Abnormal Lab Results - Last 24 Hours (Table) 03/07/25 03/07/25 03/07/25 Range/Units 07: 07: 11:31 MPV 9.4 L (9.5-12.2) fL Sodium 136 L (137-145) mmol/L Creatinine 0.51 L (0.52-1.04) mg/dL Hemoglobin A1c 6.6 H (<=6.0) % Thrombosis Risk Factor Assmnt - Choose All That Apply Each Factor Represents 1 point: Obesity (BMI >25) Other Risk Factors: Yes Each Risk Factor Represents 3 Points: Positive Lupus Anticoagulant Other congenital or acquired thrombophilia - If yes, enter type in comment: No Thrombosis Risk Factor Assessment Total Risk Factor Score: 4 Thrombosis Risk Factor Assessment Level: Moderate Risk
[2025-03-07] MEDS: HYDROXYCHLOROQUINE SULFATE 200 MG TAB PO SCH (20:59)
--- NOTE | 2025-03-08 07:08 | P.PN ---
Subjective Progress Note Date: 03/08/25 Principal diagnosis: Bipolar 1 mixed severe Subjective: The patient says that she slept better last night however her mind jumps [id number] between problems and the second she thinks of a possible solution she should sit down. For example if she does not go back to her husb and she is worried she will. 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 She feels that the Abilify is better than any of the other medicine she has tried but it does give her muscle stiffness and she would like to try to find something else that would work on her moods. Of course she hears the milligrams related to Depakote and thinks it is a high dose and is very hesitant about increase. However her Depakote level was half a therapeutic at about 40 she was willing to increase to thousand tonight and 500 in the morning I told her she would probably need a total of 2000 a day to do the job and once everything was stable then she could talk to her doctors about possibly backing down on the Abilify so that she does not have the stiffness Mental status exam: Her affect was serious but she was cooperative more on the sad side but some flight of ideas I did not see any psychosis and she denied hallucinations or delusions. Gait and station were normal self-care was adequate eye contact was good psychomotor was somewhat decreased. She does feel hopeless and cannot see any way forward other than suicidal. No homicidal thoughts. Diagnosis: Bipolar 1 mixed severe She is danger to self due to self contempt lack of hope and psychotic irrational. Increase Depakote to 1500 a day. If we could stabilize the mood with Depakote she would like to get off of dopamine 2 blockers due to 2 side effects. Objective - Vital Signs Vital signs: Vital Signs Temp 97.2 F L 03/07/25 21:00 Pulse 76 03/07/25 21:00 Resp 17 03/07/25 21:00 BP 117/81 03/07/25 21:00 Pulse Ox 97 03/07/25 21:00 FiO2 - Labs CBC & Chem 7: 03/07/25 07:26 03/07/25 11:31 Labs: Abnormal Lab Results - Last 24 Hours (Table) 03/07/25 03/07/25 03/07/25 Range/Units 07:26 07:26 11:31 MPV 9.4 L (9.5-12.2) fL Sodium 136 L (137-145) mmol/L Creatinine 0.51 L (0.52-1.04) mg/dL Hemoglobin A1c 6.6 H (<=6.0) %
[2025-03-08] MEDS: DIVALPROEX 500 MG TABLET.DR PO SCH ×2 (08:22→20:25)
[2025-03-08] MEDS: MAG HYDROX/AL HYDROX/SIMETH 355 ML BOTTLE PO PRN (14:47)
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
[2025-03-09] MEDS: ARIPiprazole 10 MG TAB PO SCH (20:34)
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
[2025-03-10 21:46] VITALS: RESP 16
[2025-03-11 09:17] LABS: HCT 41.2 % (37.2-46.3); HGB 13.8 g/dL (12.0-15.0); MCH 30.7 pg (27.0-32.0); MCHC 33.5 g/dL (32.0-37.0); MCV 91.6 fL (80.0-97.0); Mean Platelet Volume 9.2 fL (9.5-12.2); Platelet Count 260 10*3/uL (140-440); RDW 13.6 % (11.5-14.5); WBC 8.68 10*3/uL (4.50-10.00)
[2025-03-11 09:51] LABS: Bilirubin, Delta 0.1 mg/dL (0.0-0.2); Bilirubin,Unconjugated 0.2 mg/dL (0.0-1.1); Total Bilirubin 0.3 mg/dL (0.2-1.3); Total Protein 6.5 g/dL (6.3-8.2)
--- NOTE | 2025-03-11 12:38 | P.PN ---
Progress Note - Text Progress Note Date: 03/11/25 Chief complaint: Bipolar disorder Interval History: Patient was seen wandering the hallways and was directable and agreeable to speak with database report writer in the office. The patient presented to the she was doing "great". She denies mood swings, grandiose thoughts, pressured speech, or sleep difficulties. She notes that her energy is normal. She notes appetite is normal and no problems with concentration. She denies any ongoing depression. She denies any ongoing anxiety. She denies any side effects with the medication including stomach pain or diarrhea. We reviewed her labs which it was explained that everything was normal. 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 Mental Status Exam: General Appearance: Patient appears to be stated age is alert, directable, and c ooperative. Behavior: Patient is calmly seated without any agitated behavior. Speech: Patient's speech is fluent and nonpressured. Mood/Affect: Mood is improving mildly, affect is congruent and constricted. Suicidality/Homicidality: Patient denies having any suicidal or homicidal ideation intent or plan. Perceptions: Patient denies any visual hallucinations and denies any auditory hallucinations Though content/process: There is no evidence of any delusional thought content and thought process is linear and goal-directed. Memory and concentration: AOX3, grossly intact for the purposes of this session Judgment and insight: Improving mildly Diagnosis: Bipolar disorder type I most recent episode depressed Assessment: The Patient is doing well anticipated discharge tomorrow. Will complete stabilization at this point. Plan: -Patient continues to meet criteria for inpatient psychiatric admission for symptom stabilization and safety. Patient has signed adult voluntary form and medication consent and was placed in patient's chart. -Medications: Continue Abilify to 10 mg once at night for bipolar disorder. Depakote 500 mg take 1 tablet by mouth once daily in the morning for mood s tabilization Depakote 1000 mg take 1 tablet by mouth once daily for mood stabilization Propranolol 10 mg take 1 tablet at bedtime for insomnia Trazodone 100 mg take 1 tablet by mouth at bedtime for insomnia -Labs Valproic acid-checking level CBC-Normal Liver function-Normal -When necessary Ativan and Haldol for agitation/aggression. -NRT -None -SW on board for discharge planning. Encouraged the patient to participate in milieu. The patient's presentation
[2025-03-11] MEDS: IBUPROFEN 600 MG TAB PO PRN (14:43)
[2025-03-12 08:31] VITALS: BP 106/70; PULSE 113; TEMP 97.9
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
== END 2025-03-12 13:20 | disposition home or self-care (01) | DRG 885 ==
LOC: EC 11:34 → 3MHU 15:54
PROVIDERS: ADMIT Psychiatry & Neurology Psychiatry; ATTEND Psychiatry & Neurology Psychiatry
DX: F31.30 Bipolar disorder, current episode depressed, mild or moderate severity, unspecified (principal); T74.91XA Unspecified adult maltreatment, confirmed, initial encounter; R45.851 Suicidal ideations; Z59.01 Sheltered homelessness; E11.9 Type 2 diabetes mellitus without complications; F17.210 Nicotine dependence, cigarettes, uncomplicated; B35.1 Tinea unguium; G24.9 Dystonia, unspecified; T43.595A Adverse effect of other antipsychotics and neuroleptics, initial encounter; F41.9 Anxiety disorder, unspecified; Z79.899 Other long term (current) drug therapy; Y07.010 Husband, current, perpetrator of maltreatment and neglect; Z88.5 Allergy status to narcotic agent; Z88.2 Allergy status to sulfonamides; Z88.8 Allergy status to other drugs, medicaments and biological substances; K02.9 Dental caries, unspecified; G47.00 Insomnia, unspecified
CPT/HCPCS: 80053; 80076; 80164; 80165; 80306; 81003; 81025; 82075; 83036; 84443; 85025; 85027; 87635; 93005; 99285